=== PATIENT | female | born 1995 | race Caucasian/White ===

== ENCOUNTER 2020-11-18 11:50 | Outpatient (REF) | payer OTHER, SELFPAY ==
[2020-11-18 13:42] LABS: HCG Quantitative < 2 mIU/mL
== END 2020-11-18 11:51 | disposition home or self-care (01) ==
LOC: HO.MANLDS 11:50
PROVIDERS: PCP Internal Medicine; Visit Provider Physician Assistant
DX: Z33.1 Pregnant state, incidental (principal)
CPT/HCPCS: 36415; 84702

== ENCOUNTER 2021-09-03 08:00 | Outpatient (RCR) | payer OTHER, SELFPAY ==
[2021-08-03 12:17] VITALS: BMI 18.3
--- NOTE | 2021-08-03 15:12 | PC.ADMIT ---
Patient is a 25 year old female who was referred to PHP by her PCP d/t increased depression with passive SI no plan or intent, and increased anxiety with panic attacks. Patient tearful at times stating she feels overwhelmed with emotions. Stated she does not enjoy anything anymore. Feelings of helplessness and hopelessness. Reported triggers include having 4 miscarriages as she and her were trying to have a baby. Patient reports significant trauma history and stated the aforementioned information has triggered her past trauma. Patient currently works in the [employer] industry and stated she is on a break for a month. Patient is alert and oriented x4. tearful at times. Presents with depressed mood and affect. Medications reconciled with patient and patients pharmacy. Also reconciled patients Lorazepam-last filled in February with patient's PCP's office who prescribes the medication who stated patient is no longer prescribed this medication. Latia Newsome is aware. Emailed patient a copy of her safety plan and education about Calm breathing techniques for panic.
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
--- NOTE | 2021-08-05 16:32 | PC.NURSE ---
Case opened in treatment team.
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
--- NOTE | 2021-08-11 16:36 | PC.NURSE ---
I sent pt an email with information on [facility] support groups.
--- NOTE | 2021-08-12 14:17 | PC.NURSE ---
I called [facility] to inquire about referral that I faxed on 08/06. Staff informed me that they had the wrong location , so they haven't scheduled her for an intake yet. She told me that she corrected this and that the director of the [facility] office would be reaching out to me with an appointment soon.
--- NOTE | 2021-08-16 12:49 | P.PNPSP_ITS ---
Subjective Subjective Date of Service: 08/16/21 Reason For Visit: Bipolar Disorder, Panic Disorder Guardianship: No Medical Problems Affecting Mental Status: No Interim History: Asked if her could stay in appointment. Describes mood as ?good?. Reports increased anxiety, with panic over weekend. Has had thoughts of passive SI over weekend, no intent or plan. Utilizing Ativan with positive affect. Reports appetite has been up and down. Reports good sleep. Medication Compliance: Yes Side effects from medications: No Attending Groups: Yes Review of Systems Acute medical concerns: No Medical Review of Systems: unchanged Review of Systems Review of Systems Yes all other systems are reviewed and are negative Constitutional: Reports no additional constitutional complaints Mental Status Exam Mental Status Exam Narrative: Well-developed, thin female, in NAD. Patient Appearance: Well Grooomed and Appropriate Patient Orientation: Person, Place, Time and Situation Level of Consciousness: Awake, Appropriate and Alert Patient Behavior: Appropriate, Cooperative and Good Eye Contact Mood Description: Appropriate and Anxious Affect Description: Appropriate and Anxious Patient Cognition Impaired: No Ability to Follow Directions: Excellent Speech Pattern: Clear, Appropriate and Coherent Memory Description: Intact Hallucinations: None Delusions: Not Present Thought Process: Intact Thought Content: positive for Intact and positive for Suicidal Ideation (passive, no intent/plan.) Depressive Symptoms: Increased Anxiety, Changes in Appetite, Loss of Int. in Activity and Thoughts of /Suicide Judgement: Fair Diagnostics Vital Signs (24Hr): BMI result Body Mass Index 18.3 Assessment & Plan Assessment & Plan (1) Bipolar disorder, current episode depressed, mild or moderate severity, unspecified: Status: Acute Code(s): F31.30 - Bipolar disorder, current episode depressed, mild or moderate severity, unspecified Assessment and Plan: Patient reports she has experienced increased anxiety and panic over the weekend. Has had passive SI, no intent or plan. Reports appetite changes, a been down. Reports sleep has been good. Has started taking Lamictal, will switch to 50 mg daily start tomorrow. No side effects reported, discussed in detail risks, benefits, alternatives to treatment with Lamictal. Patient has not yet started utilizing p.r.n. clonidine, reports that she is utilizing p.r.n. lorazepam that she has left over. States that once her lorazepam is done, she will start clonidine. Medication education regarding clonidine provided. Reports that groups are helping to learn and practice new coping skills. Reports a referral has been placed with [facility] for a therapist and a psychiatric prescriber. (2) Post-traumatic stress disorder, chronic: Status: Acute Code(s): F43.12 - Post-traumatic stress disorder, chronic Assessment and Plan: No nightmares, flashbacks, exaggerated startle response, hypervigilance reported. (3) Panic attack: Status: Acute Code(s): F41.0 - Panic disorder [episodic paroxysmal anxiety] Assessment and Plan: Patient does report having experienced panic over the past weekend. She is currently utilizing p.r.n. medications with positive affect. Plan 1. Continue with current [facility] plan of care. 2. Continue with current medications as prescribed. Patient states she does not need any refills at this time. 3. Follow-up as per protocol. Patient educated on: diagnosis, medication risk/benefits and therapeutic strategies Informed Consent: understands Reason for contiued partial hosp. stay Substantial Risk for: harm to self, inability to function and med/psych decompensation Certification I certify that partial hospital treatment is medically necessary due to the symptoms and problems resulting from the patient's mental illness and the failure to treat the patient at the partial hospital level of care would likely result in the patient requiring inpatient psychiatric care which could not be prevented at a less intensive level of care. I spent minutes with the patient and/or on the patient floor today, greater than?50% of which was spent counseling/coordinating care. Discharge Plan Discharge Attending provider: Mane Oneal Medications: New clonidine HCl 0.1 mg tablet 0.1 mg PO TID PRN (Reason: anxiety) Qty: 20 0RF lamotrigine [Lamictal] 25 mg tablet 25 mg PO BEDTIME 14 Days Qty: 14 0RF lamotrigine [Lamictal] 100 mg tablet 50 mg PO DAILY Qty: 30 0RF Rx Instructions: Take 1/2 tab for 2 weeks to total 50 mg, then increase to 1 tab daily to total 100 mg. No Action meloxicam 15 mg Tablet 15 mg PO DAILY PRN (Reason: Pain) 0RF quetiapine [Seroquel] 200 mg Tablet 200 mg PO BEDTIME 0RF omeprazole 40 mg Capsule,Delayed Release(Dr/Ec) 40 mg PO DAILY 0RF amitriptyline 10 mg Tablet 20 mg PO BEDTIME 0RF Label Comments: Patient stated she is tapering off this medication. Starting next Monday she will take 10 mg Q HS x one week then d/c. Once d/c patient is to start Emgality pen loading dose 240 mg then take 120 mg once a month. fludrocortisone 0.1 mg Tablet 0.2 mg PO DAILY 0RF quetiapine [Seroquel] 50 mg Tablet 50 mg PO BEDTIME 0RF ondansetron 4 mg Film 4 mg PO Q8H PRN (Reason: Nausea) 0RF sumatriptan succinate 100 mg Tablet 100 mg PO Q2H PRN (Reason: Migraine Headache) 0RF Rx Instructions: do not exceed 2 doses per 24 hrs alprazolam [Xanax] 0.5 mg Tablet 0.5 mg PO TID PRN (Reason: Anxiety) 0RF Rx Instructions: Filled 08/03/21 for 30 day supply. Telehealth Telehealth Location of provider rendering services: practice address Location of patient: address on file Patient Identification confirmed using: Name, : Yes Telehealth method: video Patient verbally consented to treatment: Yes Patient verbally consented to billing insurance company: Yes Patient informed of any privacy concerns related to visit: Yes Time spent with patient (mins): 20
--- NOTE | 2021-08-18 14:41 | PC.NURSE ---
I called [facility] again to check the status of the referral for pt. The intake person answered the phone and said hold on , then hung up. I called several more times and she eventually answered and immediately hung up. I called several [facility] office locations in [place], and left several messages, but was not able to reach a person.
--- NOTE | 2021-08-18 14:43 | PC.NURSE ---
I called pt and left a message. She was quite shut-down in the 3rd and 4th groups, not verbally participating. I asked her to please call.
--- NOTE | 2021-08-19 10:02 | PC.NURSE ---
I got a call from Marisol (?) at [facility] who left me a message returning one of my calls. She said I need to call the [facility] for info about this referral ([phone]). I did this, and spoke to Fide Juares, who transferred me to an intake person in [place] for more info. I was then told that I have to call the [facility]. She transferred me to [facility] and I left a message for Rose.
--- NOTE | 2021-08-19 16:10 | PC.NURSE ---
Pt called and I spoke to her. She said she wont be able to attend program tomorrow, 08/20/21. She shared that her has been having blurred vision and she needs to accompany her to the eye doctor. Corry inquired about aftercare, and I updated her on the referral to [facility]. We discussed [facility] support, and she has explored their website and filled out an application to join.
--- NOTE | 2021-08-24 12:49 | HO.PHPPROGNO ---
Subjective Subjective Date of Service: 08/24/21 Reason For Visit: Bipolar Disorder, Panic Disorder Interim History: I evaluated the pt this morning and upon interview she reports today was up and down for me, mood is all over the place. Has had increased situational stress, as is having an issue with her eye, on prednisone drops, and her mom is having health issues i.e. there's a spot on her lungs. Says the past week has been great with sleep, uses edibles. Still having nightmares. Reports positive benefit on lamictal, likes the increased dose, I am feeling a lot better. Says xanax is helping, taking it once a night, no panic attacks. No impulsive behavior, i.e. spending, ranting. Medication Compliance: Yes Side effects from medications: No Attending Groups: Yes Review of Systems Acute medical concerns: No Medical Review of Systems: unchanged Mental Status Exam Mental Status Exam Narrative: Well-developed, thin female, in NAD. Patient Appearance:?Well Grooomed and Appropriate Patient Orientation:?Person, Place, Time and Situation Level of Consciousness:?Awake, Appropriate and Alert Patient Behavior:?Appropriate, Cooperative and Good Eye Contact Mood Description:?Appropriate and Anxious Affect Description:?Appropriate and Anxious Patient Cognition Impaired:?No Ability to Follow Directions:?Excellent Speech Pattern:?Clear, Appropriate and Coherent Memory Description:?Intact Hallucinations:?None Delusions:?Not Present Thought Process:?Intact Thought Content:?positive for Intact and positive for Suicidal Ideation (passive, no intent/plan.) Depressive Symptoms:?Increased Anxiety, Changes in Appetite, Loss of Int. in Activity and Thoughts of /Suicide Judgement:?Fair Diagnostics Vital Signs (24Hr): BMI result Body Mass Index 18.3 Assessment & Plan Assessment & Plan (1) Bipolar II disorder: Status: Acute Code(s): F31.81 - Bipolar II disorder (2) Post-traumatic stress disorder, chronic: Status: Acute Code(s): F43.12 - Post-traumatic stress disorder, chronic Plan Pt reports positive effect on Lamictal 50 mg, wants to be able to increase to 100 mg after 2 weeks, no side effects, no rash. Utilizing xanax for panic sx from PCP. She is not using clonidine. Reports some mood dysregulation, dealing with situational stress, however sleep and self care are intact. Will continue medications unchanged and monitor for benefit. Plan 1. Continue with current [facility] plan of care. 2. Continue with current medications as prescribed.? Patient states she does not need any refills at this time. 3. Follow-up as per protocol. Patient educated on: medication risk/benefits Certification I certify that partial hospital treatment is medically necessary due to the symptoms and problems resulting from the patient's mental illness and the failure to treat the patient at the partial hospital level of care would likely result in the patient requiring inpatient psychiatric care which could not be prevented at a less intensive level of care. I spent minutes with the patient and/or on the patient floor today, greater than?50% of which was spent counseling/coordinating care. Discharge Plan Discharge Attending provider: Mane Oneal Additional Instructions: Appointment for intake on September 07 at 11am with MARILIN Talavera at [facility] ([facility] [address] [place] [address], in-person. Medications: New clonidine HCl 0.1 mg tablet 0.1 mg PO TID PRN (Reason: anxiety) Qty: 20 0RF lamotrigine [Lamictal] 25 mg tablet 25 mg PO BEDTIME 14 Days Qty: 14 0RF lamotrigine [Lamictal] 100 mg tablet 50 mg PO DAILY Qty: 30 0RF Rx Instructions: Take 1/2 tab for 2 weeks to total 50 mg, then increase to 1 tab daily to total 100 mg. No Action meloxicam 15 mg Tablet 15 mg PO DAILY PRN (Reason: Pain) 0RF quetiapine [Seroquel] 200 mg Tablet 200 mg PO BEDTIME 0RF omeprazole 40 mg Capsule,Delayed Release(Dr/Ec) 40 mg PO DAILY 0RF amitriptyline 10 mg Tablet 20 mg PO BEDTIME 0RF Label Comments: Patient stated she is tapering off this medication. Starting next Monday she will take 10 mg Q HS x one week then d/c. Once d/c patient is to start Emgality pen loading dose 240 mg then take 120 mg once a month. fludrocortisone 0.1 mg Tablet 0.2 mg PO DAILY 0RF quetiapine [Seroquel] 50 mg Tablet 50 mg PO BEDTIME 0RF ondansetron 4 mg Film 4 mg PO Q8H PRN (Reason: Nausea) 0RF sumatriptan succinate 100 mg Tablet 100 mg PO Q2H PRN (Reason: Migraine Headache) 0RF Rx Instructions: do not exceed 2 doses per 24 hrs alprazolam [Xanax] 0.5 mg Tablet 0.5 mg PO TID PRN (Reason: Anxiety) 0RF Rx Instructions: Filled 08/03/21 for 30 day supply. Stand Alone Forms: Patient Portal Discharge page
--- NOTE | 2021-08-24 15:05 | PC.NURSE ---
I called [facility] to inquire about referral, as no one has called. Central registration transferred me to [facility] location. desk manager staff looked pt up in the computer and again said that the referral went to [facility], and to call them. I called [facility] and staff was unable to find the referral at first. She finally did find it, and then said she might not be able to schedule pt because of the type of insurance she has. She transferred me back to [facility], where I spoke to Tomasa Juares. Tomasa tried making multiple phone calls to different location directors while I was on the phone. She finally found and made an appt for pt for September 07 at 11am with MARILIN Talavera on [address] [facility] in person. Tomasa said that if Rose (website programmer) calls me, to ask if I can get a sooner appointment.
--- NOTE | 2021-08-24 15:35 | PC.NURSE ---
I called pt at her request. She said she wants to inform staff that she was a bit overwhelmed in the first group, as she thought a peer might have been voicing political beliefs that she disagrees with. She said she didn't want staff to think she was being disrespectful. I validated feeling and we discussed options for f this happens again. I also let pt know about her intake appt at [facility][NOTE 3] on 09/07/21.
--- NOTE | 2021-09-02 12:06 | P.PNPSP_ITS ---
Subjective Subjective Date of Service: 09/02/21 Reason For Visit: Bipolar Disorder, Panic Disorder Guardianship: No Medical Problems Affecting Mental Status: No Interim History: Reports the increased lamictal seems to be helping. Overall mood much improved. Feels hopeful for future, and returning to work. Has noticed steady decrease in panic attacks, has now gone several days at a time without needing to use xanax prn. No reports of SI/HI/SIB, no safety concerns. Medication Compliance: Yes Side effects from medications: No Attending Groups: Yes Review of Systems Acute medical concerns: No Medical Review of Systems: unchanged Review of Systems Review of Systems Yes all other systems are reviewed and are negative Constitutional: Reports no additional constitutional complaints Mental Status Exam Mental Status Exam Narrative: Well-developed, thin female, in NAD. Patient Appearance:?Well Grooomed and Appropriate. Patient Orientation:?Person, Place, Time and Situation Level of Consciousness:?Awake, Appropriate and Alert Patient Behavior:?Appropriate, Cooperative and Good Eye Contact Mood Description:? ?I am good ?. Affect Description:? Mood congruent, brightens easily. Patient Cognition Impaired:?No Ability to Follow Directions:?Excellent Speech Pattern:?Clear, Appropriate and Coherent, regular rate and rhythm, full prosody, normal volume. Memory Description:?Intact Hallucinations:?None Delusions:?Not Present Thought Process:?Intact, linear, goal directed. Thought Content:? Intact, linear, goal directed. Depressive Symptoms:?Overall much improved, denies anhedonia. Judgement:?Good Diagnostics Vital Signs (24Hr): BMI result Body Mass Index 18.3 Assessment & Plan Assessment & Plan (1) Bipolar II disorder: Status: Acute Code(s): F31.81 - Bipolar II disorder Assessment and Plan: Patient reports overall mood improvement with added Lamictal. States she is currently taking 100 mg daily, with positive affect. We discussed her current medications, including indications, risks, benefits, and alternatives. She is satisfied with her current medication regimen. She states that her primary care provider is willing to cover her scripts until she sees new psychiatric prescriber. Expresses hope for the future, and returning to work soon. Denies any SI/HI, no safety concerns at this time. (2) Panic attack: Status: Acute Code(s): F41.0 - Panic disorder [episodic paroxysmal anxiety] Assessment and Plan: Patient reports improved symptoms with current medication regimen. Believes the added Lamictal is helping to lessen frequency and severity of panic attacks. She states she has been able to go several days at a time without needing the p.r.n. Xanax. (3) Post-traumatic stress disorder, chronic: Status: Acute Code(s): F43.12 - Post-traumatic stress disorder, chronic Plan 1. Patient appears stable for discharge from [facility] at this time. 2. Patient will follow-up with outpatient providers going forward. Patient educated on: diagnosis, medication risk/benefits and therapeutic strategies Informed Consent: understands Reason for contiued partial hosp. stay Substantial Risk for: stable for discharge Certification I certify that partial hospital treatment is medically necessary due to the symptoms and problems resulting from the patient's mental illness and the failure to treat the patient at the partial hospital level of care would likely result in the patient requiring inpatient psychiatric care which could not be prevented at a less intensive level of care. I spent minutes with the patient and/or on the patient floor today, greater than?50% of which was spent counseling/coordinating care. Discharge Plan Discharge Attending provider: Mane Oneal Additional Instructions: Appointment for intake on September 07 at 11am with MARILIN Talavera at [facility] ([facility]NOTE 3[facility] [address] [place] [address], in-person. Medications: New clonidine HCl 0.1 mg tablet 0.1 mg PO TID PRN (Reason: anxiety) Qty: 20 0RF lamotrigine [Lamictal] 25 mg tablet 25 mg PO BEDTIME 14 Days Qty: 14 0RF lamotrigine [Lamictal] 100 mg tablet 50 mg PO DAILY Qty: 30 0RF Rx Instructions: Take 1/2 tab for 2 weeks to total 50 mg, then increase to 1 tab daily to total 100 mg. No Action meloxicam 15 mg Tablet 15 mg PO DAILY PRN (Reason: Pain) 0RF quetiapine [Seroquel] 200 mg Tablet 200 mg PO BEDTIME 0RF omeprazole 40 mg Capsule,Delayed Release(Dr/Ec) 40 mg PO DAILY 0RF amitriptyline 10 mg Tablet 20 mg PO BEDTIME 0RF Label Comments: Patient stated she is tapering off this medication. Starting next Monday she will take 10 mg Q HS x one week then d/c. Once d/c patient is to start Emgality pen loading dose 240 mg then take 120 mg once a month. fludrocortisone 0.1 mg Tablet 0.2 mg PO DAILY 0RF quetiapine [Seroquel] 50 mg Tablet 50 mg PO BEDTIME 0RF ondansetron 4 mg Film 4 mg PO Q8H PRN (Reason: Nausea) 0RF sumatriptan succinate 100 mg Tablet 100 mg PO Q2H PRN (Reason: Migraine Headache) 0RF Rx Instructions: do not exceed 2 doses per 24 hrs alprazolam [Xanax] 0.5 mg Tablet 0.5 mg PO TID PRN (Reason: Anxiety) 0RF Rx Instructions: Filled 08/03/21 for 30 day supply. Stand Alone Forms: Patient Portal Discharge page Telehealth Telehealth Location of provider rendering services: practice address Location of patient: address on file Patient Identification confirmed using: Name, : Yes Telehealth method: video Patient verbally consented to treatment: Yes Patient verbally consented to billing insurance company: Yes Patient informed of any privacy concerns related to visit: Yes Time spent with patient (mins): 15
--- NOTE | 2021-09-03 08:49 | PC.NURSE ---
Patient discharged from [facility] on 09/02/21. Patient reports she feels good about discharge. Denied SI or thoughts to harm self. Reviewed patient medications with patient. Patient reports she is taking them as prescribed. Medication education provided. She appears to understand why she is taking the medications.
== END 2021-09-03 23:59 | disposition home or self-care (01) ==
LOC: HO.PHPA 08:00
PROVIDERS: Visit Provider Psychiatry & Neurology Psychiatry
DX: F31.30 Bipolar disorder, current episode depressed, mild or moderate severity, unspecified (principal); F41.0 Panic disorder [episodic paroxysmal anxiety]; F60.3 Borderline personality disorder; F43.12 Post-traumatic stress disorder, chronic; F41.1 Generalized anxiety disorder
CPT/HCPCS: 90791; 90853

== ENCOUNTER → 2022-03-02 06:46 | Outpatient (REF) | payer OTHER, SELFPAY | LOC: HO.CARD 06:46 | PROVIDERS: PCP Physician Assistant; Visit Provider Physician Assistant | DX: I95.1 Orthostatic hypotension (principal) | CPT/HCPCS: 93242 ==

== ENCOUNTER 2022-04-05 10:00 | Outpatient (RCR) | payer OTHER, SELFPAY ==
[2022-03-07 13:00] VITALS: BP 112/64; PULSE 64; RESP 12; TEMP 36.4
[2022-03-07 13:02] VITALS: BMI 19.3
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
[2022-03-07 15:51] LABS: Amphetamine Screen Urine Not Detected (Not Detect); Barbiturates, Urine Not Detected (Not Detect); Benzodiazepines Screen Urine POSITIVE (Not Detect); Cannabinoid Screen Urine POSITIVE (Not Detect); Cocaine Screen Urine Not Detected (Not Detect); Fentanyl, urine Not Detected (Not Detect); Opiate Screen Urine Not Detected (Not Detect); Phencyclidine Screen Urine Not Detected (Not Detect)
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
--- NOTE | 2022-03-09 12:14 | PC.NURSE ---
I met with Corry and we reviewed treatment plan. We also discussed schedule and aftercare plans. Corry is interested in individual therapy and wants a DBT group. She says she wants to continue psychiatric medication management with her PCP, as her PCP is educated in psychiatric medication and has a trusting relationship with her. Corry reports having a negative experience with [facility] mental health referrals and experiences and would like to find a therapist in private practice. I spoke to her about the [employer] find a therapist tool, and she agreed to explore this. I told her I'd look into a referral to [facility]'s DBT program as well. Finally, I gave Corry information about [facility], [facility], [facility], and [facility].
--- NOTE | 2022-03-10 15:16 | PC.NURSE ---
Case opened in treatment team.
--- NOTE | 2022-03-17 14:54 | HO.PHPPROGNO ---
Subjective Subjective Date of Service: 03/17/22 Reason For Visit: bipolar,PTSD,panic d/o Guardianship: No Medical Problems Affecting Mental Status: No Interim History: Describes mood as continued up and down, but overall improving . Reports increase of Seroquel is helping manage anxiety. States has not needed to use the Xanax as much. Reports in the morning if not rested for 8 hours, will have palpitations. Recently completed with Holter monitor x3 days. Continues with nightmares. Medication Compliance: Yes Side effects from medications: No Attending Groups: Yes Review of Systems Acute medical concerns: No Medical Review of Systems: unchanged Review of Systems Review of Systems Yes all other systems are reviewed and are negative Constitutional: Reports no additional constitutional complaints Mental Status Exam Mental Status Exam Narrative: NAD Patient Appearance: Well Grooomed and Appropriate Patient Orientation: Person, Place, Time and Situation Level of Consciousness: Appropriate and Alert Patient Behavior: Appropriate, Cooperative and Good Eye Contact Mood Description: Depressed (States improving) and Anxious (States improving) Affect Description: Appropriate Patient Cognition Impaired: No Ability to Follow Directions: Excellent Speech Pattern: Clear, Appropriate and Coherent Memory Description: Intact Hallucinations: None Delusions: Not Present Thought Process: Intact Thought Content: positive for Intact Depressive Symptoms: Increased Anxiety, Insomnia, Difficulty Sleeping, Loss of Int. in Activity and Unhappiness Judgement: Fair Diagnostics Vital Signs (24Hr): BMI result Body Mass Index 19.3 Assessment & Plan Assessment & Plan (1) Bipolar II disorder: Status: Acute Code(s): F31.81 - Bipolar II disorder Assessment and Plan: Describes mood as continued up and down, but overall improving . Finding groups to be helpful. Reports increase of Seroquel is helping manage anxiety. States has not needed to use the Xanax as much. Reports in the morning if not rested for 8 hours, will have palpitations. Recently completed with Holter monitor x3 days. Discussed completing EKG, as patient is now on a higher dose of Seroquel. Discussed checking QTC interval. She was in agreement. Continues with nightmares related to PTSD. Has clonidine, has not been using. Discussed trialing over next several days. If not effective, will switch to low-dose prazosin. Discussed risks and benefits, alternatives to treatment, side effects. (2) Panic attack: Status: Acute Code(s): F41.0 - Panic disorder [episodic paroxysmal anxiety] (3) Post-traumatic stress disorder, chronic: Status: Acute Code(s): F43.12 - Post-traumatic stress disorder, chronic Plan 1. Continue with current [facility] plan of care. 2. Continue with current medication regimen as prescribed. 3. Obtain EKG. 4. Follow-up as per protocol. Patient educated on: diagnosis, medication risk/benefits and therapeutic strategies Informed Consent: understands Reason for contiued partial hosp. stay Substantial Risk for: inability to function, rapid decompensation and med/psych decompensation Certification I certify that partial hospital treatment is medically necessary due to the symptoms and problems resulting from the patient's mental illness and the failure to treat the patient at the partial hospital level of care would likely result in the patient requiring inpatient psychiatric care which could not be prevented at a less intensive level of care. I spent minutes with the patient and/or on the patient floor today, greater than?50% of which was spent counseling/coordinating care. Discharge Plan Discharge Attending provider: Mane Oneal Medications: Discontinued lamotrigine [Lamictal] 25 mg tablet 25 mg PO BEDTIME 14 Days Qty: 14 0RF lamotrigine [Lamictal] 100 mg tablet 50 mg PO DAILY Qty: 30 0RF Rx Instructions: Take 1/2 tab for 2 weeks to total 50 mg, then increase to 1 tab daily to total 100 mg. No Action meloxicam 15 mg Tablet 15 mg PO DAILY PRN (Reason: Pain) quetiapine [Seroquel] 200 mg Tablet 200 mg PO BEDTIME omeprazole 40 mg Capsule,Delayed Release(Dr/Ec) 40 mg PO DAILY fludrocortisone 0.1 mg Tablet 0.2 mg PO DAILY ondansetron 4 mg Film 4 mg PO Q8H PRN (Reason: Nausea) sumatriptan succinate 100 mg Tablet 100 mg PO Q2H PRN (Reason: Migraine Headache) Rx Instructions: do not exceed 2 doses per 24 hrs clonidine HCl 0.1 mg tablet 0.1 mg PO TID PRN (Reason: anxiety) Qty: 20 0RF alprazolam [Xanax] 0.5 mg Tablet 0.5 mg PO TID PRN (Reason: Anxiety) Rx Instructions: Filled 08/03/21 for 30 day supply. Emgality Pen 120 mg/mL Pen Injector 120 mg SUBCUT QMONTH Rx Instructions: Patient reports this as a new medication. lamotrigine 100 mg tablet 100 mg PO DAILY quetiapine 50 mg Tablet 100 mg PO BEDTIME
[2022-03-21 12:01] VITALS: BP 122/74; PULSE 80
--- NOTE | 2022-03-21 16:07 | P.PNPSP_ITS ---
Subjective Subjective Date of Service: 03/21/22 Reason For Visit: bipolar,PTSD,panic d/o Interim History: Describes mood as anxious but improving. No SI concerns. Taking Lamictal 75 mg daily. Reports the increased Seroquel dose it to 50 daily has helped improve anxiety symptoms. Reports has only needed 1 Xanax over the weekend. Tried clonidine, says it helped the 1st night and then was not effective. Medication Compliance: Yes Side effects from medications: No Attending Groups: Yes Review of Systems Acute medical concerns: No Medical Review of Systems: unchanged Review of Systems Review of Systems Yes all other systems are reviewed and are negative Constitutional: Reports no additional constitutional complaints Mental Status Exam Mental Status Exam Narrative: NAD Patient Appearance: Well Grooomed and Appropriate Patient Orientation: Person, Place, Time and Situation Level of Consciousness: Appropriate and Alert Patient Behavior: Appropriate, Cooperative and Good Eye Contact Mood Description: Anxious (States improving) Affect Description: Appropriate and Anxious (Slightly anxious.) Patient Cognition Impaired: No Ability to Follow Directions: Excellent Speech Pattern: Clear, Appropriate and Coherent Memory Description: Intact Hallucinations: None Delusions: Not Present Thought Process: Intact Thought Content: positive for Intact Depressive Symptoms: Increased Anxiety, Insomnia, Difficulty Sleeping and Unhappiness Judgement: Fair Diagnostics Vital Signs (24Hr): Vital Signs - 24 hr 03/21/22 12:01 Pulse Rate 80 Blood Pressure 122/74 BMI result Body Mass Index 19.3 Assessment & Plan Assessment & Plan (1) Bipolar II disorder: Status: Acute Code(s): F31.81 - Bipolar II disorder Assessment and Plan: Reports increase in Seroquel dose has helped improve symptoms, less anxious. Took clonidine 1 night for PTSD/nightmares/sleep. Reports that was affective 1st night, and then not effective. We discussed adding prazosin instead of clonidine. Discussed risks and benefits, advantages, side effects, etc.. She is willing to try this. Discussed obtaining EKG in order to check for QTC interval regarding recent increased dose of quetiapine. Patient recently has had Holter monitor on for 3 days, results not available at this time. No SI, no safety concerns at this time. (2) Post-traumatic stress disorder, chronic: Status: Acute Code(s): F43.12 - Post-traumatic stress disorder, chronic Plan 1. Continue with current [facility] plan of care. 2. Discontinue clonidine. 3. Start prazosin 1 mg at bedtime. Script for 7 days sent to pharmacy. 4. Continue with all other medications as currently prescribed. 5. Follow-up as per protocol. Patient educated on: diagnosis, medication risk/benefits and therapeutic strategies Informed Consent: understands Reason for contiued partial hosp. stay Substantial Risk for: harm to self and inability to function Certification I certify that partial hospital treatment is medically necessary due to the symptoms and problems resulting from the patient's mental illness and the failure to treat the patient at the partial hospital level of care would likely result in the patient requiring inpatient psychiatric care which could not be prevented at a less intensive level of care. I spent minutes with the patient and/or on the patient floor today, greater than?50% of which was spent counseling/coordinating care. Discharge Plan Discharge Attending provider: Mane Oneal Medications: New prazosin 1 mg capsule 1 mg PO BEDTIME Qty: 7 0RF Discontinued clonidine HCl 0.1 mg tablet 0.1 mg PO TID PRN (Reason: anxiety) Qty: 20 0RF lamotrigine [Lamictal] 25 mg tablet 25 mg PO BEDTIME 14 Days Qty: 14 0RF lamotrigine [Lamictal] 100 mg tablet 50 mg PO DAILY Qty: 30 0RF Rx Instructions: Take 1/2 tab for 2 weeks to total 50 mg, then increase to 1 tab daily to total 100 mg. No Action meloxicam 15 mg Tablet 15 mg PO DAILY PRN (Reason: Pain) quetiapine [Seroquel] 200 mg Tablet 200 mg PO BEDTIME omeprazole 40 mg Capsule,Delayed Release(Dr/Ec) 40 mg PO DAILY fludrocortisone 0.1 mg Tablet 0.2 mg PO DAILY ondansetron 4 mg Film 4 mg PO Q8H PRN (Reason: Nausea) sumatriptan succinate 100 mg Tablet 100 mg PO Q2H PRN (Reason: Migraine Headache) Rx Instructions: do not exceed 2 doses per 24 hrs alprazolam [Xanax] 0.5 mg Tablet 0.5 mg PO TID PRN (Reason: Anxiety) Rx Instructions: Filled 08/03/21 for 30 day supply. Emgality Pen 120 mg/mL Pen Injector 120 mg SUBCUT QMONTH Rx Instructions: Patient reports this as a new medication. lamotrigine 100 mg tablet 100 mg PO DAILY quetiapine 50 mg Tablet 100 mg PO BEDTIME Stand Alone Forms: Patient Portal Discharge page Patient Education: Prazosin (By mouth)
--- NOTE | 2022-03-22 10:04 | HO.PHPIOP ---
After speaking with pt, at her request, I called N and placed a referral for a DBT group at [facility] ([phone]). Earlier, I spoke with Diandra Killian, [facility], [facility] and she said they should have an opening in one of the DBT groups, and if not, they are working on gathering clients for a new group. When I spoke to staff in central registration, I was told pt will get a call re: groups in the next week. I also placed a referral for pt to get individual therapy. I was told it's okay if pt wants to continue looking in private practice and can take whichever calls back first or whichever she chooses.
[2022-03-23 12:55] VITALS: BP 126/80; PULSE 76
--- NOTE | 2022-03-29 09:45 | HO.PHPIOP ---
I spoke with pt, and she said she has received a call from [facility] re: a intake for individual therapy. She said, however, that she has not yet heard any info about intake for DBT groups at [place]. I called and spoke to [facility], who transferred me o the hotel front desk clerk, who transferred me to the for Chata Harrison, with whom I left a message. I asked for a call back to confirm that they received the referral for DBT.
--- NOTE | 2022-03-31 13:24 | P.PNPSP_ITS ---
Subjective Subjective Date of Service: 03/31/22 Reason For Visit: bipolar,PTSD,panic d/o Medical Problems Affecting Mental Status: No Interim History: Reports overall doing well. Some increase in depressive symptoms since reducing dose of Lamictal. Decreased anxiety since increase of quetiapine. Prazosin helping with nightmares. No SI/HI, no safety concerns. Medication Compliance: Yes Side effects from medications: No Attending Groups: Yes Review of Systems Acute medical concerns: No Medical Review of Systems: unchanged Review of Systems Review of Systems Yes all other systems are reviewed and are negative Constitutional: Reports no additional constitutional complaints Mental Status Exam Mental Status Exam Narrative: NAD Patient Appearance: Well Grooomed and Appropriate Patient Orientation: Person, Place, Time and Situation Level of Consciousness: Appropriate and Alert Patient Behavior: Appropriate, Cooperative and Good Eye Contact Mood Description: Depressed Affect Description: Appropriate Patient Cognition Impaired: No Ability to Follow Directions: Excellent Speech Pattern: Clear, Appropriate and Coherent Memory Description: Intact Hallucinations: None Delusions: Not Present Thought Process: Intact Thought Content: positive for Intact Depressive Symptoms: Loss of Int. in Activity and Unhappiness Judgement: Fair Diagnostics Vital Signs (24Hr): BMI result Body Mass Index 19.3 Assessment & Plan Assessment & Plan (1) Post-traumatic stress disorder, chronic: Status: Acute Code(s): F43.12 - Post-traumatic stress disorder, chronic Assessment and Plan: Reports improvement with nightmares since taking prazosin. would like to continue it. (2) Panic attack: Status: Acute Code(s): F41.0 - Panic disorder [episodic paroxysmal anxiety] Assessment and Plan: Reports decrease in anxiety symptoms since taking increased dose of quetiapine. Reports utilizing the Xanax much less frequently. (3) Bipolar disorder, current episode depressed, mild or moderate severity, unspecified: Status: Acute Code(s): F31.30 - Bipolar disorder, current episode depressed, mild or moderate severity, unspecified Assessment and Plan: Reports that since the Lamictal has been lowered, she has been experiencing a slow increase in depressive symptoms. States that the issue regarding libido was the reason she had lowered the dose. She states that this is no longer the case, and would like to resume 100 mg daily. No SI/HI, no safety concerns. Plan 1. Continue with current [facility] plan of care. 2. Resume lamotrigine 100 mg daily. Patient has supply at home. 3. Continue quetiapine 300 mg daily. 4. Continue prazosin 1 mg at bedtime. 5. Follow-up as per protocol. Patient educated on: diagnosis, medication risk/benefits and therapeutic stradel mac Informed Consent: understands Reason for contiued partial hosp. stay Substantial Risk for: inability to function and rapid decompensation Certification I certify that partial hospital treatment is medically necessary due to the symptoms and problems resulting from the patient's mental illness and the failure to treat the patient at the partial hospital level of care would likely result in the patient requiring inpatient psychiatric care which could not be prevented at a less intensive level of care. I spent minutes with the patient and/or on the patient floor today, greater than?50% of which was spent counseling/coordinating care. Discharge Plan Discharge Attending provider: Mane Oneal Medications: New quetiapine 300 mg tablet 300 mg PO BEDTIME Qty: 30 0RF prazosin 1 mg capsule 1 mg PO BEDTIME Qty: 30 0RF Discontinued quetiapine [Seroquel] 200 mg Tablet 200 mg PO BEDTIME clonidine HCl 0.1 mg tablet 0.1 mg PO TID PRN (Reason: anxiety) Qty: 20 0RF lamotrigine [Lamictal] 25 mg tablet 25 mg PO BEDTIME 14 Days Qty: 14 0RF lamotrigine [Lamictal] 100 mg tablet 50 mg PO DAILY Qty: 30 0RF Rx Instructions: Take 1/2 tab for 2 weeks to total 50 mg, then increase to 1 tab daily to total 100 mg. quetiapine 50 mg Tablet 100 mg PO BEDTIME No Action meloxicam 15 mg Tablet 15 mg PO DAILY PRN (Reason: Pain) omeprazole 40 mg Capsule,Delayed Release(Dr/Ec) 40 mg PO DAILY fludrocortisone 0.1 mg Tablet 0.2 mg PO DAILY ondansetron 4 mg Film 4 mg PO Q8H PRN (Reason: Nausea) sumatriptan succinate 100 mg Tablet 100 mg PO Q2H PRN (Reason: Migraine Headache) Rx Instructions: do not exceed 2 doses per 24 hrs alprazolam [Xanax] 0.5 mg Tablet 0.5 mg PO TID PRN (Reason: Anxiety) Rx Instructions: Filled 08/03/21 for 30 day supply. Emgality Pen 120 mg/mL Pen Injector 120 mg SUBCUT QMONTH Rx Instructions: Patient reports this as a new medication. lamotrigine 100 mg tablet 100 mg PO DAILY Stand Alone Forms: Patient Portal Discharge page Patient Education: Prazosin (By mouth)
--- NOTE | 2022-04-05 13:15 | P.PNPSP_ITS ---
Subjective Subjective Date of Service: 04/05/22 Reason For Visit: bipolar,PTSD,panic d/o Medical Problems Affecting Mental Status: No Interim History: Lives mood as ?anxious but good ?. States the anxiety is due to completing program today, ?in a good way ?. No SI/HI, reports feeling safe. Satisfied with current medications. Continues with chronic poor sleep. Looking forward to stop completing intake at [facility], to start DBT group. Also plans to start attending bipolar/depression support group. Feels stable for discharge from [facility] today. Medication Compliance: Yes Side effects from medications: No Attending Groups: Yes Review of Systems Acute medical concerns: No Medical Review of Systems: unchanged Review of Systems Review of Systems Yes all other systems are reviewed and are negative Mental Status Exam Mental Status Exam Narrative: NAD Patient Appearance: Well Grooomed and Appropriate Patient Orientation: Person, Place, Time and Situation Level of Consciousness: Appropriate and Alert Patient Behavior: Appropriate, Cooperative and Good Eye Contact Mood Description: Anxious Affect Description: Appropriate Patient Cognition Impaired: No Ability to Follow Directions: Excellent Speech Pattern: Clear, Appropriate and Coherent Memory Description: Intact Hallucinations: None Delusions: Not Present Thought Process: Intact Thought Content: positive for Intact Depressive Symptoms: Difficulty Sleeping Judgement: Good Diagnostics Vital Signs (24Hr): BMI result Body Mass Index 19.3 Assessment & Plan Assessment & Plan (1) Bipolar II disorder: Status: Acute Code(s): F31.81 - Bipolar II disorder Assessment and Plan: Lives mood as ?anxious but good ?. States the anxiety is due to completing program today, ?in a good way ?. No SI/HI, reports feeling safe. Satisfied with current medications. Took Xanax this morning, with positive affect. Continues with chronic poor sleep. Looking forward to stop completing intake at [facility], to start DBT group. Also plans to start attending bipolar/depression support group. Feels stable for discharge from [facility] today. (2) Panic attack: Status: Acute Code(s): F41.0 - Panic disorder [episodic paroxysmal anxiety] (3) Post-traumatic stress disorder, chronic: Status: Acute Code(s): F43.12 - Post-traumatic stress disorder, chronic Plan 1. Patient appears stable for discharge from [facility] at this time. 2. Patient to follow-up with outpatient providers going forward. Patient educated on: diagnosis, medication risk/benefits and therapeutic strategies Reason for contiued partial hosp. stay Substantial Risk for: stable for discharge Certification I certify that partial hospital treatment is medically necessary due to the symptoms and problems resulting from the patient's mental illness and the failure to treat the patient at the partial hospital level of care would likely result in the patient requiring inpatient psychiatric care which could not be prevented at a less intensive level of care. I spent minutes with the patient and/or on the patient floor today, greater than?50% of which was spent counseling/coordinating care. Discharge Plan Discharge Attending provider: Mane Oneal Medications: New quetiapine 300 mg tablet 300 mg PO BEDTIME Qty: 30 0RF prazosin 1 mg capsule 1 mg PO BEDTIME Qty: 30 0RF Discontinued quetiapine [Seroquel] 200 mg Tablet 200 mg PO BEDTIME clonidine HCl 0.1 mg tablet 0.1 mg PO TID PRN (Reason: anxiety) Qty: 20 0RF lamotrigine [Lamictal] 25 mg tablet 25 mg PO BEDTIME 14 Days Qty: 14 0RF lamotrigine [Lamictal] 100 mg tablet 50 mg PO DAILY Qty: 30 0RF Rx Instructions: Take 1/2 tab for 2 weeks to total 50 mg, then increase to 1 tab daily to total 100 mg. quetiapine 50 mg Tablet 100 mg PO BEDTIME No Action meloxicam 15 mg Tablet 15 mg PO DAILY PRN (Reason: Pain) omeprazole 40 mg Capsule,Delayed Release(Dr/Ec) 40 mg PO DAILY fludrocortisone 0.1 mg Tablet 0.2 mg PO DAILY ondansetron 4 mg Film 4 mg PO Q8H PRN (Reason: Nausea) sumatriptan succinate 100 mg Tablet 100 mg PO Q2H PRN (Reason: Migraine Headache) Rx Instructions: do not exceed 2 doses per 24 hrs alprazolam [Xanax] 0.5 mg Tablet 0.5 mg PO TID PRN (Reason: Anxiety) Rx Instructions: Filled 08/03/21 for 30 day supply. Emgality Pen 120 mg/mL Pen Injector 120 mg SUBCUT QMONTH Rx Instructions: Patient reports this as a new medication. lamotrigine 100 mg tablet 100 mg PO DAILY Stand Alone Forms: Patient Portal Discharge page Patient Education: Prazosin (By mouth), Bipolar Disorder (DC), Post Traumatic Stress Disorder (DC)
--- NOTE | 2022-04-06 16:04 | HO.PHPIOP ---
I called N to confirm pt's intake date, as pt said they contacted her to set up an appointment for intake. She is scheduled fot DBT intake on 04/11/22 at 12 noon, but I was told she had an intake for individual therapy on 03/22/22, and is now on a wait list for a first appointment. I called pt and left her a message. I gave her the number for [facility] to attend the Monday DBSA groups, and gave her a list of private practice therapists to call as well (Jennifer Polanco, [facility], Mary Son- all who take [facility] and have availability according to psychology today).
== END 2022-04-05 23:59 | disposition home or self-care (01) ==
LOC: HO.PHPA 10:00
PROVIDERS: Nurse Practitioner Psychiatric/Mental Health; Visit Provider Psychiatry & Neurology Psychiatry
DX: F31.5 Bipolar disorder, current episode depressed, severe, with psychotic features (principal); F41.0 Panic disorder [episodic paroxysmal anxiety]; F60.3 Borderline personality disorder; F43.12 Post-traumatic stress disorder, chronic; F12.20 Cannabis dependence, uncomplicated; Z79.899 Other long term (current) drug therapy
CPT/HCPCS: 80307; 90791; 90792; 90853

== ENCOUNTER 2022-06-03 14:44 | Outpatient (REF) | payer OTHER, SELFPAY ==
[2022-06-03 18:13] LABS: Appearance Urine Turbid; Color Urine Yellow; Glucose Urine UA Negative (Negative); Leukocyte Esterase Urine Large (3+) (Negative); Nitrite Urine Negative (Negative); PH 6.5 (5.0-9.0); Specific Gravity - Urine 1.025 (1.005-1.025); UMIC TRIGGER UACC YES; Urine Blood Trace (Negative); Urine Ketones Trace mg/dL (Negative); Urine Protein 30 (1+) mg/dL (Neg-Trace)
[2022-06-03 18:23] LABS: Bacteria Urine 4+ (None Seen); UACC Culture Trigger YES; WBC Urine >50 /HPF (0-5)
== END 2022-06-03 14:45 | disposition home or self-care (01) ==
LOC: HO.MANLDS 14:44
PROVIDERS: Visit Provider Physician Assistant
DX: R82.998 Other abnormal findings in urine (principal)
CPT/HCPCS: 81001; 87086

== ENCOUNTER 2022-06-06 18:11 | Emergency (ER) | payer OTHER, SELFPAY ==
--- NOTE | ~2022-06-06 | CT_ITS ---
EXAMINATION: CT ABDOMEN AND PELVIS WITHOUT CONTRAST CLINICAL INFORMATION: Back and lower abdominal pain with urinary symptoms. COMPARISON: None TECHNIQUE: Multidetector volumetric imaging was performed from the superior aspect of the liver through the pubic symphysis. Sagittal and coronal reformatted images were obtained on the technologist's workstation. This CT examination was performed using dose optimization techniques as appropriate, variously including the following: *Automated exposure control *Adjustment of mA and/or kV according to patient size (this includes techniques or standardized protocols for targeted exams where dose is matched to indication/reason for exam; i.e. extremities or head) *Use of iterative reconstruction technique DLP: 318 mGy-cm FINDINGS: LUNG BASES: The visualized lung bases are unremarkable. LIVER, GALLBLADDER, AND BILIARY TREE: The liver is normal in size, shape, and attenuation. No focal hepatic lesion or biliary ductal dilatation is present. The gallbladder is unremarkable with no evidence of radiopaque gallstones, gallbladder wall thickening, or obvious pericholecystic inflammatory changes. PANCREAS: Unremarkable. SPLEEN: Unremarkable. ADRENAL GLANDS: Unremarkable. KIDNEYS AND URETERS: The kidneys are normal in size, shape, and attenuation. There are bilateral punctate nonobstructive calculi numbering at least 3 within the left kidney and 2 within the right kidney. No hydronephrosis. No ureteral calculi. No perinephric stranding. BLADDER: Unremarkable. GASTROINTESTINAL TRACT: The small and large bowel are unremarkable. The appendix is unremarkable. ABDOMINAL WALL: No significant hernia is appreciated. LYMPH NODES: Normal. VASCULAR: Unremarkable. PELVIC VISCERA: Unremarkable. OSSEOUS STRUCTURES: Unremarkable. CT/CT abdomen pelvis wo IV con IMPRESSION: * No acute findings within the abdomen or pelvis. * Bilateral punctate nonobstructive intrarenal calculi. * No ureteral calculi or hydronephrosis.
[2022-06-06 19:20] VITALS: BP 149/105; PULSE 81; RESP 16; TEMP 36.7; O2SAT 99; BMI 17.7
--- NOTE | 2022-06-06 19:20 | ED_ITS ---
HPI - General Adult General Chief complaint: Urogenital-Female <DAMIÁN Mahmood - Last Filed: 06/06/22 19:24> Stated complaint: uti non responsive to 2 antibiotics <DAMIÁN Mahmood - Last Filed: 06/06/22 19:24> Time Seen by Provider: 06/06/22 21:33 <DAMIÁN Mahmood - Last Filed: 06/06/22 19:24> Source: patient <Johnie Do MD - Last Filed: 06/07/22 00:14> Mode of arrival: ambulatory <Johnie Do MD - Last Filed: 06/07/22 00:14> Limitations: no limitations <Johnie Do MD - Last Filed: 06/07/22 00:14> History of Present Illness HPI narrative: 26yoF presenting to the ED c c/o worsening urinary symptoms x 2 weeks worse today. Was on amoxicillin for ear infection now on macrobid on day 3 for UTI now c pain to lower back and when she urinates she has a sharp suprapubic abdominal pain/cramping. Fever of 102.0 about 2-3 days. Denies any other symptoms complaints or concerns at this time. Patient does have a history of migraine on sumatriptan and Emgality injections been having headache for last 4 weeks with nausea and vomiting photosensitive+ Patient had a UA done at PCP office on 06/03 culture was negative repeat UA done in the ER at the triage showed improvement of WBC count nitrite positive with WBCs 0-5 <Johnie Do MD - Last Filed: 06/07/22 00:14> Related Data Home medications: Home Medications Medication Instructions Recorded Confirmed fludrocortisone 0.1 mg tablet 0.2 mg PO DAILY 08/03/21 03/07/22 meloxicam 15 mg tablet 15 mg PO DAILY PRN Pain 08/03/21 03/07/22 omeprazole 40 mg capsule,delayed 40 mg PO DAILY 08/03/21 03/07/22 release ondansetron 4 mg oral soluble film 4 mg PO Q8H PRN Nausea 08/03/21 03/07/22 sumatriptan succinate 100 mg tablet 100 mg PO Q2H PRN Migraine Headache 08/03/21 03/07/22 alprazolam 0.5 mg tablet (Xanax) 0.5 mg PO TID PRN Anxiety 08/05/21 03/07/22 galcanezumab-gnlm 120 mg/mL 120 mg subcut QMONTH 09/03/21 03/07/22 subcutaneous pen injector (Emgality Pen) lamotrigine 100 mg tablet 100 mg PO DAILY 03/07/22 03/07/22 Previous Rx's Medication Instructions Recorded prazosin 1 mg capsule 1 mg PO BEDTIME #30 caps 03/31/22 quetiapine 300 mg tablet 300 mg PO BEDTIME #30 tabs 03/31/22 lwrwxwexcj-lewcrnazldqdk-fsvvnyre 1 cap PO Q6H PRN headache #20 caps 06/07/22 50 mg-300 mg-40 mg capsule (Fioricet) phenazopyridine 200 mg tablet 200 mg PO TID 2 days #6 tabs 06/07/22 (Pyridium) <DAMIÁN Mahmood - Last Filed: 06/06/22 19:24> Allergies/adverse reactions: Allergies Allergy/AdvReac Type Severity Reaction Status Date / Time topiramate [From Topamax] AdvReac Leukopenia Verified 08/03/21 12:19 <DAMIÁN Mahmood - Last Filed: 06/06/22 19:24> Review of Systems Review of Systems: Yes all other systems are reviewed and are negative <Johnie Do MD - Last Filed: 06/07/22 00:14> [facility] Past Medical History Medical History: Medical History Asthma History of recurrent miscarriages Migraine Postural orthostatic tachycardia syndrome <DAMIÁN Mahmood - Last Filed: 06/06/22 19:24> Social History Social History: Social History Household Members: Spouse Patient Tobacco Use Status: Never used Tobacco Smoked in Last 30 Days: No Use of substances other than those prescribed or required for medical reasons: No Substance Use Type: Marijuana Advance Directives: No Advance Directives Information Provided: No Patient : No <DAMIÁN Mahmood - Last Filed: 06/06/22 19:24> Physical Exam ED Vital Signs: Vital Signs - 24 hr 06/06/22 19:20 06/06/22 21:27 06/06/22 23:11 Temperature 98.0 F 98.0 F 97.5 F Pulse Rate 81 67 78 Respiratory Rate 16 14 12 Blood Pressure 149/105 H 158/109 H 134/93 H Pulse Oximetry 99 98 100 Oxygen Delivery Method Room Air Room Air Room Air BMI result Body Mass Index 17.7 <DAMIÁN Mahmood - Last Filed: 06/06/22 19:24> Vital Signs - 24 hr 06/06/22 19:20 06/06/22 21:27 06/06/22 23:11 Temperature 98.0 F 98.0 F 97.5 F Pulse Rate 81 67 78 Respiratory Rate 16 14 12 Blood Pressure 149/105 H 158/109 H 134/93 H Pulse Oximetry 99 98 100 Oxygen Delivery Method Room Air Room Air Room Air BMI result Body Mass Index 17.7 <Johnie Do MD - Last Filed: 06/07/22 00:14> Appearance: Alert. Oriented X3. No acute distress. Eyes: PERRLA, No Nystagmus ENT: Pharynx normal. Oral Mucosa moist Neck: Normal inspection. Neck supple. CVS: Normal heart rate and rhythm. Pulses normal. Respiratory: No respiratory distress. Equal air entry bilateral, no wheezing/rales/rhonchi Abdomen: Soft and nontender. Bowel sounds are present, no mass palpable, no CVA tenderness diffuse tenderness and lumbar spine area Skin: Skin warm and dry. Normal skin color. Normal skin turgor. Extremities: No lower extremity edema. No calf tenderness Neuro: Oriented X 3. No motor deficit. <Johnie Do MD - Last Filed: 06/07/22 00:14> Course Course Course Narrative: RME- 19:25pm 26yoF presenting to the ED c c/o worsening urinary symptoms x 2 weeks worse today. Was on amoxicillin for ear infection now on macrobid on day 3 for UTI now c pain to lower back and when she urinates she has a sharp suprapubic abdominal pain/cramping. Fever of 102.0 about 2-3 days. Denies any other symptoms complaints or concerns at this time. Plan: Labs, UA, COVID/RSV/flu swab and a CT scan of abdomen pelvis ordered at this time. Patient will be sent back to the waiting room to be evaluated in the ED. <DAMIÁN Mahmood - Last Filed: 06/06/22 19:24> Medications Administered Discontinued Medications Generic Name Dose Route Start Last Admin Trade Name Freq PRN Reason Stop Dose Admin Dexamethasone 10 mg 06/06/22 22:20 06/06/22 23:01 Dexamethasone 2 Mg Tablet PO 06/06/22 22:21 10 mg ONCE ONE Administration Diphenhydramine HCl 25 mg 06/06/22 22:20 06/06/22 23:01 Diphenhydramine Hcl 50 Mg/Ml Vial IVPUSH 06/06/22 22:21 25 mg ONCE ONE Administration Sodium Chloride 1,000 mls @ 999 mls/hr 06/06/22 22:20 06/06/22 23:01 Ns IV 06/06/22 23:20 999 mls/hr .Q1H1M ONE Administration Ketorolac Tromethamine 30 mg 06/06/22 22:20 06/06/22 23:01 Ketorolac Tromethamine 30 Mg/Ml Vial IVPUSH 06/06/22 22:21 30 mg ONCE ONE Administration Metoclopramide HCl 10 mg 06/06/22 22:20 06/06/22 23:01 Metoclopramide Hcl 10 Mg/2 Ml Vial IVPUSH 06/06/22 22:21 10 mg ONCE ONE Administration Phenazopyridine HCl 200 mg 06/06/22 22:22 06/06/22 23:02 Phenazopyridine Hcl 200 Mg Tablet PO 06/06/22 22:23 200 mg ONCE ONE Administration <DAMIÁN Mahmood - Last Filed: 06/06/22 19:24> Medications Administered Discontinued Medications Generic Name Dose Route Start Last Admin Trade Name Freq PRN Reason Stop Dose Admin Dexamethasone 10 mg 06/06/22 22:20 06/06/22 23:01 Dexamethasone 2 Mg Tablet PO 06/06/22 22:21 10 mg ONCE ONE Administration Diphenhydramine HCl 25 mg 06/06/22 22:20 06/06/22 23:01 Diphenhydramine Hcl 50 Mg/Ml Vial IVPUSH 06/06/22 22:21 25 mg ONCE ONE Administration Sodium Chloride 1,000 mls @ 999 mls/hr 06/06/22 22:20 06/06/22 23:01 Ns IV 06/06/22 23:20 999 mls/hr .Q1H1M ONE Administration Ketorolac Tromethamine 30 mg 06/06/22 22:20 06/06/22 23:01 Ketorolac Tromethamine 30 Mg/Ml Vial IVPUSH 06/06/22 22:21 30 mg ONCE ONE Administration Metoclopramide HCl 10 mg 06/06/22 22:20 06/06/22 23:01 Metoclopramide Hcl 10 Mg/2 Ml Vial IVPUSH 06/06/22 22:21 10 mg ONCE ONE Administration Phenazopyridine HCl 200 mg 06/06/22 22:22 06/06/22 23:02 Phenazopyridine Hcl 200 Mg Tablet PO 06/06/22 22:23 200 mg ONCE ONE Administration <Johnie Do MD - Last Filed: 06/07/22 00:14> Medical Decision Making Medical Decision Making [facility] Narrative: Patient with migraine headache improving UTI felt better after IV Toradol Benadryl and regular discharge patient home on Fioricet and advised to continue Macrobid <Johnie Do MD - Last Filed: 06/07/22 00:14> Lab Data [facility] Lab Attestation statement: I reviewed the patient's lab results. <Johnie Do MD - Last Filed: 06/07/22 00:14> Result Diagrams: : 06/06/22 19:49 06/06/22 19:49 <DAMIÁN Mahmood - Last Filed: 06/06/22 19:24> Labs: Lab Results 06/06/22 06/06/22 06/06/22 Range/Units 19:49 19:49 19:49 WBC 6.6 (4.8-10.8) X10*3/uL RBC 4.42 (4.20-5.50) X10*6/uL Hgb 12.3 (12.0-16.0) g/dl Hct 38.8 (37.0-47.0) % MCV 87.8 (80.0-98.0) fL MCH 27.8 (27.0-33.0) pg MCHC 31.7 (31.0-35.0) g/dl RDW 13.9 (11.0-16.0) % Plt Count 288 (160-400) X10*3/uL MPV 9.5 (9.4-12.3) fL Immature Gran % (Auto) 0.2 (0.0-0.4) % Neut % (Auto) 54.6 (45-73) % Lymph % (Auto) 34.5 (20-40) % [place] % (Auto) 9.1 (2-11) % Eos % (Auto) 0.8 (0-4) % Baso % (Auto) 0.8 (0-2) % Lymph # (Auto) 2.3 (1.2-4.9) X10*3/uL [place] # (Auto) 0.6 (0.1-1.2) X10*3/uL Eos # (Auto) 0.1 (0.0-0.4) X10*3/uL Baso # (Auto) 0.1 (0.0-0.2) X10*3/uL Abs Immat Gran (auto) 0.01 (0.00-0.03) X10*3/uL Absolute Neuts (auto) 3.6 (2.0-8.3) x10*3/uL Absolute Nucleated RBC 0.000 (0.0-0.012) X10*3/uL Nucleated RBC % (auto) 0.0 (0.0-0.2) /100WBC PT 11.2 (10.0-13.1) SEC INR 1.0 (0.9-1.1) Sodium 142 (135-145) mmol/L Potassium 3.7 (3.3-5.1) mmol/L Chloride 107 (96-108) mmol/L Carbon Dioxide 29 (22-29) mmol/L Anion Gap 10 L (12-20) BUN 9 (9-16) mg/dL Creatinine 0.81 (0.5-1.4) mg/dL Estim Creat Clear Calc 81.4 Estimated GFR > 60 Random Glucose 113 (60-115) mg/dL Calcium 9.6 (8.4-10.2) mg/dL Magnesium 2.3 (1.6-2.6) mg/dL Total Bilirubin 0.6 (0.0-1.0) mg/dL AST 14 (5-31) U/L ALT 13 (0-31) U/L Alkaline Phosphatase 63 (39-117) U/L Total Protein 6.9 (6.5-8.0) g/dL Albumin 4.6 (3.5-5.0) g/dL Lipase 35 (8-78) U/L Beta HCG, Quant < 2 mIU/mL Urine Color Urine Appearance Urine pH (5.0-9.0) Ur Specific [place] (1.005-1.025) Urine Protein (Neg-Trace) mg/dL Urine Glucose (UA) (Negative) mg/dL Urine Ketones (Negative) mg/dL Urine Blood (Negative) Urine Nitrite (Negative) Ur Leukocyte Esterase (Negative) Urine RBC (0-2) /HPF Urine WBC (0-5) /HPF Ur Squamous Epith Cells (0-2) /HPF Urine Bacteria (None Seen) Hyaline Casts (0-2) /LPF Influenza Type A (PCR) (Negative) Influenza Type B (PCR) (Negative) RSV RNA Qual (PCR) (Negative) SARS-CoV-2 RNA (RT-PCR) (Negative) 06/06/22 06/06/22 Range/Units 19:49 19:49 WBC (4.8-10.8) X10*3/uL RBC (4.20-5.50) X10*6/uL Hgb (12.0-16.0) g/dl Hct (37.0-47.0) % MCV (80.0-98.0) fL MCH (27.0-33.0) pg MCHC (31.0-35.0) g/dl RDW (11.0-16.0) % Plt Count (160-400) X10*3/uL MPV (9.4-12.3) fL Immature Gran % (Auto) (0.0-0.4) % Neut % (Auto) (45-73) % Lymph % (Auto) (20-40) % [place] % (Auto) (2-11) % Eos % (Auto) (0-4) % Baso % (Auto) (0-2) % Lymph # (Auto) (1.2-4.9) X10*3/uL [place] # (Auto) (0.1-1.2) X10*3/uL Eos # (Auto) (0.0-0.4) X10*3/uL Baso # (Auto) (0.0-0.2) X10*3/uL Abs Immat Gran (auto) (0.00-0.03) X10*3/uL Absolute Neuts (auto) (2.0-8.3) x10*3/uL Absolute Nucleated RBC (0.0-0.012) X10*3/uL Nucleated RBC % (auto) (0.0-0.2) /100WBC PT (10.0-13.1) SEC INR (0.9-1.1) Sodium (135-145) mmol/L Potassium (3.3-5.1) mmol/L Chloride (96-108) mmol/L Carbon Dioxide (22-29) mmol/L Anion Gap (12-20) BUN (9-16) mg/dL Creatinine (0.5-1.4) mg/dL Estim Creat Clear Calc Estimated GFR Random Glucose (60-115) mg/dL Calcium (8.4-10.2) mg/dL Magnesium (1.6-2.6) mg/dL Total Bilirubin (0.0-1.0) mg/dL AST (5-31) U/L ALT (0-31) U/L Alkaline Phosphatase (39-117) U/L Total Protein (6.5-8.0) g/dL Albumin (3.5-5.0) g/dL Lipase (8-78) U/L Beta HCG, Quant mIU/mL Urine Color Dark Yellow Urine Appearance Cloudy Urine pH 6.5 (5.0-9.0) Ur Specific [place] 1.015 (1.005-1.025) Urine Protein Negative (Neg-Trace) mg/dL Urine Glucose (UA) Negative (Negative) mg/dL Urine Ketones Trace (Negative) mg/dL Urine Blood Negative (Negative) Urine Nitrite Positive H (Negative) Ur Leukocyte Esterase Small (1+) H (Negative) Urine RBC 3-5 H (0-2) /HPF Urine WBC 0-5 (0-5) /HPF Ur Squamous Epith Cells 6-10 (0-2) /HPF Urine Bacteria 1+ (None Seen) Hyaline Casts 0-2 (0-2) /LPF Influenza Type A (PCR) NEGATIVE (Negative) Influenza Type B (PCR) NEGATIVE (Negative) RSV RNA Qual (PCR) NEGATIVE (Negative) SARS-CoV-2 RNA (RT-PCR) NEGATIVE (Negative) <DAMIÁN Mahmood - Last Filed: 06/06/22 19:24> Lab Results 06/06/22 06/06/22 06/06/22 Range/Units 19:49 19:49 19:49 WBC 6.6 (4.8-10.8) X10*3/uL RBC 4.42 (4.20-5.50) X10*6/uL Hgb 12.3 (12.0-16.0) g/dl Hct 38.8 (37.0-47.0) % MCV 87.8 (80.0-98.0) fL MCH 27.8 (27.0-33.0) pg MCHC 31.7 (31.0-35.0) g/dl RDW 13.9 (11.0-16.0) % Plt Count 288 (160-400) X10*3/uL MPV 9.5 (9.4-12.3) fL Immature Gran % (Auto) 0.2 (0.0-0.4) % Neut % (Auto) 54.6 (45-73) % Lymph % (Auto) 34.5 (20-40) % [place] % (Auto) 9.1 (2-11) % Eos % (Auto) 0.8 (0-4) % Baso % (Auto) 0.8 (0-2) % Lymph # (Auto) 2.3 (1.2-4.9) X10*3/uL [place] # (Auto) 0.6 (0.1-1.2) X10*3/uL Eos # (Auto) 0.1 (0.0-0.4) X10*3/uL Baso # (Auto) 0.1 (0.0-0.2) X10*3/uL Abs Immat Gran (auto) 0.01 (0.00-0.03) X10*3/uL Absolute Neuts (auto) 3.6 (2.0-8.3) x10*3/uL Absolute Nucleated RBC 0.000 (0.0-0.012) X10*3/uL Nucleated RBC % (auto) 0.0 (0.0-0.2) /100WBC PT 11.2 (10.0-13.1) SEC INR 1.0 (0.9-1.1) Sodium 142 (135-145) mmol/L Potassium 3.7 (3.3-5.1) mmol/L Chloride 107 (96-108) mmol/L Carbon Dioxide 29 (22-29) mmol/L Anion Gap 10 L (12-20) BUN 9 (9-16) mg/dL Creatinine 0.81 (0.5-1.4) mg/dL Estim Creat Clear Calc 81.4 Estimated GFR > 60 Random Glucose 113 (60-115) mg/dL Calcium 9.6 (8.4-10.2) mg/dL Magnesium 2.3 (1.6-2.6) mg/dL Total Bilirubin 0.6 (0.0-1.0) mg/dL AST 14 (5-31) U/L ALT 13 (0-31) U/L Alkaline Phosphatase 63 (39-117) U/L Total Protein 6.9 (6.5-8.0) g/dL Albumin 4.6 (3.5-5.0) g/dL Lipase 35 (8-78) U/L Beta HCG, Quant < 2 mIU/mL Urine Color Urine Appearance Urine pH (5.0-9.0) Ur Specific [place] (1.005-1.025) Urine Protein (Neg-Trace) mg/dL Urine Glucose (UA) (Negative) mg/dL Urine Ketones (Negative) mg/dL Urine Blood (Negative) Urine Nitrite (Negative) Ur Leukocyte Esterase (Negative) Urine RBC (0-2) /HPF Urine WBC (0-5) /HPF Ur Squamous Epith Cells (0-2) /HPF Urine Bacteria (None Seen) Hyaline Casts (0-2) /LPF Influenza Type A (PCR) (Negative) Influenza Type B (PCR) (Negative) RSV RNA Qual (PCR) (Negative) SARS-CoV-2 RNA (RT-PCR) (Negative) 06/06/22 06/06/22 Range/Units 19:49 19:49 WBC (4.8-10.8) X10*3/uL RBC (4.20-5.50) X10*6/uL Hgb (12.0-16.0) g/dl Hct (37.0-47.0) % MCV (80.0-98.0) fL MCH (27.0-33.0) pg MCHC (31.0-35.0) g/dl RDW (11.0-16.0) % Plt Count (160-400) X10*3/uL MPV (9.4-12.3) fL Immature Gran % (Auto) (0.0-0.4) % Neut % (Auto) (45-73) % Lymph % (Auto) (20-40) % [place] % (Auto) (2-11) % Eos % (Auto) (0-4) % Baso % (Auto) (0-2) % Lymph # (Auto) (1.2-4.9) X10*3/uL [place] # (Auto) (0.1-1.2) X10*3/uL Eos # (Auto) (0.0-0.4) X10*3/uL Baso # (Auto) (0.0-0.2) X10*3/uL Abs Immat Gran (auto) (0.00-0.03) X10*3/uL Absolute Neuts (auto) (2.0-8.3) x10*3/uL Absolute Nucleated RBC (0.0-0.012) X10*3/uL Nucleated RBC % (auto) (0.0-0.2) /100WBC PT (10.0-13.1) SEC INR (0.9-1.1) Sodium (135-145) mmol/L Potassium (3.3-5.1) mmol/L Chloride (96-108) mmol/L Carbon Dioxide (22-29) mmol/L Anion Gap (12-20) BUN (9-16) mg/dL Creatinine (0.5-1.4) mg/dL Estim Creat Clear Calc Estimated GFR Random Glucose (60-115) mg/dL Calcium (8.4-10.2) mg/dL Magnesium (1.6-2.6) mg/dL Total Bilirubin (0.0-1.0) mg/dL AST (5-31) U/L ALT (0-31) U/L Alkaline Phosphatase (39-117) U/L Total Protein (6.5-8.0) g/dL Albumin (3.5-5.0) g/dL Lipase (8-78) U/L Beta HCG, Quant mIU/mL Urine Color Dark Yellow Urine Appearance Cloudy Urine pH 6.5 (5.0-9.0) Ur Specific [place] 1.015 (1.005-1.025) Urine Protein Negative (Neg-Trace) mg/dL Urine Glucose (UA) Negative (Negative) mg/dL Urine Ketones Trace (Negative) mg/dL Urine Blood Negative (Negative) Urine Nitrite Positive H (Negative) Ur Leukocyte Esterase Small (1+) H (Negative) Urine RBC 3-5 H (0-2) /HPF Urine WBC 0-5 (0-5) /HPF Ur Squamous Epith Cells 6-10 (0-2) /HPF Urine Bacteria 1+ (None Seen) Hyaline Casts 0-2 (0-2) /LPF Influenza Type A (PCR) NEGATIVE (Negative) Influenza Type B (PCR) NEGATIVE (Negative) RSV RNA Qual (PCR) NEGATIVE (Negative) SARS-CoV-2 RNA (RT-PCR) NEGATIVE (Negative) <Johnie Do MD - Last Filed: 06/07/22 00:14> Discharge Plan Discharge Clinical Impression: Migraine, UTI (urinary tract infection) <DAMIÁN Mahmood - Last Filed: 06/06/22 19:24> Patient Disposition: Home, Self-Care <DAMIÁN Mahmood - Last Filed: 06/06/22 19:24> Instructions: Urinary Tract Infection in Women (ED), Migraine Headache (ED) <DAMIÁN Mahmood - Last Filed: 06/06/22 19:24> Additional Instructions: Continue to take your medication as prescribed by PCP Pyridium for discomfort while urination as prescribed Fioricet for persistent headaches <DAMIÁN Mahmood - Last Filed: 06/06/22 19:24> Prescriptions: New nxvbpqljjw-brmhiixqzzkqb-xbzb [Fioricet] 50-300-40 mg capsule 1 cap PO Q6H PRN (Reason: headache) Qty: 20 0RF phenazopyridine [Pyridium] 200 mg tablet 200 mg PO TID 2 Days Qty: 6 0RF No Action meloxicam 15 mg Tablet 15 mg PO DAILY PRN (Reason: Pain) omeprazole 40 mg Capsule,Delayed Release(Dr/Ec) 40 mg PO DAILY fludrocortisone 0.1 mg Tablet 0.2 mg PO DAILY ondansetron 4 mg Film 4 mg PO Q8H PRN (Reason: Nausea) sumatriptan succinate 100 mg Tablet 100 mg PO Q2H PRN (Reason: Migraine Headache) Rx Instructions: do not exceed 2 doses per 24 hrs alprazolam [Xanax] 0.5 mg Tablet 0.5 mg PO TID PRN (Reason: Anxiety) Rx Instructions: Filled 08/03/21 for 30 day supply. Emgality Pen 120 mg/mL Pen Injector 120 mg SUBCUT QMONTH Rx Instructions: Patient reports this as a new medication. lamotrigine 100 mg tablet 100 mg PO DAILY quetiapine 300 mg tablet 300 mg PO BEDTIME Qty: 30 0RF prazosin 1 mg capsule 1 mg PO BEDTIME Qty: 30 0RF <DAMIÁN Mahmood - Last Filed: 06/06/22 19:24>
--- OUTSIDE RECORDS SUMMARY | 2022-06-06 19:36 | XMS_ITS | Encounter Summary ---
:1995 Author Reason for Visit None recorded. Assessment and Plan 1. Migraine will fu with submitting her emgality an d see what the pharmacy sends back ? MRI, brain + brain stem, w/wo contras t 2. Anxiety medication stable 3. Bipolar disorder may need addition of Haldol for more se leann psychotic features 4. Borderline personality disorder medications adjusted at partial program 5. Acute otitis media will start on abx ? amoxicillin 875 mg tablet Discussion Note: None recorded.Patient educational handouts: No information available. Plan of Care Reminders Provider Appointments Follow up 15 06/10/2022 Irene Vaughan ba, PA 9:45AM Lab None recorded. ? ? Referral None recorded. ? ? Procedures None recorded. ? ? Surgeries None recorded. ? ? Imaging MRI, Brain + Brain Stem, 05/06/2022 [facility] W/wo Contrast (Scheduling Dept ) Medications Name Start Date ? ? alprazolam 0.5 mg tablet ? TAKE 1 TABLET BY MOUTH THREE TIMES A DAY NEEDED amoxicillin 875 mg tablet ? Take 1 tablet every 12 hours by oral route for 7 days . clonidine HCl 0.1 mg tablet ? Take 1 tablet twice a day by oral route. Emgality Pen 120 mg/mL subcutaneous pen injector ? INJECT 2 AUTOINJECTORS SUBCUTANEOUSLY LOADING DOSE , THEN ONE MONTHLY. eszopiclone 1 mg tablet ? TAKE 1 TABLET BY MOUTH EVERY DAY FOR 30 DAYS fludrocortisone 0.1 mg tablet ? TAKE 2 TABLETS BY MOUTH EVERY DAY IN THE EVENING lamotrigine 100 mg tablet ? TAKE 1 TABLET BY MOUTH EVERY DAY Lo Loestrin Fe 1 mg-10 mcg (24)/10 mcg (2) tablet ? meloxicam 15 mg tablet ? nitrofurantoin monohydrate/macrocrystals 100 mg capsul e ? Take 1 capsule every 12 hours by oral route for 7 day s. omeprazole 40 mg capsule,delayed release ? TAKE 1 CAPSULE BY MOUTH EVERY DAY ondansetron 4 mg disintegrating tablet ? TAKE 1 TABLET BY MOUTH EVERY 8 HOURS NEEDED FOR NA USEA ondansetron HCl 8 mg tablet ? TAKE 1 TABLET BY MOUTH TWICE A DAY NEEDED FOR 14 D AYS prazosin 1 mg capsule ? TAKE 1 CAPSULE BY MOUTH EVERYDAY AT BEDTIME quetiapine 300 mg tablet ? TAKE 1 TABLET BY MOUTH EVERY DAY quetiapine 50 mg tablet ? TAKE 1 TABLET BY MOUTH EVERY DAY DIRECTED sumatriptan 100 mg tablet ? TAKE 1 TABLET BY MOUTH EVERY 2 HOURS NEEDED FOR MIGRAINE NOT TO EXCEED 200MG/DAY Medications Administered None recorded. Vitals Height Weight BMI Blood Pressure 5 ft 6.5 in 119.4 lbs 19 kg/m2 110/70 mm[Hg] Results Lab Results None recorded. Allergies Code Code System Name Reaction Severity Onset NKDA ? ? ? Problems Name Status Onset Date Source ? Bipolar Disorder Active 09/04/2020 ? Borderline Personality Disorder Active 09/04/2020 ? Posttraumatic Stress Disorder Active 09/04/2020 ? Migraine Active 09/04/2020 ? Postural Orthostatic Tachycardia Syndrome Active 2020 ? Asthma Active 09/04/2020 ? Recurrent Miscarriage Active 09/04/2020 ? Anxiety Active 05/05/2021 ? Acute Sinusitis Active 10/06/2021 ? Menstrual Migraine Active 12/07/2021 ? Pain of Right Shoulder Joint Active 02/04/2022 ? Insomnia Active 02/23/2022 ? Nausea Active 05/02/2022 ? Acute Otitis Media Active 05/06/2022 ? Urine Looks Dark Active 06/03/2022 ? Procedures Date Name Performed by ? ? Extraction of [place] Tooth Information n ot available 05/06/2022 MRI, Brain + Brain Stem, W/wo [facility]ma Pill[facility] (Scheduling Dept) Contrast [address] [place], [place] [address] (Work Place) Vaccine List Vaccine Type COVID-19, mRNA, LNP-S, PF, 30 mcg/0.3 mL dose (PF Changs) 08/28/2020 09/18/2020 03/16/2021 Social History Tobacco Smoking Status Never Smoker Do you have difficulty walking or climbing N stairs? What type of diet are you following? REGULAR Are you able to walk? YESWOREST Are you able to care for yourself? Y Are you currently employed? Y What is your level of alcohol consumption? Moderate Which illicit or recreational drugs have you marijuana used? Have you been to an area known to be high risk N for COVID-19? Are you deaf or do you have serious difficulty N hearing? Are you passively exposed to smoke? Y Do you use your seat belt or car seat routinely? Y Do you or have you ever used any other forms of N tobacco or nicotine? Are there any guns present in your home? N Do you have difficulty dressing or bathing? N What is the highest grade or level of school you [id number] have completed or the highest degree you have received? How many children do you have? 0 Are you blind or do you have difficulty seeing? N Do you have smoke and carbon monoxide detectors Y in your home? In the 14 days before symptom onset, have you N had close contact with a person who is under investigation for COVID-19 while that person was ill? Do you have difficulty doing errands alone? N What was the date of your most recent tobacco 05/06/2022 screening? Do you use sunscreen routinely? Y Do you or have you ever used e-cigarettes or Never used elec tronic cigarettes vape? Do you use any illicit or recreational drugs? Y What is your exercise level? Occasional In the 14 days before symptom onset, have you N had close contact with a laboratory-confirmed COVID-19 while that case was ill? How many years have you smoked tobacco? 0 Do you or have you ever used smokeless tobacco? Never used s mokeless tobacco Are you sexually active? Y Do you have difficulty concentrating, Y remembering or making decisions? What is your level of caffeine consumption? Moderate Do you feel stressed (tense, restless, nervous, [id number] or anxious, or unable to sleep at night)? 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 Yes Past Encounters Encounter Date Diagnosis Provider 05/06/2022 Migraine; Anxiety; Bipolar Disorder; [facility] DAMIÁN Law: [address] [place] Borderline Personality Disorder; [facility] Acute [place]itis [place] [address], Ph. [phone] History of Present Illness Note: <div>3 mo f/u </div><div>
</div><div>anxiety: reports that anxiety medications combo is working well for her</div><div>reports decrease emotional response but not detrimental to her health</div><div>
</div><div>bipolar disorder: stable</div><div>did well in partial program </div><div>working with me to adjust her medications depending on her progress</div><div>
</div&gt ;<div>BPPD: stable</div><div>
</div><div>migraine: the patient reports that she is getting worsening migraines</div><div>centered around the right eye, with vision change </div><div>new presentation of her migraines </div>Review of Systems: ROS as noted in the HPI Review of Systems ? Comprehensive General Adult ROS Reported By: Patient Constitutional: Constitutional: no fever, no night sweats, no significant weight gain, no significant weight loss, no exercise intolerance, no chills, no malaise Cardiovascular: Cardiovascular: no chest carlos n, no arm pain on exertion, no shortness of breath when wal liya, no shortness of breath when lying down, no known heart murmur, no ankle swelling, palpitations Respiratory: Respiratory: no cough, no wh eezing, no shortness of breath, no coughing up blood, no sleep apnea Gastrointestinal: Gastrointestinal: no abdomin al pain, no nausea, no vomiting, no constipation, normal appetit e, no diarrhea, not vomiting blood, no dyspepsia, no GERD Psychiatric: Psych: depression, anxiety, hallucinations, suicidal thoughts, mood swings, agitation Physical Exam ? Brief Cardiology Exam Reported By: Patient Basic Cardio PE: General Appearance in NAD, n ormal general appearance, healthy weight, alert. HEENT: normal thyroid, no bruit, JVP < 6, Kussmaul's sign absent. Lungs: clear to auscultation. Cardio: s1 normal, s2 normal, no murmurs, no jiang ps, normal apical impulse. Abdomen: soft, non tender, non disten ded, normal bowel sounds, no bruit, no hepatomegaly, no splenomegal y, no renal mass. Extremities: no edema, pulses 2+. Neurologic: no vi sual disturbances, no weakness in the extremities, no confusion
--- OUTSIDE RECORDS SUMMARY | 2022-06-06 19:36 | XMS_ITS ---
:1995 External Reference #:[id number] Author Care Team Providers Name Role Phone ABIGAIL GOLDMAN NP Primary Care Provider [phone] GHASSAN KELLER Neurosurgeon [phone] URI OLIVEROS MD Neurologist [phone] Allergies Code Code System Name Reaction Severity Status Onset NKDA ? Medications Name Status Start Date Stop Date ? ? amitriptyline 10 mg tablet Active ? Not a vailable TK 1 T PO QHS amoxicillin 500 mg capsule Unknown ? Not a vailable amoxicillin 875 mg-potassium clavulanate 125 mg tablet Unknown ? Not available TAKE 1 TABLET BY MOUTH TWICE DAILY FOR 10 DAYS Anucort-HC 25 mg suppository Unknown ? Not available UNWRAP AND INSERT 1 SUPPOSITORY RECTALLY TWICE DAILY FOR 14 DAY S aripiprazole 5 mg tablet Unknown ? Not araseli ilable TAKE 1 TABLET BY MOUTH ONCE DAILY AT BEDTIME azithromycin 250 mg tablet Completed ? 09/02 citalopram 40 mg tablet Unknown ? Not avai lable clonidine HCl 0.1 mg tablet Unknown ? Not available doxycycline hyclate 100 mg tablet Unknown ? Not available take 1 tablet by mouth once daily for 14 days Flovent HFA 110 mcg/actuation aerosol inhaler Active ? Not available fludrocortisone 0.1 mg tablet Active ? No t available TAKE 2 TABLETS BY MOUTH EVERY DAY IN THE EVENING fluticasone propionate 50 mcg/actuation nasal spray,suspension C ompleted ? 06/15/2018 USE 2 SPRAYS IEN D gabapentin 100 mg capsule Active ? Not av ailable guanfacine 1 mg tablet Unknown ? Not avail able hydrocodone 5 mg-acetaminophen 500 mg tablet Unknown ? Not available hydroxyzine HCl 10 mg tablet Unknown ? Not available TAKE 1 TABLET BY MOUTH TWICE DAILY NEEDED Hypercare 20 % topical solution Unknown ? Not available ibuprofen 800 mg tablet Unknown ? Not avai lable TAKE 1 TABLET BY MOUTH EVERY 8 HOURS NEEDED indomethacin 25 mg capsule Unknown ? Not a vailable take 1 capsule by mouth every 8 hours if needed for pain for 3 days Intuniv ER 2 mg tablet,extended release Unknown ? Not available lithium carbonate ER 300 mg tablet,extended Completed ? 11/17/2017 release lithium carbonate ER 450 mg tablet,extended Active ? Not available release lorazepam 1 mg tablet Unknown ? Not availa ble lorazepam 2 mg tablet Unknown ? Not availa ble TAKE 1 TABLET BY MOUTH ONCE DAILY NEEDED FOR PANIC ATTACKS midodrine 2.5 mg tablet Completed ? 06/15/19 19 midodrine 5 mg tablet Completed ? 11/17/2017 lalnycec-qbjnxnzmy-xdduldazq 3.5 mg/mL-10,000 unit/mL-1 % ea r solution Unknown ? Not available INSTILL 2 DROPS INTO EACH EAR 3 TIMES A DAY FOR 7 DAYS nitrofurantoin monohydrate/macrocrystals 100 mg Active ? Not available capsule omeprazole 20 mg capsule,delayed release Active ? Not available TK ONE C PO BID omeprazole 40 mg capsule,delayed release Active ? Not available ondansetron 4 mg disintegrating tablet Completed ? 09/02/2016 ondansetron HCl 4 mg tablet Completed ? 06/05 TK 1 T PO Q 8 H PRN N oxcarbazepine 300 mg tablet Unknown ? Not available TAKE 1 TABLET BY MOUTH TWICE DAILY oxcarbazepine 600 mg tablet Unknown ? Not available take 1 tablet by mouth twice a day pantoprazole 40 mg tablet,delayed release Unknown ? Not available take 1 tablet by mouth once daily prazosin 1 mg capsule Unknown ? Not availa ble take 1 capsule by mouth at bedtime quetiapine 100 mg tablet Active ? Not araseli ilable quetiapine 200 mg tablet Active ? Not araseli ilable quetiapine 25 mg tablet Completed ? 11/18/19 18 quetiapine ER 200 mg tablet,extended release 24 hr Active 06/15/2018 Not available Take 200 mg every day by oral route at bedtime. tobramycin 0.3 % eye drops Unknown ? Not a vailable topiramate 25 mg tablet Active ? Not avai lable tramadol 50 mg tablet Unknown ? Not availa ble take 1 to 2 tablets by mouth every 6 hours if needed for pain trazodone 50 mg tablet Unknown ? Not avail able venlafaxine ER 150 mg capsule,extended release 24 hr Unknown ? Not available TAKE 1 CAPSULE BY MOUTH EVERY MORNING venlafaxine ER 37.5 mg capsule,extended release Unknown ? Not available 24 hr venlafaxine ER 75 mg capsule,extended release 24 hr Unknown ? Not available take 1 capsule by mouth every morning venlafaxine ER 75 mg tablet,extended release 24 Unknown ? Not available hr Ventolin HFA 90 mcg/actuation aerosol inhaler Active ? Not available Vitamin B-2 100 mg tablet Unknown ? Not av ailable 1 tablet By Mouth Daily Problems Name Status Onset Date Source ? Gastroesophageal Reflux Disease Active ? Encounter Syncope Active ? Encounter Dizziness and Giddiness Active ? Encounte r Procedures None recorded. Results Lab Results None recorded. Past Encounters None recorded. Social History Tobacco Smoking Status Never Smoker Vaccine List None recorded. Plan of Care Reminders Provider Appointments None recorded. ? ? Lab None recorded. ? ? Referral None recorded. ? ? Procedures None recorded. ? ? Surgeries None recorded. ? ? Imaging None recorded. ? ? Vitals 06/15/2018 10:15AM FOLLOW UP (60) Height Weight BMI Blood Pressure 167.6 cm 61.5 kg 21.9 kg/m2 116/73 mm[Hg] 11/17/2017 08:15AM FOLLOW UP (60) Height Weight BMI Blood Pressure 167.6 cm 61.2 kg 21.8 kg/m2 115/78 mm[Hg] 09/02/2016 12:00PM FOLLOW UP (60) Height Weight BMI Blood Pressure 167 cm 58 kg 20.8 kg/m2 128/86 mm[Hg] 01/06/2016 03:00PM FOLLOW UP (60) Height Weight BMI Blood Pressure 167 cm 56.6 kg 20.3 kg/m2 102/68 mm[Hg] 12/22/2014 10:30AM FOLLOW UP (60) Height Weight BMI Blood Pressure 168 cm 53 kg 18.8 kg/m2 100/60 mm[Hg] 08/29/2014 08:45AM FOLLOW UP (60) Height Weight BMI Blood Pressure 168 cm 51 kg 18.1 kg/m2 100/68 mm[Hg]
--- OUTSIDE RECORDS SUMMARY | 2022-06-06 19:36 | XMS_ITS ---
:1995 Author Care Team Providers Name Role Phone Gerson Irene Rhys Primary Care Provider Unavailable Allergies Code Code System Name Reaction Severity Status Onset NKDA ? Medications Name Status Start Date Stop Date ? ? alprazolam 0.5 mg tablet Active ? Not araseli ilable amitriptyline 10 mg tablet Completed ? 02/02 amoxicillin 875 mg tablet Active ? Not av ailable azithromycin 250 mg tablet Completed ? 02/02 TAKE 2 TABLETS BY MOUTH TODAY, THEN TAKE 1 TABLET DAILY FOR 4 D AYS baclofen 10 mg tablet Completed ? 05/06/2022 TAKE 1 TABLET BY MOUTH TWICE A DAY NEEDED FOR 14 DAYS clonidine HCl 0.1 mg tablet Active ? Not available Take 1 tablet twice a day by oral route. Emgality Pen 120 mg/mL subcutaneous pen injector Active ? Not available INJECT 2 AUTOINJECTORS SUBCUTANEOUSLY LOADING DOSE, THEN ONE MONTHLY. eszopiclone 1 mg tablet Active ? Not avai lable Take 1 tablet every day by oral route for 30 days. fludrocortisone 0.1 mg tablet Active ? No t available ketorolac 10 mg tablet Completed ? 2 TAKE 1 TABLET BY MOUTH EVERY 6 HOURS NEEDED FOR PAIN (MIGRAI NE). lamotrigine 100 mg tablet Active ? Not av ailable TAKE 1 TABLET BY MOUTH EVERY DAY lamotrigine 25 mg tablet Completed ? 022 TAKE 1 TABLET BY MOUTH THREE TIMES A DAY FOR 30 DAYS lithium carbonate ER 450 mg tablet,extended release Completed ? 05/05/2021 TAKE 1 TABLET (450 MG TOTAL) BY MOUTH DAILY. Lo Loestrin Fe 1 mg-10 mcg (24)/10 mcg (2) tablet Active ? Not available lorazepam 0.5 mg tablet Unknown ? Not avai lable lorazepam 1 mg tablet Completed ? 07/21/2021 meloxicam 15 mg tablet Active ? Not avail able nitrofurantoin monohydrate/macrocrystals 100 mg capsule Active ? Not available Take 1 capsule every 12 hours by oral route for 7 days. omeprazole 40 mg capsule,delayed release Active ? Not available ondansetron 4 mg disintegrating tablet Active ? Not available TAKE 1 TABLET BY MOUTH EVERY 8 HOURS NEEDED FOR NAUSEA ondansetron HCl 8 mg tablet Active ? Not available TAKE 1 TABLET BY MOUTH TWICE A DAY NEEDED FOR 14 DAYS prazosin 1 mg capsule Active ? Not availa ble TAKE 1 CAPSULE BY MOUTH EVERYDAY AT BEDTIME prednisone 20 mg tablet Completed ? 01/07/20 21 TAKE 3 TABLETS BY MOUTH FOR 3 DAYS TAKE 2 TABLETS FOR 2 DAYS TAKE 1 TABLET FOR 2 DAYS quetiapine 200 mg tablet Completed ? 022 quetiapine 300 mg tablet Active ? Not araseli ilable TAKE 1 TABLET BY MOUTH EVERY DAY quetiapine 50 mg tablet Active ? Not avai lable TAKE 1 TABLET BY MOUTH EVERY DAY DIRECTED sulfamethoxazole 800 mg-trimethoprim 160 mg tablet Completed ? 07/21/2021 TAKE 1 TABLET BY MOUTH EVERY 12 HOURS WITH MEALS FOR 7 DAYS sumatriptan 100 mg tablet Active ? Not av ailable TAKE 1 TABLET BY MOUTH EVERY 2 HOURS NEEDED FOR MIGRAINE NOT TO EXCEED 200MG/DAY sumatriptan 50 mg tablet Completed ? 022 PLEASE SEE ATTACHED FOR DETAILED DIRECTIONS Problems Name Status Onset Date Source ? [...] Name Performed by ? ? Extraction of [place] Tooth Information n ot available 12/18/2020 US, [facility]vaginal [facility] ([facility] Dept) [address], [place] [address] (Work Place) 12/18/2020 US, Pelvis, Complete [facility] (Scheduling Dept) [address] [place] [address] (Work Place) 02/04/2022 XR, Shoulder, 2 or More View [facility] ([facility] Dept) [address] [place] [address] (Work Place) 02/23/2022 Holter Monitor [facility] Central Scheduling [address] [place] [address] (Work Place) 05/06/2022 MRI, Brain + Brain Stem, W/wo [facility] (Scheduling Dept) Contrast [address], [place] [address] (Work Place) Results Lab Results None recorded. Past Encounters Encounter Date Diagnosis Provider 05/06/2022 Migraine; Anxiety; Bipolar Disorder; Koko Nieto PA: [address] [place] Borderline Personality Disorder; [place] [address], Ph. [phone] 02/23/2022 Insomnia; Bipolar Disorder; Postural Koko Nieto PA: [address] [place] Orthostatic [place] [address], Ph. [phone] 02/02/2022 Anxiety; Asthma; Migraine; Bipolar DAMIÁN Davies: [address] [place] Disorder; Borderline [place] Disorder [phone], Ph. 12/07/2021 Menstrual Migraine; Anxiety DAMIÁN Ellison: [address] [place] [address], Ph. [phone] 09/07/2021 Migraine; Borderline Personality DAMIÁN Ellison: [address] [place] Disorder; Anxiety; Asthma; Bipolar [place], [place] Disorder; Postural Orthostatic [phone], Ph. Tachycardia Syndrome; Posttraumatic Stress Disorder 07/21/2021 Bipolar Disorder; Anxiety; Postural JenniferDAMIÁN Nolasco: [address] [place] Orthostatic Tachycardia Syndrome; Panic [place] Attack; Chronic Interstitial Cystitis [phone], Ph. 05/05/2021 Bipolar Disorder; Borderline DAMIÁN Ellison: [address] [place] Personality Disorder; [place] [address], Ph. 02/23/2021 Bipolar Disorder; Pain in Left Foot DAMIÁN Herrera: [address] [place] [address], [place] [address], Ph. 12/09/2020 Asthma; Bipolar Disorder; Irene garcia PA: [address] [place] Gastroesophageal Reflux Disease; [place] Pelvis [phone], Ph. Social History Tobacco Smoking Status Never Smoker Vaccine List Vaccine Type COVID-19, mRNA, LNP-S, PF, 30 mcg/0.3 mL dose ([employer]) 08/28/2020 09/18/2020 03/16/2021 Plan of Care Reminders Provider Appointments None recorded. ? ? Lab None recorded. ? ? Referral None recorded. ? ? Procedures None recorded. ? ? Surgeries None recorded. ? ? Imaging None recorded. ? ? Vitals 05/06/2022 09:00AM FOLLOW UP 15 Height Weight BMI Blood Pressure 5 ft 6.5 in 119.4 lbs 19 kg/m2 110/70 mm[Hg] 02/02/2022 10:45AM FOLLOW UP 15 Height Blood Pressure 5 ft 6.5 in 128/72 mm[Hg] 09/07/2021 03:00PM Hospital F/U Height Weight BMI Blood Pressure 5 ft 6.5 in 118.1 lbs 18.8 kg/m2 130/90 mm[Hg] 07/21/2021 01:30PM SDV Height Weight BMI Blood Pressure 5 ft 6.5 in 130/80 mm[Hg] 12/09/2020 10:45AM FOLLOW UP 15 Height Weight BMI Blood Pressure 5 ft 6.5 in 127 lbs 20.2 kg/m2 126/80 mm[Hg] 11/04/2020 02:00PM FOLLOW UP 15 Height Weight BMI Blood Pressure 5 ft 6.5 in 127.9 lbs 20.3 kg/m2 128/78 mm[Hg] 09/04/2020 10:00AM NEW PATIENT 30 Height Weight BMI Blood Pressure 5 ft 6.5 in 133 lbs 21.1 kg/m2 130/80 mm[Hg]
[2022-06-06 19:54] LABS: MANUAL DIFF FLAG NO
[2022-06-06 19:56] LABS: Appearance Urine Cloudy; Basophils Absolute Auto 0.1 X10*3/uL (0.0-0.2); Basophils Percent Auto 0.8 % (0-2); Color Urine Dark Yellow; Eosinophils Absolute Auto 0.1 X10*3/uL (0.0-0.4); Eosinophils Percent Auto 0.8 % (0-4); Glucose Urine UA Negative (Negative); Hematocrit 38.8 % (37.0-47.0); Hemoglobin 12.3 g/dl (12.0-16.0); Imm Gran Abs Auto 0.01 X10*3/uL (0.00-0.03); Imm Gran Pct Auto 0.2 % (0.0-0.4); Leukocyte Esterase Urine Small (1+) (Negative); Lymphocytes Absolute Auto 2.3 X10*3/uL (1.2-4.9); Lymphocytes Percent Auto 34.5 % (20-40); Mean Corpuscular HGB Conc 31.7 g/dl (31.0-35.0); Mean Corpuscular Hemoglobin 27.8 pg (27.0-33.0); Mean Corpuscular Volume 87.8 fL (80.0-98.0); Mean Platelet Volume 9.5 fL (9.4-12.3); Monocytes Absolute Auto 0.6 X10*3/uL (0.1-1.2); Monocytes Percent Auto 9.1 % (2-11); Neutrophils Absolute Auto 3.6 x10*3/uL (2.0-8.3); Neutrophils Percent Auto 54.6 % (45-73); Nitrite Urine Positive (Negative); PH 6.5 (5.0-9.0); Platelet Count 288 X10*3/uL (160-400); Red Blood Count 4.42 X10*6/uL (4.20-5.50); Red Cell Distribution Width 13.9 % (11.0-16.0); Specific Gravity - Urine 1.015 (1.005-1.025); UMIC TRIGGER UACC YES; Urine Blood Negative (Negative); Urine Ketones Trace mg/dL (Negative); Urine Protein Negative (Neg-Trace); White Blood Count 6.6 X10*3/uL (4.8-10.8)
[2022-06-06 20:00] LABS: Prothrombin Time 11.2 SEC (10.0-13.1)
[2022-06-06 20:16] LABS: Alanine Aminotransferase 13 U/L (0-31); Albumin Level 4.6 g/dL (3.5-5.0); Alkaline Phosphatase 63 U/L (39-117); Anion Gap 10 (12-20); Aspartate Amino Transferase 14 U/L (5-31); Bilirubin Total 0.6 mg/dL (0.0-1.0); Blood Urea Nitrogen 9 mg/dL (9-16); Calcium 9.6 mg/dL (8.4-10.2); Carbon Dioxide 29 mmol/L (22-29); Chloride 107 mmol/L (96-108); Creatinine Clr Calc Pharmacy 81.4; Estimated Glomerular Filt Rate > 60; Glucose Random 113 mg/dL (60-115); Lipase 35 U/L (8-78); Magnesium 2.3 mg/dL (1.6-2.6); Potassium 3.7 mmol/L (3.3-5.1); Sodium 142 mmol/L (135-145); Total Protein 6.9 g/dL (6.5-8.0)
[2022-06-06 20:28] LABS: HCG Quantitative < 2 mIU/mL
[2022-06-06 20:32] LABS: Influenza A PCR NEGATIVE (Negative); Influenza B PCR NEGATIVE (Negative); Resp Syncy Virus RNA Qual PCR NEGATIVE (Negative); SARS COV2 PCR INHOUSE NEGATIVE (Negative)
[2022-06-06 20:58] LABS: Bacteria Urine 1+ (None Seen); Hyaline Casts Urine 0-2 /LPF (0-2); UACC Culture Trigger YES; WBC Urine 0-5 /HPF (0-5)
[2022-06-06 21:27] VITALS: BP 158/109; PULSE 67; RESP 14; TEMP 36.7; O2SAT 98
[2022-06-06] MEDS: dexAMETHasone 2 MG TABLET 10 MG PO (23:01)
[2022-06-06] MEDS: Metoclopramide HCl 10 MG/2 ML VIAL IVPUSH (23:01)
[2022-06-06] MEDS: diphenhydrAMINE HCL 50 MG/ML VIAL 25 MG IVPUSH (23:01)
[2022-06-06] MEDS: 0.9 % Sodium Chloride 1,000 ML 999 ML IV (23:01)
[2022-06-06] MEDS: Ketorolac Tromethamine 30 MG/ML VIAL IVPUSH (23:01)
[2022-06-06] MEDS: Phenazopyridine HCL 200 MG TABLET PO (23:02)
[2022-06-06 23:11] VITALS: BP 134/93; PULSE 78; RESP 12; TEMP 36.4; O2SAT 100
--- NOTE | 2022-06-07 00:24 | PC.NURSE ---
IV removed with no complications. Pt tolerated well. Discharge instructions reviewed with pt. Pt verbalizes understanding.
== END 2022-06-07 00:25 | disposition home or self-care (01) ==
PROVIDERS: Physician Assistant Medical; Emergency Provider Internal Medicine
DX: N39.0 Urinary tract infection, site not specified (principal); G43.909 Migraine, unspecified, not intractable, without status migrainosus; Z20.828 Contact with and (suspected) exposure to other viral communicable diseases; F12.90 Cannabis use, unspecified, uncomplicated
CPT/HCPCS: 0241U; 36415; 74176; 80053; 81001; 81003; 83690; 83735; 84702; 85025; 85610; 87086; 87088; 96361; 96374; 96375; 99284; 99285; J1200; J1885; J2765; J8540

== ENCOUNTER 2022-06-10 14:03 | Outpatient (REF) | payer OTHER, SELFPAY ==
[2022-06-10 14:17] LABS: Appearance Urine Turbid; Color Urine Yellow; Glucose Urine UA Negative (Negative); Leukocyte Esterase Urine Small (1+) (Negative); Nitrite Urine Negative (Negative); Specific Gravity - Urine 1.015 (1.005-1.025); UMIC TRIGGER UACC YES; Urine Blood Negative (Negative); Urine Ketones Negative (Negative); Urine Protein Negative (Neg-Trace)
[2022-06-10 14:31] LABS: Bacteria Urine 3+ (None Seen); Hyaline Casts Urine 0-2 /LPF (0-2); RBC Urine 0-2 /HPF (0-2); UACC Culture Trigger YES; WBC Urine 0-5 /HPF (0-5)
== END 2022-06-10 14:04 | disposition home or self-care (01) ==
LOC: HO.LNP 14:03
PROVIDERS: Visit Provider Physician Assistant
DX: N10 Acute pyelonephritis (principal)
CPT/HCPCS: 81001; 87086

== ENCOUNTER 2022-06-22 14:01 | Outpatient (REF) | payer OTHER, SELFPAY ==
[2022-06-22 18:35] LABS: Alanine Aminotransferase 10 U/L (0-31); Albumin Level 4.3 g/dL (3.5-5.0); Alkaline Phosphatase 55 U/L (39-117); Anion Gap 12 (12-20); Aspartate Amino Transferase 18 U/L (5-31); Bilirubin Total 0.5 mg/dL (0.0-1.0); Blood Urea Nitrogen 8 mg/dL (9-16); Calcium 9.2 mg/dL (8.4-10.2); Carbon Dioxide 27 mmol/L (22-29); Chloride 107 mmol/L (96-108); Estimated Glomerular Filt Rate > 60; Glucose Random 125 mg/dL (60-115); Potassium 4.3 mmol/L (3.3-5.1); Sodium 142 mmol/L (135-145); Total Protein 6.7 g/dL (6.5-8.0)
[2022-06-23 05:16] LABS: Estimated Average Glucose 100 mg/dL; Hemoglobin A1c % 5.1 %
== END 2022-06-22 14:02 | disposition home or self-care (01) ==
LOC: HO.MANLDS 14:01
PROVIDERS: Visit Provider Physician Assistant
DX: N10 Acute pyelonephritis (principal)
CPT/HCPCS: 36415; 80053; 83036

== ENCOUNTER 2022-07-11 12:15 | Outpatient (REF) | payer OTHER, SELFPAY ==
--- NOTE | ~2022-07-11 | US_ITS ---
EXAMINATION: US RETROPERITONEAL LIMITED (RENAL ONLY) CLINICAL INFORMATION: Renal stones. COMPARISON: CT abdomen and pelvis without contrast 06/06/2022. TECHNIQUE: Real-time imaging of the kidneys. FINDINGS: RIGHT KIDNEY: 9.6 x 5.4 x 4.3 cm (SAG x AP x TRV). The kidney is normal in size, contour, and echogenicity. Renal cortical thickness is normal. No focal parenchymal lesions or hydronephrosis. 2 echogenic foci noted in the lower pole measuring 3 and 4 mm in size consistent with nonobstructing calculi. LEFT KIDNEY: 10.4 x 5.4 x 5.0 cm (SAG x AP x TRV). The kidney is normal in size, contour, and echogenicity. Renal cortical thickness is normal. No focal parenchymal lesions or hydronephrosis. A single 5 mm mid pole echogenic focus consistent with a nonobstructing calculus is present. US/US renal BI IMPRESSION: Bilateral nonobstructing renal calculi. Similar findings were seen on the recent CT scan.
== END 2022-07-11 12:16 | disposition home or self-care (01) ==
LOC: HO.US 12:15
PROVIDERS: Visit Provider Physician Assistant
DX: N20.0 Calculus of kidney (principal)
CPT/HCPCS: 76775

== ENCOUNTER 2022-09-30 08:05 | Outpatient (REF) | payer OTHER, SELFPAY ==
--- NOTE | ~2022-09-30 | CT_ITS ---
EXAMINATION: CT ABDOMEN AND PELVIS WITHOUT CONTRAST CLINICAL INFORMATION: Kidney stone COMPARISON: Previous CT of the abdomen and pelvis June 2022 and renal ultrasound July 2022 TECHNIQUE: Multidetector volumetric imaging was performed from the superior aspect of the liver through the pubic symphysis. Sagittal and coronal reformatted images were obtained on the technologist's workstation. This CT examination was performed using dose optimization techniques as appropriate, variously including the following: *Automated exposure control *Adjustment of mA and/or kV according to patient size (this includes techniques or standardized protocols for targeted exams where dose is matched to indication/reason for exam; i.e. extremities or head) *Use of iterative reconstruction technique DLP: 257 mGy-cm FINDINGS: LUNG BASES: The visualized lung bases are unremarkable. LIVER, GALLBLADDER, AND BILIARY TREE: The liver is normal in size, shape, and attenuation. No focal hepatic lesion or biliary ductal dilatation is present. The gallbladder is unremarkable with no evidence of radiopaque gallstones, gallbladder wall thickening, or obvious pericholecystic inflammatory changes. PANCREAS: Unremarkable. SPLEEN: Unremarkable. ADRENAL GLANDS: Unremarkable. KIDNEYS AND URETERS: There are small bilateral renal stones. There is a 1 mm stone in the upper pole of the right kidney. There are 2 stones in the lower pole of the left kidney measuring 1 and 3 mm. No hydronephrosis. No ureteral dilatation or ureteral stone. BLADDER: Unremarkable. GASTROINTESTINAL TRACT: Stool throughout the colon questionable for constipation. The small and large bowel are otherwise unremarkable. The appendix is unremarkable. ABDOMINAL WALL: No significant hernia is appreciated. LYMPH NODES: Normal. VASCULAR: Unremarkable. PELVIC VISCERA: Unremarkable. OSSEOUS STRUCTURES: Unremarkable. CT/CT abdomen pelvis wo IV con IMPRESSION: Small bilateral renal stones. Fleischner guidelines were followed.
== END 2022-09-30 08:06 | disposition home or self-care (01) ==
LOC: HO.CT 08:05
PROVIDERS: Visit Provider Physician Assistant
DX: N20.0 Calculus of kidney (principal)
CPT/HCPCS: 74176

== ENCOUNTER 2024-08-09 14:06 | Outpatient (REF) | payer BC, SELFPAY ==
[2024-08-09 14:48] LABS: Amphetamine Screen Urine Not Detected (Not Detect); Barbiturates, Urine Not Detected (Not Detect); Benzodiazepines Screen Urine POSITIVE (Not Detect); Buprenorphine Scr Not Detected (Not Detect); Cannabinoid Screen Urine POSITIVE (Not Detect); Cocaine Screen Urine Not Detected (Not Detect); Fentanyl, urine Not Detected (Not Detect); Methadone Screen, Urine Not Detected (Not Detect); Opiate Screen Urine Not Detected (Not Detect); Oxycodone Screen Urine Not Detected (Not Detect); Phencyclidine Screen Urine Not Detected (Not Detect)
--- OUTSIDE RECORDS SUMMARY | 2024-08-09 15:47 | XMS_ITS | Data Portability ---
Author Organization [facility] Home Service Address [address] [place] [address] Assessment Encounter Date Assessment Date Assessment LastModified by Organization Details LastModified Time 02/23/2022 02/23/2022 Patient agreed and verbally consents to this audio and video Telehealth appt via a secure platform [email or web address] Not available 02/23/2022 14:03:15 Plan of Treatment Reminders Order Date Submit Date Provider Last Modified By Organization Details Last Modified Time Details Appointments None recorded. Lab urinalysis complete, reflex culture 2022 023 [facility], [address] [place] [address], [address], 3 10:16:40 CMP, serum or plasma 2022 023 [facility], [address] [place] [address], [address], 3 10:10:22 hemoglobin A1c, QN, blood 2022 023 [facility], [address] [place] [address], [address], 3 10:10:23 osmolality , urine 2022 023 [facility], [address] [place] [address], [address], 3 10:10:22 Referral None recorded. Procedures None recorded. Surgeries None recorded. Imaging CT, abdomen + pelvis, w/o contrast 2022 023 [email or web address] 10 [facility], [address] [facility], [place], [address], 3 08:42:17 US, pelvis, limited 2022 023 [email or web address] [facility], [address] [facility] [facility], [place], [address], 3 08:53:27 MRI, brain + brain stem, w/wo contrast 2021 022 [email or web address] Not available 2 10:09:12 holter monitor - 3 day holter; increased palpitatio ns and tachycardi a 2021 022 [email or web address] 10 [facility], [address] [facility], [place], [address], 2 08:09:09 Medication Orders lamotrigin e 25 mg tablet 2022 023 [facility], [address] [place], [address], 3 12:10:57 tamsulosin 0.4 mg capsule 2022 023 [facility], [address] [place], [address], 3 12:33:54 docusate sodium 100 mg capsule 2022 023 [facility], [address] [place] [address], [address], 3 10:01:28 ciprofloxa giovanna 500 mg tablet 2022 023 [facility], [address] [place], [address], 3 09:56:04 prednisone 20 mg tablet 2022 023 [facility], [address] [place], [address], 3 09:58:24 amoxicilli n 875 mg tablet 2021 022 [facility], [address] [place] [address], [address], 09:27:15 eszopiclon e 1 mg tablet 2021 022 [facility]044[facility], [address] [place], [address], 13:55:08 lamotrigin e 25 mg tablet 2021 022 [email or web address] [facility] [address] [place] [address], [address], 09:00:42 Patient TargetsNo targets recorded. Patient Instructions Encounter Date Encounter Id Patient Instructions Last Modified By Organization Details Last Modified Time 06/10/2022 [id number] pulse oximetry* [email or web address] Not available 06/10/2022 09:51:50 Reason for Referral None Reported. Results Created Date Observation Date Name Description Value Unit Range Abnormal Flag Note LastModifiedBy Organization Detail LastModifiedTime 06/10/19 23 06/10/2022 pulse oxime try* Result 98 Not Available [facility] [address] [facility] [address], [place], [address], 06/10/2022 09:04:00 07/12/19 23 07/11/2022 , sam chawla No observ ation record ed. [email or web address] [facility] (Medical Records) [address] [place] [address], [address], 07/13/2022 16:10:39 10/06/19 23 09/30/2022 CT, abdom en + pelvi s, w/o contr ast No observ ation record ed. [email or web address] [facility] (Medical Records) [address] [place], [address], 10/07/2022 12:14:25 Result Notes None recorded. Problems Name Problem SNOMED Code Status Onset Date Resolution Date Notes Provider Name and Address Organization Details Recorded Time Asthma 001019446 Active 2020 DAMIÁN OZUNA [address] [place], [address], [facility] 09:58:09 Migraine 33104539 Active 2020 due to past concussi ons, reports 8 DAMIÁN OZUNA [address] [place] [address], [address], [facility] 1 10:01:15 Bipolar disorder 65937204 Active 2020 DAMIÁN OZUNA [address] [place], [address], [facility] 10:11:01 Borderli ne personal ity disorder 12187360 Active 2020 DAMIÁN OZUNA [address] [place] [address], [address], [facility] 10:11:28 Postural orthosta tic tachycar wali syndrome 005322099 Active 2020 DAMIÁN OZUNA [address] [place] [address], [address], [facility] 10:11:53 Posttrau matic stress disorder 88009824 Active 2020 DAMIÁN OZUNA [address] [place], [address], [facility] 1 10:12:54 Recurren t miscarri age 114754269 Active 2020 DAMIÁN OZUNA [address] [place], [address], [facility] 12:28:53 Anxiety 25752803 Active 2020 DAMIÁN OZUNA [address] [place], [address], [facility] 1 09:45:49 Acute sinusiti s 74830122 Active 2021 DAMIÁN OZUNA [address] [place] [address], [address], [facility] 2 14:49:13 Menstrua l migraine 82896992 Active 2021 DAMIÁN OZUNA [address] [place] [address], [address], [facility] 2 11:53:17 Pain of right shoulder joint 45713932594 214455 Active 2021 DAMIÁN OZUNA [address] [place] [address], [address], [facility] 2 16:51:03 Insomnia 195430772 Active 2021 DAMIÁN OZUNA [address] [place] [address], [address], [facility] 2 13:52:50 Nausea 474158968 Active 2021 DAMIÁN OZUNA [address] [place] [address], [address], [facility] 2 14:18:27 Acute otitis media 6535650 Active 2021 DAMIÁN OZUNA [address] [place] [address], [address], [facility] 2 09:26:46 Urine looks dark 72867688 Active 2021 DAMIÁN OZUNA [address] [place] [address], [address], [facility] 2 12:39:36 Acute urinary tract infectio n 294627015 Active 2022 DAMIÁN OZUNA [address] [place] [address], [address], [facility] 3 09:51:32 Constipa tion 83411703 Active 2022 DAMIÁN OZUNA [address] [place], [address], [facility] 3 09:53:44 Kidney stone 84043480 Active 2022 DAMIÁN OZUNA [address] [place], [address], [facility] 3 13:21:32 Candidia sis of vagina 78802551 Active 2022 DAMIÁN OZUNA [address] [place], [address], [facility] 3 13:22:22 Dermoid cyst of head 221925517 Active 2022 DAMIÁN OZUNA [address] [place], [address], [facility] 3 12:21:33 Problem Notes None recorded. Procedures Surgical History Date Name Laterality Status Provider Name and Address Organization Details Recorded Time extraction of wisdom tooth completed DAMIÁN OZUNA [address] [place], [address], [facility] 09/04/2020 10:15:51 Imaging Results Imaging Date Name Status LastModified by Organiz ation Details LastModified Time 07/11/2022 US, kidney completed [email or web address] [facility] (Medical Records) [address] [place] [address], [address], 07/13/2022 16:10:39 09/30/2022 CT, abdomen + pelvis, w/o contrast completed [email or web address] [place] [address] (Medical Records) [address] [place] [address], [address], 10/07/2022 12:14:25 Procedure Notes None recorded. Medical Equipment None Reported. Allergies No known drug allergies Medications Name Sig Start Date Stop Date Status Note LastModified by Organization Details LastModified Time clonidine HCl 0.1 mg tablet Take 1 tablet twice a day by oral route. active Not Available Not Available No t Available quetiapine 300 mg tablet TAKE 1 TABLET BY MOUTH EVERY DAY 2024 active Not Available Not Available Not Avai lable azithromyci n 250 mg tablet TAKE 2 TABLETS (500 MG) BY ORAL ROUTE ONCE DAILY FOR 1 DAY THEN 1 TABLET (250 MG) BY ORAL ROUTE ONCE DAILY FOR 4 DAYS active Not Available Not Available No t Available sumatriptan 100 mg tablet TAKE 1 TABLET BY MOUTH EVERY 2 HOURS NEEDED FOR MIGRAINE. NOT TO EXCEED 200MG PER DAY. active Not Available Not Available No t Available prazosin 1 mg capsule TAKE 1 CAPSULE BY MOUTH EVERYDAY AT BEDTIME active Not Available Not Available No t Available ondansetron HCl 8 mg tablet TAKE 1 TABLET BY MOUTH TWICE A DAY NEEDED FOR 14 DAYS active Not Available Not Available No t Available meloxicam 15 mg tablet TAKE 1 TABLET BY MOUTH EVERY DAY NEEDED WITH FOOD needs appt for further refills. call office 2023 active Not Available Not Available Not Avai lable phenazopyri dine 200 mg tablet TAKE 1 TABLET BY MOUTH THREE TIMES A DAY FOR 2 DAYS 06/10 completed Not Available Not Available Not Available prednisone 20 mg tablet Take 1 tablet every day by oral route for 10 days. active Not Available Not Available No t Available quetiapine 200 mg tablet TAKE 1 TABLET BY MOUTH EVERY DAY 05/06 completed Not Available Not Available Not Available Diflucan 150 mg tablet Take 1 tablet by oral route. 2022 active Not Available Not Available Not Avai lable sumatriptan 50 mg tablet PLEASE SEE ATTACHED FOR DETAILED DIRECTION S 05/06 completed Not Available Not Available Not Available ciprofloxac in 500 mg tablet Take 1 tablet every 12 hours by oral route for 7 days. active Not Available Not Available No t Available sulfamethox azole 800 mg-trimetho prim 160 mg tablet TAKE 1 TABLET BY MOUTH EVERY 12 HOURS WITH MEALS FOR 7 DAYS 07/21 completed Not Available Not Available Not Available omeprazole 40 mg capsule,del ayed release TAKE 1 CAPSULE BY MOUTH EVERY DAY MAKE OV 2024 active Not Available Not Available Not Avai lable lithium carbonate ER 450 mg tablet,exte nded release TAKE 1 TABLET (450 MG TOTAL) BY MOUTH DAILY. 05/05 completed Not Available Not Available Not Available lamotrigine 25 mg tablet Take 2 tablets every day by oral route for 90 days. active Not Available Not Available No t Available ketorolac 10 mg tablet TAKE 1 TABLET BY MOUTH EVERY 6 HOURS NEEDED FOR PAIN (MIGRAINE ). 09/07 completed Not Available Not Available Not Available alprazolam 0.5 mg tablet TAKE 1 TABLET BY MOUTH THREE TIMES A DAY NEEDED needs appt for further refills. call office 2023 active Not Available Not Available Not Avai lable amoxicillin 875 mg tablet Take 1 tablet every 12 hours by oral route for 7 days. active Not Available Not Available No t Available lorazepam 0.5 mg tablet TAKE 1 TABLET BY MOUTH TWICE A DAY active Not Available Not Available No t Available tamsulosin 0.4 mg capsule TAKE 1 CAPSULE BY MOUTH EVERY DAY active Not Available Not Available No t Available amitriptyli ne 10 mg tablet TAKE 3 TABLETS BY MOUTH AT BEDTIME 02/02 completed Not Available Not Available Not Available baclofen 10 mg tablet TAKE 1 TABLET BY MOUTH TWICE A DAY NEEDED FOR 14 DAYS 05/06 completed Not Available Not Available Not Available docusate sodium 100 mg capsule TAKE 1 CAPSULE BY MOUTH EVERY DAY FOR 14 DAYS active Not Available Not Available No t Available lorazepam 1 mg tablet Take 1 tablet twice a day by oral route for 30 days. 07/21 completed Not Available Not Available Not Available albuterol sulfate HFA 90 mcg/actuati on aerosol inhaler Inhale 2 puffs every 4 hours by inhalatio n route as needed for 30 days. active Not Available Not Available No t Available ondansetron 4 mg disintegrat ing tablet TAKE 1 TABLET BY MOUTH EVERY 8 HOURS NEEDED FOR NAUSEA active Not Available Not Available No t Available fludrocorti sone 0.1 mg tablet TAKE 2 TABLETS BY MOUTH DAILY. active Not Available Not Available No t Available lamotrigine 100 mg tablet TAKE 1 TABLET BY MOUTH EVERY DAY 2023 active Not Available Not Available Not Avai lable nitrofurant oin monohydrate /macrocryst als 100 mg capsule TAKE 1 CAPSULE BY MOUTH EVERY 12 HOURS FOR 7 DAYS active Not Available Not Available No t Available eszopiclone 1 mg tablet TAKE 1 TABLET BY MOUTH EVERY DAY FOR 30 DAYS active Not Available Not Available No t Available quetiapine 50 mg tablet TAKE 1 TABLET BY MOUTH EVERY DAY DIRECTED active Not Available Not Available No t Available butalbital- acetaminoph en-caffeine 50 mg-300 mg-40 mg capsule TAKE 1 CAP ORALLY EVERY 6 HOURS NEEDED FOR HEADACHE active Not Available Not Available No t Available Lo Loestrin Fe 1 mg-10 mcg (24)/10 mcg (2) tablet TAKE 1 TABLET BY MOUTH EVERY DAY active Not Available Not Available No t Available Emgality Pen 120 mg/mL subcutaneou s pen injector INJECT 2 AUTOINJEC TORS SUBCUTANE OUSLY LOADING DOSE, THEN ONE MONTHLY. active Not Available Not Available No t Available Vitals Date Recorded Body height Oxygen saturation Oxygen saturation in Arterial blood by Pulse oximetry Heart rate Systolic blood pressure Diastolic blood pressure Provider Name and Address Organization Details Last Updated DateTime 2 168.91 cm 99 % 99 % 75 /min 128 mm[Hg] 72 mm[Hg] Jeana Calderon [facility] 2 10:27:06 Date Recorded Body height Body mass index (BMI) Body weight Heart rate Oxygen saturation Oxygen saturation in Arterial blood by Pulse oximetry Systolic blood pressure Diastolic blood pressure Provider Name and Address Organization Details Last Updated DateTime 2 168.91 cm 19 kg/m2 92960.9 3 g 74 /min 99 % 99 % 110 mm[Hg] 70 mm[Hg] Yoli Quiñones [facility] 2 09:04:10 Date Recorded Body height Body mass index (BMI) Body weight Heart rate Oxygen saturation Oxygen saturation in Arterial blood by Pulse oximetry Systolic blood pressure Diastolic blood pressure Provider Name and Address Organization Details Last Updated DateTime 3 168.91 cm 19.4 kg/m2 20098.5 5 g 85 /min 98 % 98 % 126 mm[Hg] 60 mm[Hg] Keara Moraes [facility] 3 09:31:34 Social History Question Answer Notes LastModified by Organizat ion Details LastModified Time Tobacco Smoking Status Never Smoker Keri tolentino [facility] 09/04/2020 09:51:13 What Is Your Level Of Alcohol Consumption? Moderate Information not available 05/27/2022 Are You Blind Or Do You Have Difficulty Seeing? No Information not available 05/27/2022 What Is Your Level Of Caffeine Consumption? Moderate Information not available 05/27/2022 In The 14 Days Before Symptom Onset, Have You Had Close Contact With A Laboratory-confir med COVID-19 While That Case Was Ill? No Information not available 06/10/2022 In The 14 Days Before Symptom Onset, Have You Had Close Contact With A Person Who Is Under Investigation For COVID-19 While That Person Was Ill? No Information not available 06/10/2022 Have You Been To An Area Known To Be High Risk For COVID-19? No Information not available 06/10/2022 Are You Currently Employed? Yes Information not available 05/27/2022 Are You Deaf Or Do You Have Serious Difficulty Hearing? No Information not available 05/27/2022 What Type Of Diet Are You Following? REGULAR Information not available 05/27/2022 Which Illicit Or Recreational Drugs Have You Used? Marijuana Information not available 05/27/2022 Do You Or Have You Ever Used E-cigarettes Or Vape? Never Used Electronic Cigarettes Information not available 06/10/2022 What Is The Highest Grade Or Level Of School You Have Completed Or The Highest Degree You Have Received? 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 No Information not available 05/27/2022 What Was The Date Of Your Most Recent Tobacco Screening? 06/10/2022 [email or web address] Information not available 06/10/2022 How Many Children Do You Have? 0 Information not available 05/27/2022 Do You Use Your Seat Belt Or Car Seat Routinely? Yes Information not available 05/27/2022 Are You Sexually Active? Yes Information not available 05/27/2022 Do You Have Smoke And Carbon Monoxide Detectors In Your Home? Yes Information not available 05/27/2022 Are You Passively Exposed To Smoke? Yes Information no t available 05/27/2022 Do You Or Have You Ever Used Smokeless Tobacco? Never Used Smokeless Tobacco Information not available 06/10/2022 How Much Tobacco Do You Smoke? No Information not available 09/04/2020 Do You Feel Stressed (tense, Restless, Nervous, Or Anxious, Or Unable To Sleep At Night)? [id number] Information not available 05/27/2022 Do You Use Any Illicit Or Recreational Drugs? Yes Information not available 06/10/2022 Do You Use Sunscreen Routinely? Yes Information not available 05/27/2022 How Many Years Have You Smoked Tobacco? 0 Information not available 09/04/2020 Do You Or Have You Ever Used Any Other Forms Of Tobacco Or Nicotine? No Information not available 06/10/2022 Sex: Female Functional Status Question Answer Note LastModified by Organizat ion Details LastModified Time Do you have difficulty walking or climbing stairs? No Information not available 05/27/2022 Are you able to walk? YESWOREST Information not available 05/27/2022 Do you have difficulty doing errands alone? No Information not available 05/27/2022 Are you able to care for yourself? Yes Information not available 05/27/2022 Do you have difficulty dressing or bathing? No Information not available 05/27/2022 What is your exercise level? Occasional Information not available 05/27/2022 Mental Status Question Answer Note LastModified by Organization D etails LastModified Time Do you have difficulty concentrating, remembering or making decisions? Yes Information no t available 05/27/2022 Family History Relationship Description Onset Age of this Age Resolved Age Notes LastModified by Organization Details LastModified Time Maternal Grandmother Malignant tumor of colon [email or web address] Not available 2020 10:14:41 Medical History No medical history recorded. Gynecological HistoryNo gynecological history recorded. Obstetrics History GPAL:G 0 P 0 0 0 0 Immunizations Vaccine Type Date Status Note Provider Nam e and Address Organization Details Recorded Time COVID-19, mRNA, LNP-S, PF, 30 mcg/0.3 mL dose 03/16/2021 completed Eulalia Lindsey [facility] 04/13/2021 10:54:53 COVID-19, mRNA, LNP-S, PF, 30 mcg/0.3 mL dose 08/28/2020 completed DAMIÁN OZUNA [address] [place], [address], [facility] 09/04/2020 10:18:32 COVID-19, mRNA, LNP-S, PF, 30 mcg/0.3 mL dose 09/18/2020 completed Keara tolentino [facility] 11/04/2020 14:01:18 Past Encounters Encounter ID Performer Location Encounter Start Date Encounter Closed Date Diagnosis/Indication Diagnosis SNOMED-CT Code Diagnosis ICD10 Code Diagnosis Note [id number] DAMIÁN OZUNA 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 Anxiety 50882675 F41.9 sees richy, would like to change, will not refill her medication s unless she is seen cost $200 per appt looking into getting new matt lockhart calling insurance and getting a list Bipolar disorder 2820104 4 F31.0 stable on medication Borderline personality disorder 04511719 F60.3 stable on medication Asthma 552158413 J45.90 9 exercise induced stable currently had reaction to pro-air if she does end up needing inhaler will discuss options that may work better Migraine 76060176 G43.90 9 severe migraines, uses amitrp and sees neuro for fu Postural o rthostatic tachycardia syndrome 458412075 I95.1 sees cardiology for fu Posttrauma tic stress disorder 83134165 F43.10 will monitor her symptoms the patient can fu with me with psych list Recurrent miscarriage 10 8372985 N96 the patient has hx of recurrent miscarriag es, would like to see new OB gave her list to look through has fu with me to discuss [id number] DAMIÁN OZUNA [facility] [address] [facility] [address] 11/04/2020 13:53:46 11/04/2020 16:24:43 Bipolar disorder 45006663 F31.0 stable on medication , will discuss what to do in the case she becomes Posttrauma tic stress disorder 87317695 F43.12 will monitor her symptoms the patient can fu with me with psych list if she would like as well Recurrent miscarriage 10 9113891 N96 the patient has hx of recurrent miscarriag es if another miscarriag e, discussed fu with reproducti ve services Migraine 47057190 G43.90 9 discussed migraine medication s that may better suit her such as maintenanc e medication s like verapamil, propranolo l, topimax which may work better for her since increased dose of ami dose not seem to help [id number] DAMIÁN OZUNA [facility] Internal [facility] [address] [facility] [address] 12/09/2020 10:24:21 12/09/2020 11:19:20 Asthma 844584068 J45.909 exercise induced stable currently had reaction to pro-air if she does end up needing inhaler will discuss options that may work better Bipolar disorder 0589013 4 F31.0 stable on medication Gastroesop hageal reflux disease 416620613 K21.9 needs refill Pain in pelvis 97752607 R10.2 left side, will exclude and fu with US pelvis [id number] DAMIÁN OZUNA [facility] Internal [facility] [address] [facility] [address] 02/23/2021 09:02:26 02/23/2021 16:48:31 Bipolar disorder 69960247 F31.0 stable on medication Pain in left foot 733075 3492 21144 M79.672 most likely nerve injuryreco vering will fu if no full improvemen t [id number] DAMIÁN OZUNA [facility] Internal Medicine [address] [facility] [address] 05/05/2021 08:10:57 05/07/2021 16:27:25 Bipolar disorder 53599767 F31.0 will increase her seroquel dose to 250 mg and see how she does Borderline personality disorder F60.3 medication s adjusted Anxiety 53995628 F41.1 will increase ativan dose to 1 mg twice per day [id number] DAMIÁN OZUNA [facility] Internal Medicine [address] [facility] [address] [address] 07/21/2021 13:31:49 07/21/2021 15:32:05 Bipolar disorder 07016635 F31.0 will set up for partial programord er already filled out Anxiety 30955543 F41.1 medication adjustment as described in note Postural o rthostatic tachycardia syndrome 795826403 I95.1 hold on adjustment of medication until we stabalize her medication Panic attack 537612857 F 41.0 adjustment of her medication Chronic in terstitial cystitis 026186451 N30.10 suggested diet changes that could be beneficial and aloe supplement s that also work well for symptoms [id number] DAMIÁN OZUNA [facility] Internal Medicine [address] [facility], [place] [address] 09/07/2021 14:56:22 09/07/2021 16:12:20 Migraine 44958302 G43.009 will fu with submitting her emgality and see what the pharmacy sends back Borderline personality disorder 11292670 F60.3 medication s adjusted at partial program Anxiety 32465142 F41.1 medication adjustment as described in note Asthma 321264099 J45.20 exercise induced stable currently had reaction to pro-air if she does end up needing inhaler will discuss options that may work better Bipolar disorder 8481327 4 F31.0 stable currentlyw ill be adjusting medication did intake today for [facility] , expected first session is in 4 to 6 weeks Postural o rthostatic tachycardia syndrome 749245579 I95.1 hold on adjustment of medication until we stabilize her medication could be beneficial for her to use clonidine Posttrauma tic stress disorder [id number] F43.12 will monitor her symptoms the patient can fu with me with psych list if she would like as well [id number] DAMIÁN OZUNA [facility] Internal Medicine [address] [facility], [place] [address] 12/07/2021 09:59:05 12/07/2021 13:38:27 Menstrual migraine 57871659 G43.831 will trial one month course of lo lo estrin, if not effective or causes too many side effects will discuss next treatment option Anxiety 00882007 F41.1 medication stable [id number] DAMIÁN OZUNA [facility] Internal Medicine [address] [facility] [address] [place] [address] 02/02/2022 10:18:59 02/02/2022 11:24:10 Anxiety 00010110 F41.1 medication stable Asthma 522232708 J45.20 stable Migraine 63775541 G43.00 9 will fu with submitting her emgality and see what the pharmacy sends back Bipolar disorder 2396074 4 F31.0 will adjust dose of lamictal Borderline personality disorder 73395814 F60.3 medication s adjusted at partial program [id number] DAMIÁN OZUNA [facility] Internal Medicine [address] [facility] [address] [place], [address] [facility] [place] [address] 02/23/2022 11:22:50 02/25/2022 12:53:21 Insomnia 004331069 G47.09 will add lunesta to her medication s for the sleepshe is averaging one hour of sleep per day with small naps in-between Bipolar disorder 5419614 4 F31.2 may need addition of Haldol for more severe psychotic features Postural o rthostatic tachycardia syndrome [id number] I95.1 will schedule patient for a 3 day holter [id number] DAMIÁN OZUNA [facility] Internal Medicine [address] [facility] [address] [place] [address] 05/06/2022 08:53:41 05/06/2022 10:00:19 Migraine 42250525 G43.009 will fu with submitting her emgality and see what the pharmacy sends back Anxiety 37274875 F41.1 medication stable Bipolar disorder 7725890 4 F31.2 may need addition of Haldol for more severe psychotic features Borderline personality disorder 56592087 F60.3 medication s adjusted at partial program Acute otitis media 44442 03 H65.03 [place] on abx [id number] DAMIÁN OZUNA [facility] Internal Medicine [address] [facility] [address] [place] [address] 06/10/2022 09:22:33 06/10/2022 10:08:47 Migraine 87778161 G43.009 will fu with submitting her emgality and see what the pharmacy sends back Bipolar disorder 8280071 4 F31.2 may need addition of Haldol for more severe psychotic features Borderline personality disorder F60.3 medication s adjusted at

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
== END 2024-08-09 14:07 | disposition home or self-care (01) ==
LOC: HO.LNP 14:06
PROVIDERS: Visit Provider Psychiatry & Neurology Psychiatry
DX: F31.9 Bipolar disorder, unspecified (principal); F43.10 Post-traumatic stress disorder, unspecified; F12.20 Cannabis dependence, uncomplicated
CPT/HCPCS: 80307

== ENCOUNTER 2024-08-16 08:04 | Outpatient (REF) | payer BC, SELFPAY ==
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
--- OUTSIDE RECORDS SUMMARY | 2024-08-16 08:11 | XMS_ITS | Data Portability ---
Author Organization [facility] Home Service Address [address] [place] [address] Assessment Encounter Date Assessment Date Assessment LastModified by Organization Details LastModified Time 02/23/2022 02/23/2022 Patient agreed and verbally consents to this audio and video Telehealth appt via a secure platform [email or web address] Not available 02/23/2022 14:03:15 Plan of Treatment Reminders Order Date Submit Date Provider Last Modified By Organization Details Last Modified Time Details Appointments None recorded. Lab urinalysis complete, reflex culture 2022 023 [facility], [address] [place] [address], [address], 3 10:16:40 CMP, serum or plasma 2022 023 [facility], [address] [place] [address], [address], 3 10:10:22 hemoglobin A1c, QN, blood 2022 023 [facility], [address] [place] [address], [address], 3 10:10:23 osmolality , urine 2022 023 [facility], [address] [place] [address], [address], 3 10:10:22 Referral None recorded. Procedures None recorded. Surgeries None recorded. Imaging CT, abdomen + pelvis, w/o contrast 2022 023 [email or web address] 10 [facility], [address] [facility] [address], [place], [address], 3 08:42:17 US, pelvis, limited 2022 023 [email or web address] [facility], [address], [place], [address], 3 08:53:27 MRI, brain + brain stem, w/wo contrast 2021 022 [email or web address] Not available 2 10:09:12 holter monitor - 3 day holter; increased palpitatio ns and tachycardi a 2021 022 [email or web address] 10 [facility], [address] [facility], [place], [address], 2 08:09:09 Medication Orders lamotrigin e 25 mg tablet 2022 023 [facility], [address] [place], [address], 3 12:10:57 tamsulosin 0.4 mg capsule 2022 023 [facility], [address] [place], [address], 3 12:33:54 docusate sodium 100 mg capsule 2022 023 [facility], [address] [place] [address], [address], 3 10:01:28 ciprofloxa giovanna 500 mg tablet 2022 023 [facility], [address] [place], [address], 3 09:56:04 prednisone 20 mg tablet 2022 023 [facility], [address] [place], [address], 3 09:58:24 amoxicilli n 875 mg tablet 2021 022 [facility], [address] [place] [address], [address], 09:27:15 eszopiclon e 1 mg tablet 2021 022 [facility], [address] [place], [address], 13:55:08 lamotrigin e 25 mg tablet 2021 022 [email or web address] [facility] [address] [place] [address], [address], 09:00:42 Patient TargetsNo targets recorded. Patient Instructions Encounter Date Encounter Id Patient Instructions Last Modified By Organization Details Last Modified Time 06/10/2022 [id number] pulse oximetry* [email or web address] Not available 06/10/2022 09:51:50 Reason for Referral None Reported. Results Created Date Observation Date Name Description Value Unit Range Abnormal Flag Note LastModifiedBy Organization Detail LastModifiedTime 06/10/19 23 06/10/2022 pulse oxime try* Result [address] [facility] [address] [facility] [address], [place], [address], 06/10/2022 09:04:00 07/12/19 23 07/11/2022 , sam chawla No observ ation record ed. [email or web address] [facility] (Medical Records) [address] [place] [address], [address], 07/13/2022 16:10:39 10/06/19 23 09/30/2022 CT, abdom en + pelvi s, w/o contr ast No observ ation record ed. [email or web address] [facility] (Medical Records) [address] [place], [address], 10/07/2022 12:14:25 Result Notes None recorded. Problems Name Problem SNOMED Code Status Onset Date Resolution Date Notes Provider Name and Address Organization Details Recorded Time Asthma 429611149 Active 2020 DAMIÁN OZUNA [address] [place], [address], [facility] 09:58:09 Migraine 19625947 Active 2020 due to past concussi ons, reports 8 DAMIÁN OZUNA [address] [place] [address], [address], [facility] 1 10:01:15 Bipolar disorder 24840391 Active 2020 DAMIÁN OZUNA [address] [place], [address], [facility] 10:11:01 Borderli ne personal ity disorder 11106015 Active 2020 DAMIÁN OZUNA [address] [place] [address], [address], [facility] 10:11:28 Postural orthosta tic tachycar wali syndrome 919539165 Active 2020 DAMIÁN OZUNA [address] [place] [address], [address], [facility] 10:11:53 Posttrau matic stress disorder 47414165 Active 2020 DAMIÁN OZUNA [address] [place], [address], [facility] 1 10:12:54 Recurren t miscarri age 761142721 Active 2020 DAMIÁN OZUNA [address] [place], [address], [facility] 12:28:53 Anxiety 52617570 Active 2020 DAMIÁN OZUNA [address] [place], [address], [facility] 1 09:45:49 Acute sinusiti s 41681342 Active 2021 DAMIÁN OZUNA [address] [place] [address], [address], [facility] 2 14:49:13 Menstrua l migraine 01191040 Active 2021 DAMIÁN OZUNA [address] [place] [address], [address], [facility] 2 11:53:17 Pain of right shoulder joint 12744937107 518960 Active 2021 DAMIÁN OZUNA [address] [place] [address], [address], [facility] 2 16:51:03 Insomnia 546335523 Active 2021 DAMIÁN OZUNA [address] [place] [address], [address], [facility] 2 13:52:50 Nausea 088874980 Active 2021 DAMIÁN OZUNA [address] [place] [address], [address], [facility] 2 14:18:27 Acute otitis media 6820908 Active 2021 DAMIÁN OZUNA [address] [place] [address], [address], [facility] 2 09:26:46 Urine looks dark 67046264 Active 2021 DAMIÁN OZUNA [address] [place] [address], [address], [facility] 2 12:39:36 Acute urinary tract infectio n 966019942 Active 2022 DAMIÁN OZUNA [address] [place] [address], [address], [facility] 3 09:51:32 Constipa tion 22877292 Active 2022 DAMIÁN OZUNA [address] [place], [address], [facility] 3 09:53:44 Kidney stone 80179739 Active 2022 DAMIÁN OZUNA [address] [place], [address], [facility] 3 13:21:32 Candidia sis of vagina 37908956 Active 2022 DAMIÁN OZUNA [address] [place], [address], [facility] 3 13:22:22 Dermoid cyst of head 225379459 Active 2022 DAMIÁN OZUNA [address] [place], [address], [facility] 3 12:21:33 Problem Notes None recorded. Procedures Surgical History Date Name Laterality Status Provider Name and Address Organization Details Recorded Time extraction of wisdom tooth completed DAMIÁN OZUNA [address] [place], [address], [facility] 09/04/2020 10:15:51 Imaging Results Imaging Date Name Status LastModified by Organiz ation Details LastModified Time 07/11/2022 US, kidney completed [email or web address] [facility] (Medical Records) [address] [place] [address], [address], 07/13/2022 16:10:39 09/30/2022 CT, abdomen + pelvis, w/o contrast completed [email or web address] [place] [address] (Medical Records) [address] [place] [address], [address], 10/07/2022 12:14:25 Procedure Notes None recorded. Medical [...] /min 128 mm[Hg] 72 mm[Hg] Jeana Calderon [facility] 2 10:27:06 Date Recorded Body height Body mass index (BMI) Body weight Heart rate Oxygen saturation Oxygen saturation in Arterial blood by Pulse oximetry Systolic blood pressure Diastolic blood pressure Provider Name and Address Organization Details Last Updated DateTime 2 168.91 cm 19 kg/m2 54405.9 3 g 74 /min 99 % 99 % 110 mm[Hg] 70 mm[Hg] Yoli Quiñones [facility] 2 09:04:10 Date Recorded Body height Body mass index (BMI) Body weight Heart rate Oxygen saturation Oxygen saturation in Arterial blood by Pulse oximetry Systolic blood pressure Diastolic blood pressure Provider Name and Address Organization Details Last Updated DateTime 3 168.91 cm 19.4 kg/m2 46863.5 5 g 85 /min 98 % 98 % 126 mm[Hg] 60 mm[Hg] Keara Moraes [facility] 3 09:31:34 Social History Question Answer Notes LastModified by Organizat ion Details LastModified Time Tobacco Smoking Status Never Smoker Keri tolentino [facility] 09/04/2020 09:51:13 What Is [...] Or The Highest Degree You Have Received? [id number] Information not available 05/27/2022 What Is Your [...] Anxious, Or Unable To Sleep At Night)? [id number] Information not available 05/27/2022 Do You Use [...] mL dose 03/16/2021 completed [facility] 04/13/2021 10:54:53 COVID-19, mRNA, LNP-S, PF, 30 mcg/0.3 mL dose 08/28/2020 completed DAMIÁN OZUNA [address] [place], [address], [facility] 09/04/2020 10:18:32 COVID-19, mRNA, LNP-S, PF, 30 mcg/0.3 mL dose 09/18/2020 completed Keara tolentino [facility] 11/04/2020 14:01:18 Past Encounters Encounter ID Performer Location Encounter Start Date Encounter Closed Date Diagnosis/Indication Diagnosis SNOMED-CT Code Diagnosis ICD10 Code Diagnosis Note [id number] [facility] [address] [facility] [address] 09/04/2020 09:45:03 09/04/2020 11:57:05 Allergic reaction 027385176 T78.40XD patient may be having food allergies, not sure to what will fu with incident manager Anxiety 02657274 F41.9 sees richy, would like to change, will not refill her medication s unless she is seen cost $200 per appt looking into getting new matt lockhart calling insurance and getting a list Bipolar disorder 5393619 4 F31.0 stable on medication Borderline personality disorder 28314570 F60.3 stable on medication Asthma 376115118 J45.90 9 exercise induced stable currently had reaction to pro-air if she does end up needing inhaler will discuss options that may work better Migraine 94252652 G43.90 9 severe migraines, uses amitrp and sees neuro for fu Postural o rthostatic tachycardia syndrome 823935163 I95.1 sees cardiology for fu Posttrauma tic stress disorder 51799277 F43.10 will monitor her symptoms the patient can fu with me with psych list Recurrent miscarriage 10 0479801 N96 the patient has hx of recurrent miscarriag es, would like to see new OB gave her list to look through has fu with me to discuss [id number] [facility] [address] [facility] [address] 11/04/2020 13:53:46 11/04/2020 16:24:43 Bipolar disorder 31550644 F31.0 stable on medication , will discuss what to do in the case she becomes Posttrauma tic stress disorder 08723461 F43.12 will monitor her symptoms the patient can fu with me with psych list if she would like as well Recurrent miscarriage 10 0744626 N96 the patient has hx of recurrent miscarriag es if another miscarriag e, discussed fu with reproducti ve services Migraine 23692187 G43.90 9 discussed migraine medication s that may better suit her such as maintenanc e medication s like verapamil, propranolo l, topimax which may work better for her since increased dose of ami dose not seem to help [id number] [facility] [address] [facility] [address] 12/09/2020 10:24:21 12/09/2020 11:19:20 Asthma 751387738 J45.909 exercise induced stable currently had reaction to pro-air if she does end up needing inhaler will discuss options that may work better Bipolar disorder 2700158 4 F31.0 stable on medication Gastroesop hageal reflux disease 006131411 K21.9 needs refill Pain in pelvis 44570265 R10.2 left side, will exclude and fu with US pelvis [id number] [facility] [address] [facility] [address] 02/23/2021 09:02:26 02/23/2021 16:48:31 Bipolar disorder 30944807 F31.0 stable on medication Pain in left foot 438982 2762 43545 M79.672 most likely nerve injuryreco vering will fu if no full improvemen t [id number] [facility] [address] [facility] [address] 05/05/2021 08:10:57 05/07/2021 16:27:25 Bipolar disorder 64926604 F31.0 will increase her seroquel dose to 250 mg and see how she does Borderline personality disorder F60.3 medication s adjusted Anxiety 62338098 F41.1 will increase ativan dose to 1 mg twice per day [id number] [facility] [address] [facility] [address] [address] 07/21/2021 13:31:49 07/21/2021 15:32:05 Bipolar disorder 84888156 F31.0 will set up for partial programord er already filled out Anxiety 35783193 F41.1 medication adjustment as described in note Postural o rthostatic tachycardia syndrome 551849351 I95.1 hold on adjustment of medication until we stabalize her medication Panic attack 637165606 F 41.0 adjustment of her medication Chronic in terstitial cystitis 491879054 N30.10 suggested diet changes that could be beneficial and aloe supplement s that also work well for symptoms [id number] [facility] [address] [facility], [place] [address] 09/07/2021 14:56:22 09/07/2021 16:12:20 Migraine 56823520 G43.009 will fu with submitting her emgality and see what the pharmacy sends back Borderline personality disorder 75014826 F60.3 medication s adjusted at partial program Anxiety 45898790 F41.1 medication adjustment as described in note Asthma 147490892 J45.20 exercise induced stable currently had reaction to pro-air if she does end up needing inhaler will discuss options that may work better Bipolar disorder 1899168 4 F31.0 stable currentlyw ill be adjusting medication did intake today for [facility] , expected first session is in 4 to 6 weeks Postural o rthostatic tachycardia syndrome 451504392 I95.1 hold on adjustment of medication until we stabilize her medication could be beneficial for her to use clonidine Posttrauma tic stress disorder 82136710 F43.12 will monitor her symptoms the patient can fu with me with psych list if she would like as well [id number] [facility] [address] [facility], [place] [address] 12/07/2021 09:59:05 12/07/2021 13:38:27 Menstrual migraine 63959665 G43.831 will trial one month course of lo lo estrin, if not effective or causes too many side effects will discuss next treatment option Anxiety 09170484 F41.1 medication stable [id number] [facility] [address] [facility] [address] [place] [address] 02/02/2022 10:18:59 02/02/2022 11:24:10 Anxiety 27167873 F41.1 medication stable Asthma 170712923 J45.20 stable Migraine 64718984 G43.00 9 will fu with submitting her emgality and see what the pharmacy sends back Bipolar disorder 6171540 4 F31.0 will adjust dose of lamictal Borderline personality disorder 37060899 F60.3 medication s adjusted at partial program [id number] [facility] [address] [facility] [address] [place] [address] 02/23/2022 11:22:50 02/25/2022 12:53:21 Insomnia 545458420 G47.09 will add lunesta to her medication s for the sleepshe is averaging one hour of sleep per day with small naps in-between Bipolar disorder 4665910 4 F31.2 may need addition of Haldol for more severe psychotic features Postural o rthostatic tachycardia syndrome 077112166 I95.1 will schedule patient for a 3 day holter [id number] [facility] [address] [facility] [address] [address] 05/06/2022 08:53:41 05/06/2022 10:00:19 Migraine 26197299 G43.009 will fu with submitting her emgality and see what the pharmacy sends back Anxiety 56168246 F41.1 medication stable Bipolar disorder 9913605 4 F31.2 may need addition of Haldol for more severe psychotic features Borderline personality disorder 13996384 F60.3 medication s adjusted at partial program Acute otitis media 86357 03 H65.03 will start on abx [id number] [facility] [address] [facility] [address] [address] 06/10/2022 09:22:33 06/10/2022 10:08:47 Migraine 84317118 G43.009 will fu with submitting her emgality and see what the pharmacy sends back Bipolar disorder 5463495 4 F31.2 may need addition of Haldol for more severe psychotic features Borderline personality disorder F60.3 medication s adjusted at partial program Asthma 343326426 J45.20 stable Acute urin luna tract infection 924962247 N10 will f/u with US pelvis Constipation 22761493 K5 9.09 will have patient [id number] DAMIÁN OZUNA [facility] [address] [facility] [address] [place] [address] 09/14/2022 11:34:58 09/14/2022 14:05:52 Bipolar disorder 32290255 F31.2 take 100 mg of lamictal every other day; take 50 mg in-between every other day to see if it works betterif no change will try that same on the seroquelpa tient agrees to plan Borderline personality disorder F60.3 stable currentlyw ill see if we can lessen the fatigue/la ck of emotional response Kidney stone 46351375 N2 0.0 agreed to f/u CT prior to uro appt in October Health Concerns Section Related Observation LastModified by Organization Detai ls LastModified Time None Recorded Concern Status LastModified by Organization Details LastModified Time None Recorded Advance Directives Directive None Recorded Payers Encounter Date Sequence Insurance Name Policy Number Policy Liang Covered Member ID Liang Member ID Guarantor Name 02/02/2022 1 [facility] [employer] TYPE I (HMO) [id number] [facility] [id number] 2 [facility]ry [facility] 02/23/2022 1 [facility] [employer] TYPE I (HMO) [id number] [facility]ry [facility] [id number] 2 [employer] [facility] 05/06/2022 1 [facility] [employer] TYPE I (HMO) [id number] Corry [facility] [id number] 2 [employer]ry [facility] [employer] 06/10/2022 1 [facility] [employer] TYPE I (HMO) [id number] [facility] [id number] 2 [facility] 09/14/2022 1 [facility] TYPE I (HMO) [id number] Coryr Rodgers-Maria Isabel illips [id number] 2 Corry [facility] lips Notes Date Note [...] BPPD: stable, will adjust medication DAMIÁN OZUNA [address] [place] [address], [address], [facility] 02/02/2022 11:18:05 2 text/html f/u video call for bipolar with manic episode with psychotic features the appointment was performed via [employer] Platform for a telemed appt with realtime [...] be the best optionshe [place] with her who is monitoring her closely [...] most recent office notes DAMIÁN OZUNA [address] [place], [address], [facility] 02/23/2022 18:31:04 2 text/html 3 [...] presentation of her migraines DAMIÁN OZUNA [address] [place], [address], [facility] 05/06/2022 09:30:47 3 text/html f/u medication check bipolar: discussed adjustment medication plan to lessen her symptomsdosing schedule for lamictal; lower dose every other day borderline personality disorder: doing well kidney stone: repeat CTrestart flomax DAMIÁN OZUNA [address] [place], [address], [facility] 09/14/2022 12:33:57 OBGyn Episode No OBEpisode recorded.
[2024-08-16 08:46] LABS: MANUAL DIFF FLAG NO
[2024-08-16 09:03] LABS: Ammonia 33 umol/L (13-55)
[2024-08-16 09:12] LABS: Basophils Percent Auto 1.1 % (0-2); Eosinophils Absolute Auto 0.1 X10*3/uL (0.0-0.4); Hematocrit 40.1 % (37.0-47.0); Hemoglobin 13.8 g/dl (12.0-16.0); Imm Gran Abs Auto 0.01 X10*3/uL (0.00-0.03); Imm Gran Pct Auto 0.3 % (0.0-0.4); Lymphocytes Absolute Auto 1.7 X10*3/uL (1.2-4.9); Lymphocytes Percent Auto 47.3 % (20-40); Mean Corpuscular HGB Conc 34.4 g/dl (31.0-35.0); Mean Corpuscular Hemoglobin 30.7 pg (27.0-33.0); Mean Corpuscular Volume 89.1 fL (80.0-98.0); Mean Platelet Volume 9.6 fL (9.4-12.3); Monocytes Absolute Auto 0.3 X10*3/uL (0.1-1.2); Monocytes Percent Auto 7.1 % (2-11); Neutrophils Absolute Auto 1.4 x10*3/uL (2.0-8.3); Neutrophils Percent Auto 40.2 % (45-73); Platelet Count 220 X10*3/uL (160-400); Red Cell Distribution Width 13.3 % (11.0-16.0); White Blood Count 3.5 X10*3/uL (4.8-10.8)
[2024-08-16 09:31] LABS: Estimated Average Glucose 105 mg/dL; Hemoglobin A1c % 5.3 % (<6.0)
[2024-08-16 10:05] LABS: Erythrocyte Sedimentation Rate 1 MM/HR (0-20)
[2024-08-16 10:23] LABS: Alanine Aminotransferase 20 U/L (0-31); Albumin Level 4.6 g/dL (3.5-5.0); Alkaline Phosphatase 65 U/L (39-117); Anion Gap 10 (12-20); Aspartate Amino Transferase 20 U/L (5-31); Bilirubin Total 0.5 mg/dL (0.0-1.0); Blood Urea Nitrogen 11 mg/dL (9-16); C Reactive Protein < 0.04 mg/dL (< or = 0.50); Calcium 8.9 mg/dL (8.4-10.2); Carbon Dioxide 24 mmol/L (22-29); Chloride 110 mmol/L (96-108); Cholesterol 225 mg/dL (<200); Estimated Glomerular Filt Rate > 60; Glucose Fasting 93 mg/dL (60-99); HDL Cholesterol 68 mg/dL (>40); Iron 74 mcg/dL (30-160); LDL Cholesterol Calculated 148 mg/dL (<100); Magnesium 2.1 mg/dL (1.6-2.6); Percent Iron Saturation 26 % (15-50); Phosphorus 3.7 mg/dL (2.7-4.5); Sodium 140 mmol/L (135-145); Total Iron Binding Capacity 282 mcg/dL (228-428); Total Protein 7.3 g/dL (6.5-8.0); Triglycerides 46 mg/dL (<150); Unsaturated Iron Binding 208 ug/dL
[2024-08-16 10:27] LABS: Parathyroid Hormone Intact 56.9 pg/mL (8.7-77.1)
[2024-08-16 10:44] LABS: Folate 8.2 ng/mL (> or = 4.0); Vitamin B12 552 pg/mL (200-900)
[2024-08-16 10:47] LABS: Ferritin 30 ng/mL (10-122); Free T4 (Free Thyroxine) 0.82 ng/dL (0.71-1.85); Thyroid Stimulating Hormone 1.49 uIU/mL (0.32-4.0); Vitamin D 25-OH Total 20.9 ng/mL (>30)
--- NOTE | 2024-08-16 15:18 | ECG_ITS ---
Test Reason : f31.3 f07.81 Blood Pressure : */* mmHG Vent. Rate : 67 BPM Atrial Rate : 67 BPM P-R Int : 160 ms QRS Dur : 102 ms QT Int : 404 ms P-R-T Axes : 48 29 50 degrees QTcB Int : 426 ms Normal sinus rhythm with sinus arrhythmia Incomplete right bundle branch block Borderline ECG No previous ECGs available Referred By: Hafsa Hanson Electronically Signed By: TREV BRAXTON
[2024-08-17 18:13] LABS: Prolactin 48.7 ng/mL
[2024-08-19 16:34] LABS: Homocysteine 9.3 umol/L (<10.4)
[2024-08-21 11:19] LABS: Methylmalonic Acid 104 nmol/L (55-335)
[2024-08-25 11:44] LABS: Vitamin B1 15 nmol/L (8-30)
== END 2024-08-16 08:05 | disposition home or self-care (01) ==
LOC: HO.LAB 08:04
PROVIDERS: Visit Provider Psychiatry & Neurology Psychiatry
DX: F31.30 Bipolar disorder, current episode depressed, mild or moderate severity, unspecified (principal); F07.81 Postconcussional syndrome; Z13.1 Encounter for screening for diabetes mellitus
CPT/HCPCS: 36415; 80053; 80061; 82140; 82306; 82607; 82728; 82746; 83036; 83090; 83540; 83735; 83921; 83970; 84100; 84146; 84425; 84439; 84443; 85025; 85652; 86140; 93005

== ENCOUNTER → 2024-08-16 15:18 | Outpatient (BNV) | payer BC, SELFPAY | PROVIDERS: Visit Provider Internal Medicine | DX: I45.10 Unspecified right bundle-branch block (principal); I49.9 Cardiac arrhythmia, unspecified | CPT/HCPCS: 93010 ==

== ENCOUNTER → 2024-08-20 10:45 | Outpatient (BNV) | payer BC, SELFPAY | PROVIDERS: Visit Provider Psychiatry & Neurology Psychiatry | DX: F31.30 Bipolar disorder, current episode depressed, mild or moderate severity, unspecified (principal); F43.10 Post-traumatic stress disorder, unspecified; F07.81 Postconcussional syndrome; F13.20 Sedative, hypnotic or anxiolytic dependence, uncomplicated | CPT/HCPCS: 90792; 99213; 99214 ==

== ENCOUNTER 2024-08-26 11:15 | Outpatient (RCR) | payer BC, SELFPAY ==
[2024-08-09 11:00] VITALS: BMI 19.9
[2024-08-09 11:03] VITALS: BP 118/70; PULSE 60; TEMP 36.8
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
--- NOTE | 2024-08-14 16:02 | HO.PHP ---
A referral for OP therapy services and a recovery advocate was faxed to [facility] today for Corry Vallejo.
--- NOTE | 2024-08-15 15:23 | HO.PHP ---
Pt's case has been opened and reviewed in treatment team.
--- NOTE | 2024-08-16 13:32 | HO.PHPPROGNO ---
Subjective Subjective Date of Service: 08/16/24 Reason For Visit: bipolar,PTSD Interim History: Patient seen for follow-up. ?I am usually a very bubbly person. Seems I just do not want to engage with people now. At times I feel little disconnected or maybe dissociated.? They say it is difficult to tell what the source of the struggle is. Have been more isolative, difficulty with focus and concentration as well as other mental tasks, decision-making, prioritization, multi-tasking and other executive dysfunction since head injury. They have been less talkative and is not sure if this is stemming from low mood or difficulty articulating their thoughts. Describes some deficits in their fine motor skills, with ?spilling shit all the time, or being able to pinch things or read?. Mood tends towards the low side, ?stuck in my head? which they note is unusual for them as historically they oscillate between ar and euthymia. They continue on gabapentin 100 mg 3 times a day. They find that the 100 mg dose in the evening lingers into the morning and they feel particularly tired. During the day 100 mg is well tolerated and is felt to be helpful with anxiety. And also feels is helping more modestly with pain. Medication Compliance: Yes Side effects from medications: No Attending Groups: Yes Review of Systems Acute medical concerns: No Mental Status Exam Mental Status Exam Narrative: Alert, oriented, in no acute distress. Calm, cooperative, engaged. No psychomotor agitation or neurovegetative retardation. Eye contact maintained. Mood anxious, affect variable, mood congruent. Speech normal. Thought process linear, coherent. Thought content related to stressors, denies any hopelessness or SI. Denies any aggressive ideation or HI. No paranoia or delusional content elicited. No evidence of psychosis. Insight and judgment - fair but adequate. Diagnostics Vital Signs (24Hr): BMI result Body Mass Index 19.9 Assessment & Plan Assessment & Plan (1) Bipolar affective disorder, depressed: Status: Acute Code(s): F31.30 - Bipolar disorder, current episode depressed, mild or moderate severity, unspecified (2) Complex posttraumatic stress disorder: Status: Acute Code(s): F43.10 - Post-traumatic stress disorder, unspecified (3) Post concussive syndrome: Status: Acute Code(s): F07.81 - Postconcussional syndrome (4) Benzodiazepine dependence, continuous: Status: Acute Code(s): F13.20 - Sedative, hypnotic or anxiolytic dependence, uncomplicated Assessment and Plan: (iatrogenic) physiological dependence without BUD, BZD misuse or abuse disorder Plan Continue in PHP start Vyvanse 10 mg qam (hold Wellbutrin for now) increase gabapentin from 100 to 200 mg TID continue lamotrigine 25 mg qd (eventually taper off) lithium 150 mg qhs not started (pt preference, has been on lithium in past) continue quetiapine 400 gm qhs continue alprazolam 0.5-1 mg qhs (once gabapentin established/tolerated, we may initiate gradual taper) continue other regular medications: fludrocortisone 0.2 mg qd, omeprazole 10 mg, sumatriptan Routine lab work ordered as indicated EKG, routine for baseline QTc for medication considerations as indicated UDS as indicated Continue to monitor Patient educated on: diagnosis, medication risk/benefits and medical condition Informed Consent: understands Reason for contiued partial hosp. stay Substantial Risk for: inability to function, rapid decompensation and med/psych decompensation Certification I certify that partial hospital treatment is medically necessary due to the symptoms and problems resulting from the patient's mental illness and the failure to treat the patient at the partial hospital level of care would likely result in the patient requiring inpatient psychiatric care which could not be prevented at a less intensive level of care. Total time managing care of this patient today __30__ minutes. Discharge Plan Discharge Attending provider: Hafsa Hanson Medications: New lamotrigine 25 mg tablet 25 mg PO DAILY Qty: 30 0RF Vraylar 1.5 mg capsule 1.5 mg PO DAILY Qty: 14 0RF No Action fludrocortisone 0.1 mg Tablet 0.2 mg PO DAILY sumatriptan succinate 100 mg Tablet See Rx Instructions .ROUTE .COMPLEX PRN (Reason: Migraine Headache) Rx Instructions: Take on tab as needed. May repeat in 2 hours if ineffective. Do not exceed 2 doses per 24 hrs alprazolam [Xanax] 0.5 mg Tablet 0.5 - 1 mg PO BEDTIME PRN (Reason: Anxiety) Rx Instructions: Filled 08/03/21 for 30 day supply. lamotrigine 100 mg tablet 50 mg PO DAILY Rx Instructions: Patient has been taking 1/2 a tab daily. lithium carbonate 150 mg Capsule 150 mg PO DAILY Patient Comments: Patient has not stated this medication. Rx Instructions: Patient prescribed in 07/17/24. Reports she has not started this medication yet. omeprazole 10 mg Capsule,Delayed Release(Dr/Ec) 10 mg PO DAILY quetiapine 400 mg Tablet 400 mg PO BEDTIME gabapentin 100 mg Capsule 100 mg PO TID Patient Comments: New Medication prescribed by outpatient provider. lisdexamfetamine 10 mg capsule 10 mg PO QAM Qty: 14 0RF Rx Instructions: Partial Fill upon patient request. Stand Alone Forms: Patient Portal Discharge page Print Language: Swedish
--- NOTE | 2024-08-20 12:29 | HO.PHPPROGNO ---
Subjective Subjective Date of Service: 08/20/24 Reason For Visit: bipolar,PTSD Interim History: Patient seen for follow-up. She reportedly had not notice any difference on the Vyvanse 10 mg Monday morning she did proceed to take with food and follow through with instructions. On Monday she titrated dose to 20 mg with breakfast and found that this in fact was very good dose. She was able to walk around and engage with her sister in town felt much more calm relaxed and less intrusive thoughts also reports improved functionality. However upon repeating her dose of 20 mg on Monday she noted feeling ?a little more jittery and possibly manic. She says she has been manic in past in it with this was in keeping noticing decreased need for sleep actively trying to connect with old friends that she had not seen in a long time and getting lost in chills of thought.. She has not started on the lithium yet as she is really adverse to starting on this and would prefer other options. She has been on lithium in the past but due to her history of recurrent kidney stones she would prefer to avoid this medication altogether. She is open to trialing Vraylar socially since her moods tend to be euphoric or elevated rather than depressed.She denies SI/SIB, HI, AH, VH. Reality testing is intact. She reports sleeping for a couple of hours has not gone completely without sleep but does feel internal restlessness that persists throughout the day and difficulty concentrating. She has a history of manic episodes where she can go days and up to week with minimal sleep no symptoms suggestive of aberrant thinking delusions or disorganized thoughts. Namely Mental Status Exam Mental Status Exam Narrative: Alert, oriented, in no acute distress. Calm, cooperative, engaged. No psychomotor agitation or neurovegetative retardation. Eye contact maintained. Mood anxious, affect variable, mood congruent. Speech normal. Thought process linear, coherent. Thought content related to stressors, denies any hopelessness or SI. Denies any aggressive ideation or HI. No paranoia or delusional content elicited. No evidence of psychosis. Insight and judgment - fair but adequate. Diagnostics Vital Signs (24Hr): Vital Signs - 24 hr 08/20/24 14:22 Pulse Rate 64 Blood Pressure 124/80 BMI result Body Mass Index 19.9 Assessment & Plan Assessment & Plan (1) Bipolar affective disorder, depressed: Status: Acute Code(s): F31.30 - Bipolar disorder, current episode depressed, mild or moderate severity, unspecified (2) Complex posttraumatic stress disorder: Status: Acute Code(s): F43.10 - Post-traumatic stress disorder, unspecified (3) Post concussive syndrome: Status: Acute Code(s): F07.81 - Postconcussional syndrome (4) Benzodiazepine dependence, continuous: Status: Acute Code(s): F13.20 - Sedative, hypnotic or anxiolytic dependence, uncomplicated Assessment and Plan: (iatrogenic) physiological dependence without BUD, BZD misuse or abuse disorder Plan Continue in PHP start cariprazine 1.5 mg qhs continue gabapentin at 100-200 mg TID co.tinue lamotrigine 25 mg qd (eventually taper off) lithium 150 mg qhs not started continue quetiapine 400 gm qhs continue alprazolam 0.5-1 mg qhs (once gabapentin established/tolerated, we may initiate gradual taper) continue other regular medications: fludrocortisone 0.2 mg qd, omeprazole 10 mg, sumatriptan Routine lab work ordered as indicated EKG, routine for baseline QTc for medication considerations as indicated UDS as indicated Continue to monitor Patient educated on: diagnosis, medication risk/benefits and medical condition Informed Consent: understands Reason for contiued partial hosp. stay Substantial Risk for: inability to function, rapid decompensation and med/psych decompensation Certification I certify that partial hospital treatment is medically necessary due to the symptoms and problems resulting from the patient's mental illness and the failure to treat the patient at the partial hospital level of care would likely result in the patient requiring inpatient psychiatric care which could not be prevented at a less intensive level of care. Total time managing care of this patient today __30__ minutes. Discharge Plan Discharge Attending provider: Hafsa Hanson Medications: New lamotrigine 25 mg tablet 25 mg PO DAILY Qty: 30 0RF Vraylar 1.5 mg capsule 1.5 mg PO DAILY Qty: 14 0RF No Action fludrocortisone 0.1 mg Tablet 0.2 mg PO DAILY sumatriptan succinate 100 mg Tablet See Rx Instructions .ROUTE .COMPLEX PRN (Reason: Migraine Headache) Rx Instructions: Take on tab as needed. May repeat in 2 hours if ineffective. Do not exceed 2 doses per 24 hrs alprazolam [Xanax] 0.5 mg Tablet 0.5 - 1 mg PO BEDTIME PRN (Reason: Anxiety) Rx Instructions: Filled 08/03/21 for 30 day supply. lamotrigine 100 mg tablet 50 mg PO DAILY Rx Instructions: Patient has been taking 1/2 a tab daily. lithium carbonate 150 mg Capsule 150 mg PO DAILY Patient Comments: Patient has not stated this medication. Rx Instructions: Patient prescribed in 07/17/24. Reports she has not started this medication yet. omeprazole 10 mg Capsule,Delayed Release(Dr/Ec) 10 mg PO DAILY quetiapine 400 mg Tablet 400 mg PO BEDTIME gabapentin 100 mg Capsule 100 mg PO TID Patient Comments: New Medication prescribed by outpatient provider. lisdexamfetamine 10 mg capsule 10 mg PO QAM Qty: 14 0RF Rx Instructions: Partial Fill upon patient request. Stand Alone Forms: Patient Portal Discharge page Print Language: Luxembourgish
--- NOTE | 2024-08-20 13:46 | HO.PHP ---
[facility] staff member met with Corry due to her leaving the last group of the day. [facility] staff member explored with Corry what is occurring. Corry noted that she is feeling manic today. [facility] staff member asked her to provide clarification around what she means by manic. Corry noted that she has a fuzzy brain but had a challenging time trying to express what that meant. Corry voiced that she is struggling with focusing and is feeling more irritable as well. Corry noted that she met with Dr. Hanson today and she feels that it is due to a stimulant that she started that they are going to now discontinue. Corry expressed that Dr. Hanson would like more time with her because she is making medication changes. Corry mentioned that she is supposed to start work on Monday. Corry said if she goes back to feeling the way she was prior to starting the stimulant because she was starting to feel her depression improving, she will be ready to return to work on Monday and would be okay with discharging on Monday. Corry stated that she nows Dr. Hanson wants to try her on the stimulant again at a lower dose because it was helping. [facility] staff member was receptive and stated that we will meet as a team to review what we feel would be the most appropriate thing for discharge based off her presentation. Corry appeared receptive. Corry also talked about lab results that brought up some concerns around her health, which has been an additional stressor. [facility] staff member was actively listening to Corry and providing support as needed. Corry shared her plans for after program, which is to spend time with her parents. Corry was able to regulate and found the conversation to be helpful. Annabella then returned to the last group of the day, which was a resources/structure group.
[2024-08-20 14:22] VITALS: BP 124/80; PULSE 64
--- NOTE | 2024-08-21 15:42 | HO.PHP ---
Corry (Mei) received their new follow-up OP therapy appt with [facility], the appt is as follows: 0:00 AM - 11:00 AM [facility] Adult Comprehensive Assessment Prog: Outpatient Site: [facility] Staff: Myra Tony
--- NOTE | 2024-08-26 14:53 | P.PNPSP_ITS ---
Subjective Subjective Date of Service: 08/26/24 Reason For Visit: bipolar,PTSD Diagnostics Vital Signs (24Hr): BMI result Body Mass Index 19.9 Assessment & Plan Certification I certify that partial hospital treatment is medically necessary due to the symptoms and problems resulting from the patient's mental illness and the failure to treat the patient at the partial hospital level of care would likely result in the patient requiring inpatient psychiatric care which could not be prevented at a less intensive level of care. Total time managing care of this patient today ____ minutes. Discharge Plan Discharge Attending provider: Hafsa Hanson Medications: New cariprazine 3 mg capsule 3 mg PO DAILY Qty: 14 0RF gabapentin 300 mg capsule 300 mg PO BEDTIME Qty: 14 0RF alprazolam 0.5 mg tablet 0.5 - 1 mg PO BEDTIME PRN (Reason: anxiety) 15 Days Qty: 30 0RF ergocalciferol (vitamin D2) [Vitamin D2] 1,250 mcg (50,000 unit) capsule 1,250 mcg PO QWEEK Qty: 8 0RF quetiapine 300 mg tablet 300 mg PO BEDTIME Qty: 14 0RF Continued fludrocortisone 0.1 mg Tablet 0.2 mg PO DAILY sumatriptan succinate 100 mg Tablet See Rx Instructions .ROUTE .COMPLEX PRN (Reason: Migraine Headache) Rx Instructions: Take on tab as needed. May repeat in 2 hours if ineffective. Do not exceed 2 doses per 24 hrs omeprazole 10 mg Capsule,Delayed Release(Dr/Ec) 10 mg PO DAILY gabapentin 100 mg capsule 100 - 200 mg PO BID Qty: 60 0RF Rx Instructions: in AM and afternoon lisdexamfetamine 10 mg capsule 10 mg PO QAM Qty: 14 0RF Rx Instructions: take no more than 3 times a week ( or less) preferably not more frequent than q other day. Partial Fill upon patient request. Discontinued alprazolam [Xanax] 0.5 mg Tablet 0.5 - 1 mg PO BEDTIME PRN (Reason: Anxiety) Rx Instructions: Filled 08/03/21 for 30 day supply. lamotrigine 100 mg tablet 50 mg PO DAILY Rx Instructions: Patient has been taking 1/2 a tab daily. lithium carbonate 150 mg Capsule 150 mg PO DAILY Patient Comments: Patient has not stated this medication. Rx Instructions: Patient prescribed in 07/17/24. Reports she has not started this medication yet. quetiapine 400 mg Tablet 400 mg PO BEDTIME gabapentin 100 mg Capsule 100 mg PO TID Patient Comments: New Medication prescribed by outpatient provider. Stand Alone Forms: Patient Portal Discharge page Patient Education: Bipolar Disorder (ED), Bipolar Disorder (DC), Cognitive Disorders after Traumatic Brain Injury (ED), Cognitive Disorders after Traumatic Brain Injury (DC) Print Language: Turkmen
== END 2024-08-26 23:59 | disposition home or self-care (01) ==
LOC: HO.PHPA 11:15
PROVIDERS: Visit Provider Psychiatry & Neurology Psychiatry
DX: F31.30 Bipolar disorder, current episode depressed, mild or moderate severity, unspecified (principal); F43.10 Post-traumatic stress disorder, unspecified; F07.81 Postconcussional syndrome; F13.20 Sedative, hypnotic or anxiolytic dependence, uncomplicated; Z79.899 Other long term (current) drug therapy
CPT/HCPCS: 90853

== ENCOUNTER → 2024-10-11 11:15 | Outpatient (BNV) | payer BC, SELFPAY | PROVIDERS: Visit Provider Psychiatry & Neurology Psychiatry | DX: F43.10 Post-traumatic stress disorder, unspecified (principal); S06.9XAS Unspecified intracranial injury with loss of consciousness status unknown, sequela; F06.70 Mild neurocognitive disorder due to known physiological condition without behavioral disturbance; F31.30 Bipolar disorder, current episode depressed, mild or moderate severity, unspecified | CPT/HCPCS: 90792; 99214 ==

== ENCOUNTER 2024-10-25 14:20 | Emergency (ER) | payer BC, SELFPAY ==
--- NOTE | ~2024-10-25 | XR_ITS ---
CLINICAL HISTORY: abd discomfort 2 view chest x-ray Comparison: None Findings: The lungs are clear. Normal size heart. No acute fracture. Fixation hardware in the left clavicle. IMPRESSION: 1. No acute findings. This document has been electronically signed by: Branden Arzate MD on 10/25/2024 18:05:21
[2024-10-25 14:22] VITALS: BP 137/102; PULSE 86; RESP 18; TEMP 36.3; O2SAT 99; BMI 17.4
--- NOTE | 2024-10-25 14:23 | ED_ITS ---
HPI - General Adult General Chief complaint: General Medical Stated complaint: Work Up For Nutrition Time Seen by Provider: 10/25/24 16:11 History of Present Illness ED Provider: Art Krishnan MD HPI narrative: [age] female bipolar, TBI, PTSD with weight loss had a partial program. In August the patient weighed 130+ currently 105. Feels early satiety and upper abdominal discomfort fullness after eating. No clear reflux symptoms. No nausea or vomiting. Patient has stopped the prescribed amphetamine for 4 days no change in the symptoms. No skin changes mild abdominal discomfort diffusely an upper. Moving her bowels. Related Data Home Medications ?Medication ?Instructions ?Recorded ?Confirmed fludrocortisone 0.1 mg tablet 0.2 mg PO DAILY 08/03/21 10/11/24 sumatriptan succinate 100 mg tablet See Rx Instructions .Route 08/03/21 10/11/24 .COMPLEX PRN Migraine Headache omeprazole 10 mg capsule,delayed 10 mg PO DAILY 08/09/24 10/11/24 release Previous Rx's ?Medication ?Instructions ?Recorded ergocalciferol (vitamin D2) 1,250 1,250 mcg PO QWEEK #8 caps 08/26/24 mcg (50,000 unit) capsule (Vitamin D2) gabapentin 100 mg capsule 100 - 200 mg (1 - 2 x 100 mg) PO 08/26/24 BID #60 caps quetiapine 300 mg tablet 300 mg PO BEDTIME #14 tabs 08/26/24 lisdexamfetamine 10 mg capsule 10 mg PO QAM #30 caps 10/11/24 clonazepam 0.5 mg tablet 0.25 - 0.5 mg (0.5 - 1 x 0.5 mg) 10/16/24 PO DAILY #10 tabs memantine 7 mg capsule 7 mg PO .qhs #30 ea 10/16/24 sprinkle,extended release 24hr gabapentin 300 mg capsule 300 mg PO BEDTIME #14 caps 10/18/24 alprazolam 0.25 mg tablet (Xanax) 0.25 mg PO BEDTIME 14 days #14 tabs 10/25/24 aripiprazole 2 mg tablet 4 mg (2 x 2 mg) PO BEDTIME 14 days 10/25/24 #28 tabs lamotrigine 25 mg tablet 50 mg (2 x 25 mg) PO DAILY 14 days 10/25/24 #28 tabs Allergies Allergy/AdvReac Type Severity Reaction Status Date / Time topiramate [From Topamax] AdvReac Leukopenia Verified 10/25/24 14:24 [facility] Past Medical History Medical History (Updated 10/26/24 @ 00:00 by Background Daemon) Hyperlipidemia Pineal gland cyst Syncope History of seizure Clavicle fracture TBI (traumatic brain injury) Maxillary sinus fracture Orbital fracture Fracture of hand Fracture, clavicle History of recurrent miscarriages Migraine Asthma Postural orthostatic tachycardia syndrome Social History Social History Household Members: Spouse Comment: DC 08/26/24 Patient Tobacco Use Status: Never used Tobacco Substance Use Type: Marijuana Physical Exam ED Vital Signs: Vital Signs - 24 hr 10/25/24 14:22 10/25/24 15:54 10/25/24 18:01 Temperature 97.4 F 98.7 F 98.2 F Pulse Rate 86 61 67 Respiratory Rate 18 16 16 Blood Pressure 137/102 H 140/89 H 126/95 H Pulse Oximetry 99 98 97 Oxygen Delivery Method Room Air Room Air Room Air BMI result Body Mass Index 17.4 Const Other: EXAM: Gen: Alert, awake, well appearing, well hydrated. Thin but not cachectic. Not ill or toxic looking Head: Atraumatic Eyes: Anicteric, Normal conjunctiva. ENT: Moist mucosa, no pallor. ? Neck: Supple. Respiratory: Breathing comfortably, No distress.Clear to auscultation bilaterally, symmetric chest expansion, No wheeze, rales, ronchi. Cardiovascular: Regular rate and rhythm. No murmurs or rub. Well perfused periphery, warm extremities. No edema. ? Abdominal: Soft, no objective distension. No palpable masses or obvious organomegaly. Mild epigastric tenderness, no guarding, no rebound tenderness or other peritoneal findings. : No flank tenderness. Neuro: Alert. Gross movement of all extremities intact. ? Vital signs: See flowsheet Course Course Course Narrative: RME, this is a rapid medical exam performed by Pino Peñaloza please refer to primary provider for complete H&P- 28 year old female presents for evaluation of postprandial abdominal pain. She reports 2 months of poor PO intake and an approximately 20 pound weight loss in the last month. She also has had several syncopal episodes, most recently yesterday. Plan for labs, UA, EKG Medical Decision Making Medical Decision Making [facility] Narrative: This is 28-year-old who is currently in partial psychiatric treatment with multiple new psychotropic medications introduced in the past weeks. Early satiety weight loss abdominal discomfort. Biliary ultrasound is normal and reassuring. No significant evidence of cachexia, severe nutritional or hydration deficiency. No indication for admission. Orally hydrating. ECG reassuring as well. No clinical orthostasis. At 06:20 I myself repeated her standing BP which was 130 systolic, heart rate mid 90s regular. She does have a history of POTS which may be in combination with mild dehydration reason for syncopal episode. Yesterday. No clinical symptomatology to suggest DVT doubt PE. Most likely weight loss secondary to recent psychiatric medication, polypharmacy. Additional etiologies may need to be elucidated as an outpatient including swallow study or other GI evaluation. Lab Data [facility] Lab Attestation statement: I reviewed the patient's lab results. 10/25/24 14:54 10/25/24 14:54 Labs: Lab Results 10/25/24 10/25/24 Range/Units 14:54 16:35 WBC 5.0 (4.8-10.8) X10*3/uL RBC 4.48 (4.20-5.50) X10*6/uL Hgb 14.1 (12.0-16.0) g/dl Hct 40.1 (37.0-47.0) % MCV 89.5 (80.0-98.0) fL MCH 31.5 (27.0-33.0) pg MCHC 35.2 H (31.0-35.0) g/dl RDW 12.5 (11.0-16.0) % Plt Count 225 (160-400) X10*3/uL MPV 9.4 (9.4-12.3) fL Immature Gran % (Auto) 0.2 (0.0-0.4) % Neut % (Auto) 51.0 (45-73) % Lymph % (Auto) 40.5 H (20-40) % [place] % (Auto) 6.3 (2-11) % Eos % (Auto) 1.0 (0-4) % Baso % (Auto) 1.0 (0-2) % Lymph # (Auto) 2.0 (1.2-4.9) X10*3/uL [place] # (Auto) 0.3 (0.1-1.2) X10*3/uL Eos # (Auto) 0.1 (0.0-0.4) X10*3/uL Baso # (Auto) 0.1 (0.0-0.2) X10*3/uL Abs Immat Gran (auto) 0.01 (0.00-0.03) X10*3/uL Absolute Neuts (auto) 2.5 (2.0-8.3) x10*3/uL Absolute Nucleated RBC 0.000 (0.0-0.012) X10*3/uL Nucleated RBC % (auto) 0.0 (0.0-0.2) /100WBC Sodium 144 (135-145) mmol/L Potassium 3.5 (3.3-5.1) mmol/L Chloride 109 H (96-108) mmol/L Carbon Dioxide 29 (22-29) mmol/L Anion Gap 10 L (12-20) BUN 9 (9-16) mg/dL Creatinine 0.70 (0.5-1.4) mg/dL Estim Creat Clear Calc 90.9 Estimated GFR > 60 Random Glucose 100 (60-115) mg/dL Calcium 9.4 (8.4-10.2) mg/dL Magnesium 2.2 (1.6-2.6) mg/dL Total Bilirubin 0.5 (0.0-1.0) mg/dL Direct Bilirubin 0.2 (0.0-0.5) mg/dL AST 17 (5-31) U/L ALT 11 (0-31) U/L Alkaline Phosphatase 62 (39-117) U/L Troponin I High Sens < 2.7 (<3.5-17.0) ng/L Total Protein 6.9 (6.5-8.0) g/dL Albumin 4.8 (3.5-5.0) g/dL Lipase 35 (8-78) U/L Beta HCG, Quant < 2 mIU/mL Urine Color Yellow Urine Appearance Turbid Urine pH 7.5 (5.0-9.0) Ur Specific [place] 1.015 (1.005-1.025) Urine Protein Negative (Neg-Trace) mg/dL Urine Glucose (UA) Negative (Negative) mg/dL Urine Ketones Negative (Negative) mg/dL Urine Blood Negative (Negative) Urine Nitrite Negative (Negative) Ur Leukocyte Esterase Small (1+) H (Negative) Urine RBC 0-2 (0-2) /HPF Urine WBC 21-50 H (0-5) /HPF Ur Squamous Epith Cells 11-20 (0-2) /HPF Urine Bacteria 3+ (None Seen) Hyaline Casts 0-2 (0-2) /LPF Independent Interpretation I performed an independent interpretation of an: EKG (Sinus rhythm rate 67 QTC 431. Incomplete right bundle. No acute ischemic changes. No ectopy ) Discharge Plan Discharge Clinical Impression: Syncope Patient Disposition: Home, Self-Care Instructions: Syncope (ED) Additional Instructions: _ DISCHARGE DIAGNOSES: Syncopal or passing out episode of unclear cause. Perhaps mild dehydration decreased appetite unclear etiology HISTORY OF PRESENTATION: ?Passing out weight loss over several weeks to months. Chronic early satiety decreased appetite EMERGENCY DEPARTMENT COURSE,TESTS, TREATMENTS: While in the ED today you had a blood tests which were reassuring including electrolytes. EKG, this was normal and reassuring, you were able to hydrate orally which was reassuring. You had an ultrasound of your right upper quadrant which showed no signs of acute biliary pathology or gallstone issues. Your blood pressure was normal on repeat including standing. DISCHARGE MEDICATIONS: ?[We have made no changes to your regular medication regimen] FOLLOW-UP: ?Call your primary or general physician soon as possible to discuss your symptoms, your ED visit and to discuss follow up plans Discussed with your psychiatry team and primary physician for possible outpatient follow up for further elucidation or testing of your chronic weight loss and appetite issues INSTRUCTIONS ?& RETURN PRECAUTIONS: If any symptoms change first call your primary physician, if it is after-hours your primary doctors office should have a provider press set up person you can speak with. If the symptoms are severe or very concerning to you then call 911 or return to the ED. Art Krishnan MD Emergency Physician [facility] Prescriptions: No Action fludrocortisone 0.1 mg Tablet 0.2 mg PO DAILY sumatriptan succinate 100 mg Tablet See Rx Instructions .ROUTE .COMPLEX PRN (Reason: Migraine Headache) Rx Instructions: Take on tab as needed. May repeat in 2 hours if ineffective. Do not exceed 2 doses per 24 hrs omeprazole 10 mg Capsule,Delayed Release(Dr/Ec) 10 mg PO DAILY Patient Comments: Patient aware to take this medication an hour prior to taking other medications and prior to eating. gabapentin 100 mg capsule 100 - 200 mg PO BID Qty: 60 0RF Patient Comments: Patient stated she has not been taking this. Rx Instructions: in AM and afternoon ergocalciferol (vitamin D2) [Vitamin D2] 1,250 mcg (50,000 unit) capsule 1,250 mcg PO QWEEK Qty: 8 0RF Rx Instructions: Take once a week. quetiapine 300 mg tablet 300 mg PO BEDTIME Qty: 14 0RF lisdexamfetamine 10 mg capsule 10 mg PO QAM Qty: 30 0RF Rx Instructions: take no more than 3 times a week ( or less) preferably not more frequent than q other day. Partial Fill upon patient request. clonazepam 0.5 mg tablet 0.25 - 0.5 mg PO DAILY Qty: 10 0RF memantine 7 mg capsule,sprinkle,ER 24hr 7 mg PO .qhs Qty: 30 0RF gabapentin 300 mg capsule 300 mg PO BEDTIME Qty: 14 0RF lamotrigine 25 mg tablet 50 mg PO DAILY 14 Days Qty: 28 0RF aripiprazole 2 mg tablet 4 mg PO BEDTIME 14 Days Qty: 28 0RF alprazolam [Xanax] 0.25 mg Tablet 0.25 mg PO BEDTIME 14 Days Qty: 14 0RF Interventions: ED Discharge Assessment Last Done: 10/25/24 19:03 Discharge Date/Time: 10/25/24 19:04 Print Language: Urdu
--- NOTE | 2024-10-25 14:24 | ECG_ITS ---
Test Reason : Weakness Blood Pressure : */* mmHG Vent. Rate : 85 BPM Atrial Rate : 85 BPM P-R Int : 164 ms QRS Dur : 96 ms QT Int : 416 ms P-R-T Axes : 70 59 66 degrees QTcB Int : 495 ms Poor data quality Sinus rhythm Normal ECG When compared with ECG of 16-Aug-2024 15:15, No significant changes seen Referred By: Jerry Peñaloza Electronically Signed By: Zachariah Knox
[2024-10-25 14:59] LABS: MANUAL DIFF FLAG NO
[2024-10-25 15:05] LABS: Basophils Absolute Auto 0.1 X10*3/uL (0.0-0.2); Eosinophils Absolute Auto 0.1 X10*3/uL (0.0-0.4); Hematocrit 40.1 % (37.0-47.0); Hemoglobin 14.1 g/dl (12.0-16.0); Imm Gran Abs Auto 0.01 X10*3/uL (0.00-0.03); Imm Gran Pct Auto 0.2 % (0.0-0.4); Lymphocytes Percent Auto 40.5 % (20-40); Mean Corpuscular HGB Conc 35.2 g/dl (31.0-35.0); Mean Corpuscular Hemoglobin 31.5 pg (27.0-33.0); Mean Corpuscular Volume 89.5 fL (80.0-98.0); Mean Platelet Volume 9.4 fL (9.4-12.3); Monocytes Absolute Auto 0.3 X10*3/uL (0.1-1.2); Monocytes Percent Auto 6.3 % (2-11); Neutrophils Absolute Auto 2.5 x10*3/uL (2.0-8.3); Platelet Count 225 X10*3/uL (160-400); Red Blood Count 4.48 X10*6/uL (4.20-5.50); Red Cell Distribution Width 12.5 % (11.0-16.0)
[2024-10-25 15:20] LABS: Alanine Aminotransferase 11 U/L (0-31); Albumin Level 4.8 g/dL (3.5-5.0); Alkaline Phosphatase 62 U/L (39-117); Anion Gap 10 (12-20); Aspartate Amino Transferase 17 U/L (5-31); Bilirubin Direct 0.2 mg/dL (0.0-0.5); Bilirubin Total 0.5 mg/dL (0.0-1.0); Blood Urea Nitrogen 9 mg/dL (9-16); Calcium 9.4 mg/dL (8.4-10.2); Carbon Dioxide 29 mmol/L (22-29); Chloride 109 mmol/L (96-108); Creatinine Clr Calc Pharmacy 90.9; Estimated Glomerular Filt Rate > 60; Glucose Random 100 mg/dL (60-115); Lipase 35 U/L (8-78); Potassium 3.5 mmol/L (3.3-5.1); Sodium 144 mmol/L (135-145); Total Protein 6.9 g/dL (6.5-8.0)
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
[2024-10-25 15:28] LABS: HCG Quantitative < 2 mIU/mL; Troponin-I High Sensitivity < 2.7 ng/L (<3.5-17.0)
[2024-10-25 15:54] VITALS: BP 140/89; PULSE 61; RESP 16; TEMP 37.1; O2SAT 98
--- NOTE | 2024-10-25 16:31 | PC.NURSE ---
Pt is calm. explaining exterminator helper decreased PO intake d/t abd pain with trials. Has been in partial programs x 2 since august and has undergone mult med changes. moist mm.
[2024-10-25 16:42] LABS: Appearance Urine Turbid; Color Urine Yellow; Glucose Urine UA Negative (Negative); Leukocyte Esterase Urine Small (1+) (Negative); Nitrite Urine Negative (Negative); PH 7.5 (5.0-9.0); Specific Gravity - Urine 1.015 (1.005-1.025); UMIC TRIGGER UACC YES; Urine Blood Negative (Negative); Urine Ketones Negative (Negative); Urine Protein Negative (Neg-Trace)
[2024-10-25 16:45] LABS: Bacteria Urine 3+ (None Seen); Hyaline Casts Urine 0-2 /LPF (0-2); RBC Urine 0-2 /HPF (0-2); UACC Culture Trigger YES; WBC Urine 21-50 /HPF (0-5)
[2024-10-25 17:20] LABS: Magnesium 2.2 mg/dL (1.6-2.6)
[2024-10-25 18:01] VITALS: BP 126/95; PULSE 67; RESP 16; TEMP 36.8; O2SAT 97
--- NOTE | 2024-10-25 18:11 | PC.NURSE ---
[facility], patient's , asking if patient can receive nutritional IV while in ED.
[2024-10-25 19:03] VITALS: BP 126/95; PULSE 67; RESP 16; TEMP 36.8; O2SAT 97
== END 2024-10-25 19:04 | disposition home or self-care (01) ==
PROVIDERS: Physician Assistant; Emergency Provider Emergency Medicine
DX: R55 Syncope and collapse (principal); R53.1 Weakness; R10.2 Pelvic and perineal pain; Z79.899 Other long term (current) drug therapy
CPT/HCPCS: 36415; 71046; 80048; 80076; 81001; 83690; 83735; 84484; 84702; 85025; 87086; 93005; 99283; 99284

== ENCOUNTER → 2024-10-25 14:24 | Outpatient (BNV) | payer BC, SELFPAY | PROVIDERS: Emergency Provider Emergency Medicine; Visit Provider Internal Medicine Cardiovascular Disease | DX: R53.1 Weakness (principal) | CPT/HCPCS: 93010 ==

== ENCOUNTER → 2024-10-25 17:02 | Outpatient (BNV) | payer BC, SELFPAY | PROVIDERS: Emergency Provider Emergency Medicine; Visit Provider Radiology Diagnostic Radiology | DX: R10.9 Unspecified abdominal pain (principal) | CPT/HCPCS: 71046 ==

== ENCOUNTER 2024-11-01 08:19 | Outpatient (REF) | payer BC, SELFPAY ==
--- OUTSIDE RECORDS SUMMARY | 2024-11-01 08:22 | XMS_ITS | Patient Health Record ---
Author Organization [employer] [facility] Address [address] [place] [address] Care Team Providers Care Financial Counselor Name Role Phone BOBJORY Neri Primary Care Provider Shelly Beal Unavailable [phone] Reason For Referral No Information Medications Medication SIG (Take, Route, Frequency, Duration) Notes Start Date End Date Status Fludrocortisone Acetate .5mg 2 tabs Active [place] 400MG Active SEROquel 200MG Active Social History AUDIT-C (Standard) Question Answer Notes Did you have a drink containing alcohol in the p ast year? No Points 0 Interpretation Negative Problems Problem Type SNOMED Code ICD Code Onset Dates Problem Status W/U Status Risk Notes Problem Excessive and frequent menstruation (514374195) Excessive and frequent menstruation with regular cycle (N92.0) Active confirmed Problem Bipolar disorder (65958886) Bipolar disorder, unspecified (F31.9) Active confirmed Problem Anxiety disorder (683904380) Anxiety disorder, unspecified (F41.9) Active confirmed Problem Post-traumatic stress disorder, unspecified (F43.10) Active confirmed Problem Irregular Menstruation (20715523) Other specified irregular menstruation (N92.5) Active confirmed Plan Of Treatment Pending Test Test Name Order Date TSH 06/23/2017 PT AND PTT 06/23/2017 von Willebrand Factor (vWF) Ag 8 THIN PREP,HPV IF ASCUS, CT/GC (21-29YR) 06/23/2017 Next Appt Details Provider Name:Shelly mesa, 04/24/2025 09:40:00 AM, [address], [address], [place], [address], Insurance Providers Payer Name Payer Address Payer Phone Subscriber Number Group Number Insured Name Patient Relationship to Insured Coverage Start Date Coverage End Date [place] [address] [place] [address] JOHNSON CARNEY Self - patient is the [...]
--- NOTE | 2024-11-01 08:24 | ECG_ITS ---
Test Reason : e22.1 Blood Pressure : */* mmHG Vent. Rate : 69 BPM Atrial Rate : 69 BPM P-R Int : 160 ms QRS Dur : 102 ms QT Int : 396 ms P-R-T Axes : 56 23 40 degrees QTcB Int : 424 ms Normal sinus rhythm with sinus arrhythmia Incomplete right bundle branch block Borderline ECG When compared with ECG of 25-Oct-2024 14:41, Premature ventricular complexes are no longer Present Incomplete right bundle branch block is now Present Referred By: Hafsa Hanson Electronically Signed By: IAN ULLOA MD
[2024-11-01 08:32] LABS: MANUAL DIFF FLAG NO
[2024-11-01 09:04] LABS: Basophils Percent Auto 0.6 % (0-2); Eosinophils Absolute Auto 0.1 X10*3/uL (0.0-0.4); Eosinophils Percent Auto 1.9 % (0-4); Hemoglobin 13.8 g/dl (12.0-16.0); Imm Gran Abs Auto 0.01 X10*3/uL (0.00-0.03); Imm Gran Pct Auto 0.3 % (0.0-0.4); Lymphocytes Absolute Auto 1.4 X10*3/uL (1.2-4.9); Lymphocytes Percent Auto 44.6 % (20-40); Mean Corpuscular HGB Conc 33.7 g/dl (31.0-35.0); Mean Corpuscular Hemoglobin 30.6 pg (27.0-33.0); Mean Corpuscular Volume 90.9 fL (80.0-98.0); Mean Platelet Volume 9.9 fL (9.4-12.3); Monocytes Absolute Auto 0.3 X10*3/uL (0.1-1.2); Monocytes Percent Auto 9.9 % (2-11); Neutrophils Absolute Auto 1.3 x10*3/uL (2.0-8.3); Neutrophils Percent Auto 42.7 % (45-73); Platelet Count 183 X10*3/uL (160-400); Red Blood Count 4.51 X10*6/uL (4.20-5.50); Red Cell Distribution Width 12.5 % (11.0-16.0); White Blood Count 3.1 X10*3/uL (4.8-10.8)
[2024-11-01 09:40] LABS: Anion Gap 12 (12-20); Blood Urea Nitrogen 9 mg/dL (9-16); C Reactive Protein < 0.04 mg/dL (< or = 0.50); Carbon Dioxide 24 mmol/L (22-29); Chloride 111 mmol/L (96-108); Estimated Glomerular Filt Rate > 60; Glucose Fasting 101 mg/dL (60-99); Sodium 143 mmol/L (135-145)
[2024-11-01 10:00] LABS: Free T4 (Free Thyroxine) 0.81 ng/dL (0.71-1.85); Thyroid Stimulating Hormone 1.18 uIU/mL (0.32-4.0)
[2024-11-02 09:08] LABS: Follicle Stimulating Hormone 7.2 mIU/mL; Lutenizing Hormone 11.1 mIU/mL; Prolactin 17.6 ng/mL
[2024-11-06 17:24] LABS: Prolactin Monomeric 14.4 ng/mL (3.2-25.2); Prolactin, Total 17.8 ng/mL
== END 2024-11-01 08:20 | disposition home or self-care (01) ==
LOC: HO.LAB 08:19
PROVIDERS: Visit Provider Psychiatry & Neurology Psychiatry
DX: E22.1 Hyperprolactinemia (principal); F50.9 Eating disorder, unspecified
CPT/HCPCS: 36415; 80048; 82550; 83001; 83002; 84146; 84439; 84443; 85025; 86140; 93005

== ENCOUNTER → 2024-11-01 08:24 | Outpatient (BNV) | payer BC, SELFPAY | PROVIDERS: Visit Provider Internal Medicine Cardiovascular Disease | DX: I45.10 Unspecified right bundle-branch block (principal); I49.9 Cardiac arrhythmia, unspecified | CPT/HCPCS: 93010 ==

== ENCOUNTER 2024-11-14 12:19 | Outpatient (REF) | payer BC, SELFPAY ==
--- OUTSIDE RECORDS SUMMARY | 2024-11-14 14:17 | XMS_ITS | Patient Health Record ---
[facility] Address [address] [place] [address] Care Team Providers Care Exhaust And Muffler Fitter Name Role Phone BOBJORY Neri Primary Care Provider Shelly Beal Unavailable [phone] Reason For Referral No Information Medications Medication SIG (Take, Route, Frequency, Duration) Notes Start Date End Date Status Fludrocortisone Acetate .5mg 2 tabs Active [place] 400MG Active SEROquel 200MG Active Social History AUDIT-C (Standard) Question Answer Notes Did you have a drink containing alcohol in the p ast year? No Points 0 Interpretation Negative Problems Problem Type SNOMED Code ICD Code Onset Dates Problem Status W/U Status Risk Notes Problem Excessive and frequent menstruation (692136580) Excessive and frequent menstruation with regular cycle (N92.0) Active confirmed Problem Bipolar disorder (42736613) Bipolar disorder, unspecified (F31.9) Active confirmed Problem Anxiety disorder (873637616) Anxiety disorder, unspecified (F41.9) Active confirmed Problem Post-traumatic stress disorder (07148228) Post-traumatic stress disorder, unspecified (F43.10) Active confirmed Problem Irregular Menstruation (97126304) Other specified irregular menstruation (N92.5) Active confirmed Plan Of Treatment Pending Test Test Name Order Date TSH 06/23/2017 PT AND PTT 06/23/2017 von Willebrand Factor (vWF) Ag 8 THIN PREP,HPV IF ASCUS, CT/GC (21-29YR) 06/23/2017 Next Appt Details Provider Name:Shelly mesa, 04/24/2025 09:40:00 AM, [address], [address], [place], [address], Insurance Providers Payer Name Payer Address Payer Phone Subscriber Number Group Number Insured Name Patient Relationship to Insured Coverage Start Date Coverage End Date [employer] [address] [place] [address] [phone] ROMMEL JOHNSON Self - patient is the insured Medical [...]
== END 2024-11-14 12:20 | disposition home or self-care (01) ==
LOC: HO.LAB 12:19
PROVIDERS: Visit Provider Psychiatry & Neurology Psychiatry
DX: Z13.89 Encounter for screening for other disorder (principal)

== ENCOUNTER 2024-11-15 07:58 | Outpatient (REF) | payer BC, SELFPAY ==
--- NOTE | 2024-11-15 | ECG_ITS ---
Test Reason : qtc prolongation Blood Pressure : */* mmHG Vent. Rate : 63 BPM Atrial Rate : 63 BPM P-R Int : 170 ms QRS Dur : 104 ms QT Int : 414 ms P-R-T Axes : 62 29 58 degrees QTcB Int : 423 ms Normal sinus rhythm Incomplete right bundle branch block Borderline ECG When compared with ECG of 01-Nov-2024 08:35, No significant change was found Referred By: Hafsa Hanson Electronically Signed By: IAN ULLOA MD
--- OUTSIDE RECORDS SUMMARY | 2024-11-15 08:01 | XMS_ITS | Patient Health Record ---
Author Organization [employer] Address [address] [place] [address] Care Team Providers Care Physician Office Rep Name Role Phone BOBJORY Neri Primary Care Provider Shelly Beal Unavailable [phone] Reason For Referral No Information Medications Medication SIG (Take, Route, Frequency, Duration) Notes Start Date End Date Status Fludrocortisone Acetate .5mg 2 tabs Active [place] 400MG Active SEROquel 200MG Active Social History AUDIT-C (Standard) Question Answer Notes Did you have a drink containing alcohol in the p ast year? No Points 0 Interpretation Negative Problems Problem Type SNOMED Code ICD Code Onset Dates Problem Status W/U Status Risk Notes Problem Excessive and frequent menstruation (819612768) Excessive and frequent menstruation with regular cycle (N92.0) Active confirmed Problem Bipolar disorder (67886347) Bipolar disorder, unspecified (F31.9) Active confirmed Problem Anxiety disorder (108980728) Anxiety disorder, unspecified (F41.9) Active confirmed Problem Post-traumatic stress disorder (90386810) Post-traumatic stress disorder, unspecified (F43.10) Active confirmed Problem Irregular Menstruation (89514459) Other specified irregular menstruation (N92.5) Active confirmed Plan Of Treatment Pending Test Test Name Order Date TSH 06/23/2017 PT AND PTT 06/23/2017 von Willebrand Factor (vWF) Ag 8 THIN PREP,HPV IF ASCUS, CT/GC (21-29YR) 06/23/2017 Next Appt Details Provider Name:Shelly mesa, 04/24/2025 09:40:00 AM, [address], [address], [place], [address], Insurance Providers Payer Name Payer Address Payer Phone Subscriber Number Group Number Insured Name Patient Relationship to Insured Coverage Start Date Coverage End Date [employer] [place] [address] [place] [address] ROMMEL JOHNSON Self - patient is the [...]
[2024-11-15 08:13] LABS: MANUAL DIFF FLAG NO
[2024-11-15 08:48] LABS: Basophils Percent Auto 0.9 % (0-2); Eosinophils Absolute Auto 0.2 X10*3/uL (0.0-0.4); Eosinophils Percent Auto 3.5 % (0-4); Hematocrit 41.2 % (37.0-47.0); Imm Gran Abs Auto 0.01 X10*3/uL (0.00-0.03); Imm Gran Pct Auto 0.2 % (0.0-0.4); Lymphocytes Absolute Auto 1.9 X10*3/uL (1.2-4.9); Lymphocytes Percent Auto 44.3 % (20-40); Mean Corpuscular Hemoglobin 30.9 pg (27.0-33.0); Mean Corpuscular Volume 90.9 fL (80.0-98.0); Mean Platelet Volume 9.6 fL (9.4-12.3); Monocytes Absolute Auto 0.4 X10*3/uL (0.1-1.2); Monocytes Percent Auto 9.7 % (2-11); Neutrophils Absolute Auto 1.8 x10*3/uL (2.0-8.3); Neutrophils Percent Auto 41.4 % (45-73); Platelet Count 240 X10*3/uL (160-400); Red Blood Count 4.53 X10*6/uL (4.20-5.50); Red Cell Distribution Width 12.3 % (11.0-16.0); White Blood Count 4.3 X10*3/uL (4.8-10.8)
[2024-11-15 09:15] LABS: Lactate Dehydrogenase 154 U/L (122-220)
== END 2024-11-15 07:59 | disposition home or self-care (01) ==
LOC: HO.LAB 07:58
PROVIDERS: Visit Provider Psychiatry & Neurology Psychiatry
DX: D70.9 Neutropenia, unspecified (principal)
CPT/HCPCS: 36415; 82232; 83615; 85025; 93005

== ENCOUNTER → 2024-11-15 08:18 | Outpatient (BNV) | payer BC, SELFPAY | PROVIDERS: Visit Provider Internal Medicine Cardiovascular Disease | DX: I45.10 Unspecified right bundle-branch block (principal) | CPT/HCPCS: 93010 ==

== ENCOUNTER 2024-11-15 10:45 | Outpatient (RCR) | payer BC, SELFPAY ==
[2024-10-11 13:07] VITALS: BMI 18.1
[2024-10-11 13:08] VITALS: BP 127/82; PULSE 56; TEMP 36.5
--- NOTE | 2024-10-11 14:10 | HO.PHP ---
This clinician was informed that the patient reported SI with a plan. At the time that this clinician was going to pull the client to assess her the doctor from the Program called her and this clinician informed the doctor about the SI with the plan and intent, so she can addressed it during her session. The doctor agreed.
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
--- NOTE | 2024-10-14 13:10 | HO.PHP ---
This clinician met with Corry Khan) after she reported during the third group that was feeling in crisis. The clinician assessed her and she reported to be going through a manic episode but to have a lot of protective factors in place already such as staying with her parents instead of been alone (reported that his will be working at night) and to be utilizing some fidgets to address her anxiety. She refused to be evaluated by Crisis and indicated that her mother saw her and noticed that she was not doing well and indicated that definitely she will not be alone tonight.
--- NOTE | 2024-10-16 15:02 | HO.PHP ---
During group at roughly 12:00, Corry (uses they/their pronouns) reported thoughts of suicide with a plan but denied intent. Bill Poster Installer checked in with pt after group to assess for safety, Corry reported they are struggling with SI and will getting fleeting thoughts to use the gun owned by her [id number]. Stated they know they do not have access to the gun and they do not want to act on the thoughts because of how it would hurt Corry's partner and Corry's mother. Corry expressed insight into their current symptoms, stated they feel they are currently in a manic bipolar, feels shaky inside , feel they are internalizing it can not relax. Reports the intrusive thought of the gun feels obsessive and the image pops into my mind when feeling down. Reported a decreased appetite, struggling to sit still, mixed with feeling stuck and unable to do simple things like move or brush teeth. Stated they have a safety plan in place that Corry's partner Betty put in place that includes Corry's parents. The plan is to prevent Corry from being alone and has details of who Corry will be with each evening until Corry's partner gets home. Corry reports feeling safe when with family, with partner Betty and when at [facility]. Reports they have been inpatient before and wonders if they may need to go inpatient next week when Corry's parents are out of town. Corry reports they text the crisis number occasionally when their SI increases and reports it as helpful. Corry was also open to knowing more about respite and was provided with info by this blurb writer. Corry stated they spoke with PHP provider today and Corry has a plan to start new meds tonight. Pt was able to to verbalize several coping tools and supports they will utilize if SI increases when not in PHP. Pt denied intent and means to act on SI thoughts. Tonight pt plans to have dinner with parents and watch the hockey game then spend the night with their partner. Reports they will not be alone.
--- NOTE | 2024-10-17 08:34 | HO.PHP ---
Addendum entered by Ohpelia Chao [facility] 10/17/24 08:36: Reviewed on 10/10/24 Original Note: This case was opened and review on treatment teams.
--- NOTE | 2024-10-17 15:56 | HO.PHP ---
This case was opened and reviewed on treatment teams.
--- NOTE | 2024-10-17 18:09 | HO.PHPPROGNO ---
Subjective Subjective Date of Service: 10/16/24 Reason For Visit: bipolar,PTSD Interim History: Patient requesting to be seen by provider. Starting on Latuda in the evening, they will fall asleep as usual at 8pm but then finds themselves up by 10pm. ?I am tired but my brain is not tired?. They report waking feeling shaky and anxious, racing thoughts, distracted. But says later in the morning this does get worse. All morning I am internally shaking and distracted . He also complains of ?just physically staring out space And feeling detached, often lost in thoughts, or able to access their thoughts. They report issues with paranoia, mood fluctuations, unpredictability, ?take everything super personal and not feeling trusting of others?. Reports a lot of mood lability, with crying and laughing episodes laughing lasting a few minutes at a time. They feel they spend most or a majority of their time in a hypomanic, state. They relays some issues with disorganized eating behaviors small part of behaviors being purging, the overwhelming majority of their eating habits appear to be related to lack of appetite and possible neuro divergent/sensory issues and preferences. Denies current SI, HI, AH, VH. Medication Compliance: Yes Side effects from medications: No Attending Groups: Yes Review of Systems Acute medical concerns: No Mental Status Exam Mental Status Exam Narrative: Alert, oriented, in no acute distress. Calm, cooperative, engaged, well-related.No psychomotor agitation or neurovegetative retardation. Eye contact intense, decreased blinking. Mood depressed, affect constricted but brighter than expected, some incongruency. Speech normal. Thought process logical, linear, coherent. Thought content related to stressors, transient hopelessness, denies current SI. No HI. No paranoia or delusional content elicited. No evidence of psychosis. Insight and judgment - fair but adequate. Diagnostics Vital Signs (24Hr): BMI result Body Mass Index 18.1 Assessment & Plan Assessment & Plan (1) Bipolar affective disorder, depressed: Status: Acute Code(s): F31.30 - Bipolar disorder, current episode depressed, mild or moderate severity, unspecified (2) Mild neurocognitive disorder due to traumatic brain injury: Status: Acute Code(s): S06.9XAS - Unspecified intracranial injury with loss of consciousness status unknown, sequela; F06.70 - Mild neurocognitive disorder due to known physiological condition without behavioral disturbance (3) Complex posttraumatic stress disorder: Status: Acute Code(s): F43.10 - Post-traumatic stress disorder, unspecified Plan Continue PHP hold Latuda start Abilify 2 mg qhs start lamotrigine 25 mg qd switch off Xanax (0.25 mg qhs) and start clonazepam 0.25-0.5 mg qhs start memantine ER 7 mg qhs for treating traumatic brain injury (as nootropic for cognitive enhancing effects, neuroprotective agent) continue Seroquel 300 mg qhs continue other regular medications? Routine lab work ordered as indicated EKG, routine for baseline QTc for medication considerations as indicated UDS as indicated VS reviewed: afebrile, BP 127/82;?56 bpm Continue to monitor as per protocol Patient educated on: diagnosis and medication risk/benefits Informed Consent: understands Reason for contiued partial hosp. stay Substantial Risk for: inability to function, rapid decompensation and med/psych decompensation Certification I certify that partial hospital treatment is medically necessary due to the symptoms and problems resulting from the patient's mental illness and the failure to treat the patient at the partial hospital level of care would likely result in the patient requiring inpatient psychiatric care which could not be prevented at a less intensive level of care. Total time managing care of this patient today __30__ minutes. Discharge Plan Discharge Attending provider: Hafsa Hanson Medications: New lurasidone 20 mg tablet 20 mg PO QPM Qty: 30 0RF Rx Instructions: must administer with food (at least 350 calories) clonazepam 0.5 mg tablet 0.25 - 0.5 mg PO DAILY Qty: 10 0RF memantine 7 mg capsule,sprinkle,ER 24hr 7 mg PO .qhs Qty: 30 0RF aripiprazole 2 mg tablet 2 mg PO BEDTIME Qty: 14 0RF lamotrigine 25 mg tablet 25 mg PO DAILY 14 Days Qty: 14 0RF Continued fludrocortisone 0.1 mg Tablet 0.2 mg PO DAILY sumatriptan succinate 100 mg Tablet See Rx Instructions .ROUTE .COMPLEX PRN (Reason: Migraine Headache) Rx Instructions: Take on tab as needed. May repeat in 2 hours if ineffective. Do not exceed 2 doses per 24 hrs omeprazole 10 mg Capsule,Delayed Release(Dr/Ec) 10 mg PO DAILY Patient Comments: Patient aware to take this medication an hour prior to taking other medications and prior to eating. gabapentin 300 mg capsule 300 mg PO BEDTIME Qty: 14 0RF ergocalciferol (vitamin D2) [Vitamin D2] 1,250 mcg (50,000 unit) capsule 1,250 mcg PO QWEEK Qty: 8 0RF Rx Instructions: Take once a week. quetiapine 300 mg tablet 300 mg PO BEDTIME Qty: 14 0RF alprazolam [Xanax] 0.25 mg Tablet 0.25 mg PO BEDTIME lisdexamfetamine 10 mg capsule 10 mg PO QAM Qty: 30 0RF Rx Instructions: take no more than 3 times a week ( or less) preferably not more frequent than q other day. Partial Fill upon patient request. No Action gabapentin 100 mg capsule 100 - 200 mg PO BID Qty: 60 0RF Patient Comments: Patient stated she has not been taking this. Rx Instructions: in AM and afternoon Print Language: [place] Islander
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
--- NOTE | 2024-10-21 10:15 | P.PNPSP_ITS ---
Subjective Subjective Date of Service: 10/21/24 Reason For Visit: bipolar,PTSD Interim History: Checking in about problems with ongoing med changes and labile mood- loss of effect of vyvanse since med changes lost 7lb since 10/10 eats a meal day- No ongoing crying since Monday-but thinks could happen again deep depression and numbness back- SI- has plan but no intent- no change to intent- and no accesiblity to plan am meds interfering with being awake/tired latuda /lamotrigine Reviewed with nursing and clinician- Medication Compliance: Yes Side effects from medications: Yes (unclear what is doing what- or having what e ffect) Attending Groups: Yes Review of Systems Acute medical concerns: No Medical Review of Systems: changed Review of Systems: more fatigued- lessened effect reported of vyvanse Mental Status Exam Mental Status Exam Patient Appearance: Well Grooomed and Appropriate Patient Orientation: Person, Place, Time and Situation Level of Consciousness: Awake and Appropriate Patient Behavior: Appropriate, Cooperative and Good Eye Contact Mood Description: Calm Affect Description: Blunted Ability to Follow Directions: Good Speech Pattern: Clear and Appropriate Perceptual Disturbances: Derealization Thought Process: Intact and Goal Oriented Thought Content: positive for Intact, positive for Goal Oriented and positive for Suicidal Ideation (no intent, no access to plan) Depressive Symptoms: Significant Weight Loss Judgement: Good Diagnostics Vital Signs (24Hr): BMI result Body Mass Index 18.1 Assessment & Plan Assessment & Plan (1) Complex posttraumatic stress disorder: Status: Acute Code(s): F43.10 - Post-traumatic stress disorder, unspecified (2) Mild neurocognitive disorder due to traumatic brain injury: Status: Acute Code(s): S06.9XAS - Unspecified intracranial injury with loss of consciousness status unknown, sequela; F06.70 - Mild neurocognitive disorder due to known physiological condition without behavioral disturbance (3) Bipolar affective disorder, depressed: Status: Acute Code(s): F31.30 - Bipolar disorder, current episode depressed, mild or moderate severity, unspecified Plan move lamotrigine to hs and latuda to dinner- continue other meds as per dr Hanson plan- unclear goals of plan to this provider or to patient who can't always retain information verbally due to TBI Patient educated on: medication risk/benefits Informed Consent: understands Reason for contiued partial hosp. stay Substantial Risk for: harm to self and rapid decompensation Certification I certify that partial hospital treatment is medically necessary due to the symptoms and problems resulting from the patient's mental illness and the failure to treat the patient at the partial hospital level of care would likely result in the patient requiring inpatient psychiatric care which could not be prevented at a less intensive level of care. Total time managing care of this patient today ____ minutes. Discharge Plan Discharge Attending provider: Hafsa Hanson Medications: New lurasidone 20 mg tablet 20 mg PO QPM Qty: 30 0RF Rx Instructions: must administer with food (at least 350 calories) clonazepam 0.5 mg tablet 0.25 - 0.5 mg PO DAILY Qty: 10 0RF memantine 7 mg capsule,sprinkle,ER 24hr 7 mg PO .qhs Qty: 30 0RF aripiprazole 2 mg tablet 2 mg PO BEDTIME Qty: 14 0RF lamotrigine 25 mg tablet 25 mg PO DAILY 14 Days Qty: 14 0RF Continued fludrocortisone 0.1 mg Tablet 0.2 mg PO DAILY sumatriptan succinate 100 mg Tablet See Rx Instructions .ROUTE .COMPLEX PRN (Reason: Migraine Headache) Rx Instructions: Take on tab as needed. May repeat in 2 hours if ineffective. Do not exceed 2 doses per 24 hrs omeprazole 10 mg Capsule,Delayed Release(Dr/Ec) 10 mg PO DAILY Patient Comments: Patient aware to take this medication an hour prior to taking other medications and prior to eating. gabapentin 100 mg capsule 100 - 200 mg PO BID Qty: 60 0RF Patient Comments: Patient stated she has not been taking this. Rx Instructions: in AM and afternoon ergocalciferol (vitamin D2) [Vitamin D2] 1,250 mcg (50,000 unit) capsule 1,250 mcg PO QWEEK Qty: 8 0RF Rx Instructions: Take once a week. quetiapine 300 mg tablet 300 mg PO BEDTIME Qty: 14 0RF alprazolam [Xanax] 0.25 mg Tablet 0.25 mg PO BEDTIME lisdexamfetamine 10 mg capsule 10 mg PO QAM Qty: 30 0RF Rx Instructions: take no more than 3 times a week ( or less) preferably not more frequent than q other day. Partial Fill upon patient request. gabapentin 300 mg capsule 300 mg PO BEDTIME Qty: 14 0RF Stand Alone Forms: Patient Portal Discharge page Print Language: Greenlandic
--- NOTE | 2024-10-22 13:53 | HO.PHP ---
[facility] staff member followed up with Corry for a short duration during the last group of the day to assess safety due to them reporting SI with a plan and without intent. Corry disclosed that they have the same plan of utilizing their grandfather's shot gun, although they do not have access to his gun or even know where it is. Corry also voiced that their is no ammunition with it either. Therefor, she has no means to her plan. Corry mentioned lately they have been obsessing over the SI thoughts and have also been thinking because of their weight they probably could drink themselves to . Again, Corry disclosed no intent to act on this plan and stated they are just thoughts. [facility] staff member explored their protective factors which were her , family, and being afraid to get in trouble or disappoint someone. Corry did share that the medications they are on, has also been triggering because it makes them think of overdosing. Corry voiced that they are very open with their and the has most of the medications locked up and they are going to talk to them about locking the remainder up today. Corry shared that her parents are away on vacation for a week, in which they are worried about losing a main support for that long. Corry lastly noted that her is also going to be working 2nd and 3rd shift this week, so they developed plans on ways to keep them safe. Corry reported that her friend is staying over tonight and then the following two nights after that they will be staying with their brother. Corry disclosed overall she is feeling safe.
[2024-10-24 09:16] VITALS: BP 131/89; PULSE 68
--- NOTE | 2024-10-25 11:58 | HO.PHPPROGNO ---
Subjective Subjective Reason For Visit: bipolar,PTSD Diagnostics Vital Signs (24Hr): BMI result Body Mass Index 18.1 Assessment & Plan Certification I certify that partial hospital treatment is medically necessary due to the symptoms and problems resulting from the patient's mental illness and the failure to treat the patient at the partial hospital level of care would likely result in the patient requiring inpatient psychiatric care which could not be prevented at a less intensive level of care. Total time managing care of this patient today ____ minutes. Discharge Plan Discharge Attending provider: Hafsa Hanson Medications: New clonazepam 0.5 mg tablet 0.25 - 0.5 mg PO DAILY Qty: 10 0RF memantine 7 mg capsule,sprinkle,ER 24hr 7 mg PO .qhs Qty: 30 0RF lamotrigine 25 mg tablet 50 mg PO DAILY 14 Days Qty: 28 0RF Continued fludrocortisone 0.1 mg Tablet 0.2 mg PO DAILY sumatriptan succinate 100 mg Tablet See Rx Instructions .ROUTE .COMPLEX PRN (Reason: Migraine Headache) Rx Instructions: Take on tab as needed. May repeat in 2 hours if ineffective. Do not exceed 2 doses per 24 hrs omeprazole 10 mg Capsule,Delayed Release(Dr/Ec) 10 mg PO DAILY Patient Comments: Patient aware to take this medication an hour prior to taking other medications and prior to eating. gabapentin 100 mg capsule 100 - 200 mg PO BID Qty: 60 0RF Patient Comments: Patient stated she has not been taking this. Rx Instructions: in AM and afternoon ergocalciferol (vitamin D2) [Vitamin D2] 1,250 mcg (50,000 unit) capsule 1,250 mcg PO QWEEK Qty: 8 0RF Rx Instructions: Take once a week. quetiapine 300 mg tablet 300 mg PO BEDTIME Qty: 14 0RF lisdexamfetamine 10 mg capsule 10 mg PO QAM Qty: 30 0RF Rx Instructions: take no more than 3 times a week ( or less) preferably not more frequent than q other day. Partial Fill upon patient request. gabapentin 300 mg capsule 300 mg PO BEDTIME Qty: 14 0RF alprazolam [Xanax] 0.25 mg Tablet 0.25 mg PO BEDTIME 14 Days Qty: 14 0RF Changed aripiprazole 2 mg tablet 4 mg PO BEDTIME 14 Days Qty: 28 0RF Stand Alone Forms: Patient Portal Discharge page Print Language: Greenlandic
--- NOTE | 2024-10-25 14:23 | HO.PHP ---
[facility] staff member met with Corry due to them appearing to be dysregulated prior to group two beginning. Corry stated that they are not physically feeling well and are concerned about their health. PHP staff member explored with Corry if they would like to go to the ED to be evaluated medically because the staff heard about her passing out the previous day. Corry disclosed that they will think about it. Corry shared that they are not purposefully restricting food and stated that they received stomach pains and nausea whenever they eat. The med provider, Angelica, came in suggesting that Corry completes a eating disorder inpatient before continuing in treatment here. PHP staff member informed Angelica that they are reporting pain and we were discussing going to the ED for a medical evaluation. When Angelica left, Corry and staff continued to engage in conversation. Corry shared that last year they had a colonoscopy and they had polyps on it and that colon cancer runs in their family. Corry voiced that next week they have a colonoscopy and they were planning on cancelling because of her weight loss. PHP staff member suggested that they talk with their doctor first prior to cancelling to see if they feel that is necessary. Corry appeared receptive. Corry also shared that they spoke with their and they are thinking of doing the inpatient through [facility] and is going to speak with PHP staff member September for a referral. PHP staff member was receptive. Corry was able to regulate and return to group.
--- NOTE | 2024-10-25 15:00 | HO.PHP ---
This writer technical publications brought pt over the the ED from PHP d/t restricting food, lack of nutrition and fluids for multiple days, and passing out on more than once occasion. Pt has had significant weight loss within the past month, experiencing pain when eating, and their partner is working 14 hour days along with family supports being out of town. PHP expressed concern solely for the pt's medical needs and work-up to rule out any abnormal findings d/t the long weekend, the program would not be able to follow-up with immediate needs. Pt expressed no safety concerns, and denies SI, plan, or intent prior to walking over to the ED.
--- NOTE | 2024-10-29 22:56 | P.PNPSP_ITS ---
Subjective Subjective Date of Service: 10/29/24 Reason For Visit: bipolar,PTSD Interim History: Patient currently tolerating increase in Lamictal to 50 continues on Abilify at 2 mg, memantine 7, gabapentin 300, Seroquel 300. She has not been taking gabapentin 100s but does feel she needs the 300 mg for sleep she has also transitioned well she feels to clonazepam from Xanax she feels it is helpful taking it at night feels it helps asleep. Going concerns around her eating, restricting and coming to terms with disorganized eating behaviors that have been longstanding, related to both body dysmorphia, control issues as well as or appetite loss of hunger cues. She complains of stomachaches mild nausea I suggest this fact could be her hunger Q but does not feel credibly compelled to eat clinician is currently helping her with a referral to [facility]. She states she has taken Vyvanse but every other day and not on weekends she took it this morning she does not feel that it influences her appetite or eating the hat patterns she feels in fact her eating behaviors or no better when she is not on a stimulant as she will sometimes forget to eat. He is due for lab work and will be checked for elevated prolactin level quetiapine usually not considered to be as problematic as other antidepressants but nonetheless she is on 300 mg she endorses vision changes especially in her right eye more than left with blurred vision that has been going on for at least a number of months if not longer. Still struggling with focused concentration ?I really have a lot of difficulty engaging conversation my 9 in blanked. It is hard to tell depression from just this blank feeling, anhedonia just hard caring about things in general. She suspects that her cognitive issues might be the cause what she is perceiving as depression Vyvanse is of limited benefit. She has not been ever 10 mg I have due to eating habits not be practical she increased she does not feel that holding her Vyvanse she eats any better. She is agreeable to adding mirtazapine on as a PRN for sleep and I suggest she moves clonazepam over to the daytime help manage anxiety. Endorses transient SI thoughts, that she is not currently focused on the she recounts her experience going to the ED on Monday having recent blackouts felt to be due to limitations in her diet. Medication Compliance: Yes Side effects from medications: No Attending Groups: Yes Review of Systems Acute medical concerns: No Mental Status Exam Mental Status Exam Narrative: Alert, oriented, in no acute distress. Calm, cooperative, engaged, well- related.No psychomotor agitation or neurovegetative retardation. Eye contact intense, decreased blinking. Mood depressed, affect constricted but brighter than expected, some incongruency. Speech normal. Thought process logical, linear, coherent. Thought content related to stressors, transient hopelessness, denies current SI. No HI. No paranoia or delusional content elicited. No evidence of psychosis. Insight and judgment - fair but adequate. Diagnostics Vital Signs (24Hr): BMI result Body Mass Index 18.1 Assessment & Plan Assessment & Plan (1) Complex posttraumatic stress disorder: Status: Acute Code(s): F43.10 - Post-traumatic stress disorder, unspecified (2) Mild neurocognitive disorder due to traumatic brain injury: Status: Acute Code(s): S06.9XAS - Unspecified intracranial injury with loss of consciousness status unknown, sequela; F06.70 - Mild neurocognitive disorder due to known physiological condition without behavioral disturbance (3) Bipolar affective disorder, depressed: Status: Acute Code(s): F31.30 - Bipolar disorder, current episode depressed, mild or moderate severity, unspecified Plan continue PHP start mirtazapine 7.5 mg qhs move clonazepam 0.25-0.5 mg from night, to day time to target anxiety continue Abilify 2 mg qhs continue lamotrigine to 50 mg qd continue gabapentin 300 mg qhs patient does not utilize 100 mg doses (will discont) continue memantine ER 7 mg qhs for treating traumatic brain injury decrease Seroquel to 250 mg qhs continue other regular medications? Routine lab work ordered as indicated - will recheck prolactin (consider SGA AE >> other medical causes) EKG, routine for baseline QTc for medication considerations as indicated UDS as indicated VS reviewed: afebrile, BP 127/82;?56 bpm Continue to monitor Patient educated on: diagnosis, medication risk/benefits and medical condition Informed Consent: understands Reason for contiued partial hosp. stay Substantial Risk for: med/psych decompensation Certification I certify that partial hospital treatment is medically necessary due to the symptoms and problems resulting from the patient's mental illness and the failure to treat the patient at the partial hospital level of care would likely result in the patient requiring inpatient psychiatric care which could not be prevented at a less intensive level of care. Total time managing care of this patient today _30___ minutes. Discharge Plan Discharge Attending provider: Hafsa Hanson Medications: New memantine 7 mg capsule,sprinkle,ER 24hr 7 mg PO .qhs Qty: 30 0RF lamotrigine 25 mg tablet 50 mg PO DAILY 14 Days Qty: 28 0RF mirtazapine 7.5 mg tablet 7.5 mg PO BEDTIME Qty: 20 0RF quetiapine 100 mg tablet 100 mg PO BID Qty: 30 0RF Continued fludrocortisone 0.1 mg Tablet 0.2 mg PO DAILY sumatriptan succinate 100 mg Tablet See Rx Instructions .ROUTE .COMPLEX PRN (Reason: Migraine Headache) Rx Instructions: Take on tab as needed. May repeat in 2 hours if ineffective. Do not exceed 2 doses per 24 hrs omeprazole 10 mg Capsule,Delayed Release(Dr/Ec) 10 mg PO DAILY Patient Comments: Patient aware to take this medication an hour prior to taking other medications and prior to eating. ergocalciferol (vitamin D2) [Vitamin D2] 1,250 mcg (50,000 unit) capsule 1,250 mcg PO QWEEK Qty: 8 0RF Rx Instructions: Take once a week. quetiapine 300 mg tablet 300 mg PO BEDTIME Qty: 14 0RF lisdexamfetamine 10 mg capsule 10 mg PO QAM Qty: 30 0RF Rx Instructions: take no more than 3 times a week ( or less) preferably not more frequent than q other day. Partial Fill upon patient request. gabapentin 300 mg capsule 300 mg PO BEDTIME Qty: 14 0RF clonazepam 0.5 mg tablet 0.25 - 0.5 mg PO DAILY Qty: 20 0RF Changed aripiprazole 2 mg tablet 4 mg PO BEDTIME 14 Days Qty: 28 0RF Discontinued gabapentin 100 mg capsule 100 - 200 mg PO BID Qty: 60 0RF Patient Comments: Patient stated she has not been taking this. Rx Instructions: in AM and afternoon alprazolam [Xanax] 0.25 mg Tablet 0.25 mg PO BEDTIME Stand Alone Forms: Patient Portal Discharge page Print Language: Slovenian
--- NOTE | 2024-11-04 15:16 | HO.PHP ---
PHP staff member met with Corry to develop a relapse prevention plan. Corry noted some signs that they may use are isolation, depression, and being around certain family members who utilize substances. Corry voiced the people they could reach out to are her , brother, sisters, and two friends. Corry voiced five ways that they can get their mind off of using is birding, going for a drive, play video games, drink non alcoholic seltzers, and watch a movie.
--- NOTE | 2024-11-06 22:28 | P.PNPSP_ITS ---
Subjective Subjective Date of Service: 11/04/24 Reason For Visit: bipolar,PTSD Diagnostics Vital Signs (24Hr): BMI result Body Mass Index 18.1 Assessment & Plan Certification I certify that partial hospital treatment is medically necessary due to the symptoms and problems resulting from the patient's mental illness and the failure to treat the patient at the partial hospital level of care would likely result in the patient requiring inpatient psychiatric care which could not be prevented at a less intensive level of care. Total time managing care of this patient today ____ minutes. Discharge Plan Discharge Attending provider: Hafsa Hanson Medications: New memantine 7 mg capsule,sprinkle,ER 24hr 7 mg PO .qhs Qty: 30 0RF lamotrigine 25 mg tablet 50 mg PO DAILY 14 Days Qty: 28 0RF mirtazapine 7.5 mg tablet 7.5 mg PO BEDTIME Qty: 20 0RF quetiapine 100 mg tablet 100 mg PO BID Qty: 30 0RF aripiprazole 2 mg tablet 2 mg PO DAILY Qty: 30 0RF aripiprazole 5 mg film 5 mg PO DAILY Qty: 30 0RF Continued fludrocortisone 0.1 mg Tablet 0.2 mg PO DAILY sumatriptan succinate 100 mg Tablet See Rx Instructions .ROUTE .COMPLEX PRN (Reason: Migraine Headache) Rx Instructions: Take on tab as needed. May repeat in 2 hours if ineffective. Do not exceed 2 doses per 24 hrs omeprazole 10 mg Capsule,Delayed Release(Dr/Ec) 10 mg PO DAILY Patient Comments: Patient aware to take this medication an hour prior to taking other medications and prior to eating. ergocalciferol (vitamin D2) [Vitamin D2] 1,250 mcg (50,000 unit) capsule 1,250 mcg PO QWEEK Qty: 8 0RF Rx Instructions: Take once a week. quetiapine 300 mg tablet 300 mg PO BEDTIME Qty: 14 0RF lisdexamfetamine 10 mg capsule 10 mg PO QAM Qty: 30 0RF Rx Instructions: take no more than 3 times a week ( or less) preferably not more frequent than q other day. Partial Fill upon patient request. gabapentin 300 mg capsule 300 mg PO BEDTIME Qty: 14 0RF Changed aripiprazole 2 mg tablet 4 mg PO BEDTIME 14 Days Qty: 28 0RF clonazepam 0.5 mg tablet 0.5 mg PO DAILY Qty: 20 0RF Discontinued gabapentin 100 mg capsule 100 - 200 mg PO BID Qty: 60 0RF Patient Comments: Patient stated she has not been taking this. Rx Instructions: in AM and afternoon alprazolam [Xanax] 0.25 mg Tablet 0.25 mg PO BEDTIME Stand Alone Forms: Patient Portal Discharge page Print Language: Cape Verdean
--- NOTE | 2024-11-08 12:43 | HO.PHPPROGNO ---
Subjective Subjective Date of Service: 11/08/24 Reason For Visit: bipolar,PTSD Diagnostics Vital Signs (24Hr): BMI result Body Mass Index 18.1 Assessment & Plan Certification I certify that partial hospital treatment is medically necessary due to the symptoms and problems resulting from the patient's mental illness and the failure to treat the patient at the partial hospital level of care would likely result in the patient requiring inpatient psychiatric care which could not be prevented at a less intensive level of care. Total time managing care of this patient today ____ minutes. Discharge Plan Discharge Attending provider: Hafsa Hanson Medications: New memantine 7 mg capsule,sprinkle,ER 24hr 7 mg PO .qhs Qty: 30 0RF lamotrigine 25 mg tablet 50 mg PO DAILY 14 Days Qty: 28 0RF mirtazapine 7.5 mg tablet 7.5 mg PO BEDTIME Qty: 20 0RF quetiapine 100 mg tablet 100 mg PO BID Qty: 30 0RF aripiprazole 2 mg tablet 2 mg PO DAILY Qty: 30 0RF aripiprazole 5 mg film 5 mg PO DAILY Qty: 30 0RF naltrexone 50 mg tablet 25 - 50 mg PO BEDTIME Qty: 20 0RF Continued fludrocortisone 0.1 mg Tablet 0.2 mg PO DAILY sumatriptan succinate 100 mg Tablet See Rx Instructions .ROUTE .COMPLEX PRN (Reason: Migraine Headache) Rx Instructions: Take on tab as needed. May repeat in 2 hours if ineffective. Do not exceed 2 doses per 24 hrs omeprazole 10 mg Capsule,Delayed Release(Dr/Ec) 10 mg PO DAILY Patient Comments: Patient aware to take this medication an hour prior to taking other medications and prior to eating. ergocalciferol (vitamin D2) [Vitamin D2] 1,250 mcg (50,000 unit) capsule 1,250 mcg PO QWEEK Qty: 8 0RF Rx Instructions: Take once a week. quetiapine 300 mg tablet 300 mg PO BEDTIME Qty: 14 0RF lisdexamfetamine 10 mg capsule 10 mg PO QAM Qty: 30 0RF Rx Instructions: take no more than 3 times a week ( or less) preferably not more frequent than q other day. Partial Fill upon patient request. gabapentin 300 mg capsule 300 mg PO BEDTIME Qty: 14 0RF Changed aripiprazole 2 mg tablet 4 mg PO BEDTIME 14 Days Qty: 28 0RF clonazepam 0.5 mg tablet 0.5 mg PO DAILY Qty: 20 0RF Discontinued gabapentin 100 mg capsule 100 - 200 mg PO BID Qty: 60 0RF Patient Comments: Patient stated she has not been taking this. Rx Instructions: in AM and afternoon alprazolam [Xanax] 0.25 mg Tablet 0.25 mg PO BEDTIME Stand Alone Forms: Patient Portal Discharge page Print Language: Gambian
--- NOTE | 2024-11-11 22:54 | P.PNPSP_ITS ---
Subjective Subjective Date of Service: 11/11/24 Reason For Visit: bipolar,PTSD Interim History: Still struggling with po intake, feels they are not recognizing hunger cues (even as stomach growls, states they dont feel hungry). Food at times can be repulsive. Has struggled in the past with bouts of weight loss although this might be worst. Questions if it related to concussion, since feels problem predates their medications. (Pt admitted with these issues and was on Seroquel 300). Seroquel now at 200 with Abilify at 5 mg. Headache reportedly resolved since increasing dose. Feeling emotionally more even . Has been able to eat a meal more regularly in evening, feels mirtazapine 15 mg helping with that (although takes mirtazapine HS - and unable to eat throughout day until evening). A little less sedating at 15 vs 7.5. Has been slepeing well with gabapentin but ran out last night so didn't sleep as well. Amidst intake process at [facility], patient fully engaged and anticipating treatment. Neurology appointment in January. Medication Compliance: Yes Side effects from medications: No Attending Groups: Yes Review of Systems Acute medical concerns: Yes Disorganized eating behaviors/restricting vs low appetite vs hunger cue dysfx Mental Status Exam Mental Status Exam Narrative: Alert, oriented, in no acute distress. Calm, cooperative, engaged, well- related.No psychomotor agitation or neurovegetative retardation. Eye contact int ense, decreased blinking. Mood less depressed, affect less constricted, more range of affect, some incongruency, no lability noted. Speech normal. Thought process logical, linear, coherent. Thought content related to stressors, helpleness, denies current SI. No HI. No paranoia or delusional content elicited. No evidence of psychosis. Insight and judgment - fair but adequate. Patient Appearance: Well Grooomed and Appropriate Patient Orientation: Person, Place, Time and Situation Level of Consciousness: Awake and Appropriate Patient Behavior: Appropriate, Cooperative and Good Eye Contact Mood Description: Calm Affect Description: Blunted Patient Cognition Impaired: Yes Ability to Follow Directions: Good Speech Pattern: Clear and Appropriate Diagnostics Vital Signs (24Hr): BMI result Body Mass Index 18.1 Assessment & Plan Assessment & Plan (1) Complex posttraumatic stress disorder: Status: Acute Code(s): F43.10 - Post-traumatic stress disorder, unspecified (2) Mild neurocognitive disorder due to traumatic brain injury: Status: Acute Code(s): S06.9XAS - Unspecified intracranial injury with loss of consciousness status unknown, sequela; F06.70 - Mild neurocognitive disorder due to known physiological condition without behavioral disturbance (3) Bipolar affective disorder, depressed: Status: Acute Code(s): F31.30 - Bipolar disorder, current episode depressed, mild or moderate severity, unspecified Plan continue PHP continue mirtazapine 15 mg qhs continue Abilify 5 mg qhs will take Seroquel 100 mg qhs to see if affects appetite (otherwise continue with cross titration to Abilify) continue naltrexone 25 mg qhs continue lamotrigine 50 mg qd continue gabapentin 300 mg qhs increase memantine ER to 14 mg qhs for treating traumatic brain injury continue clonazepam 0.25-0.5 mg qd continue other regular medications? Routine lab work ordered as indicated - will recheck prolactin (consider SGA AE >> other medical causes) EKG, routine for baseline QTc for medication considerations as indicated UDS as indicated VS reviewed: afebrile, BP 127/82;?56 bpm Continue to monitor Patient educated on: diagnosis and medication risk/benefits Informed Consent: understands Reason for contiued partial hosp. stay Substantial Risk for: harm to self (?eating behaviors), inability to function, rapid decompensation and med/psych decompensation Certification I certify that partial hospital treatment is medically necessary due to the symptoms and problems resulting from the patient's mental illness and the failure to treat the patient at the partial hospital level of care would likely result in the patient requiring inpatient psychiatric care which could not be prevented at a less intensive level of care. Total time managing care of this patient today __40__ minutes. Discharge Plan Discharge Attending provider: Hafsa Hanson Medications: New memantine 7 mg capsule,sprinkle,ER 24hr 7 mg PO .qhs Qty: 30 0RF lamotrigine 25 mg tablet 50 mg PO DAILY 14 Days Qty: 28 0RF mirtazapine 7.5 mg tablet 7.5 mg PO BEDTIME Qty: 20 0RF quetiapine 100 mg tablet 100 mg PO BID Qty: 30 0RF aripiprazole 2 mg tablet 2 mg PO DAILY Qty: 30 0RF aripiprazole 5 mg film 5 mg PO DAILY Qty: 30 0RF naltrexone 50 mg tablet 25 - 50 mg PO BEDTIME Qty: 20 0RF memantine 14 mg capsule,sprinkle,ER 24hr 14 mg PO DAILY Qty: 30 0RF Continued fludrocortisone 0.1 mg Tablet 0.2 mg PO DAILY sumatriptan succinate 100 mg Tablet See Rx Instructions .ROUTE .COMPLEX PRN (Reason: Migraine Headache) Rx Instructions: Take on tab as needed. May repeat in 2 hours if ineffective. Do not exceed 2 doses per 24 hrs omeprazole 10 mg Capsule,Delayed Release(Dr/Ec) 10 mg PO DAILY Patient Comments: Patient aware to take this medication an hour prior to taking other medications and prior to eating. ergocalciferol (vitamin D2) [Vitamin D2] 1,250 mcg (50,000 unit) capsule 1,250 mcg PO QWEEK Qty: 8 0RF Rx Instructions: Take once a week. quetiapine 300 mg tablet 300 mg PO BEDTIME Qty: 14 0RF lisdexamfetamine 10 mg capsule 10 mg PO QAM Qty: 30 0RF Rx Instructions: take no more than 3 times a week ( or less) preferably not more frequent than q other day. Partial Fill upon patient request. gabapentin 300 mg capsule 300 mg PO BEDTIME Qty: 30 0RF Changed aripiprazole 2 mg tablet 4 mg PO BEDTIME 14 Days Qty: 28 0RF clonazepam 0.5 mg tablet 0.5 mg PO DAILY Qty: 20 0RF Discontinued gabapentin 100 mg capsule 100 - 200 mg PO BID Qty: 60 0RF Patient Comments: Patient stated she has not been taking this. Rx Instructions: in AM and afternoon alprazolam [Xanax] 0.25 mg Tablet 0.25 mg PO BEDTIME Stand Alone Forms: Patient Portal Discharge page Print Language: Togolese
--- NOTE | 2024-11-15 17:52 | HO.PHPPROGNO ---
Subjective Subjective Date of Service: 11/14/24 Reason For Visit: bipolar,PTSD Diagnostics Vital Signs (24Hr): BMI result Body Mass Index 18.1 Assessment & Plan Certification I certify that partial hospital treatment is medically necessary due to the symptoms and problems resulting from the patient's mental illness and the failure to treat the patient at the partial hospital level of care would likely result in the patient requiring inpatient psychiatric care which could not be prevented at a less intensive level of care. Total time managing care of this patient today ____ minutes. Discharge Plan Discharge Attending provider: Hafsa Hanson Medications: New lamotrigine 25 mg tablet 50 mg PO DAILY 14 Days Qty: 28 0RF aripiprazole 5 mg film 5 mg PO DAILY Qty: 30 0RF memantine 14 mg capsule,sprinkle,ER 24hr 14 mg PO DAILY Qty: 30 0RF gabapentin 400 mg capsule 400 mg PO BEDTIME PRN (Reason: insomnia) Qty: 30 0RF Continued fludrocortisone 0.1 mg Tablet 0.2 mg PO DAILY sumatriptan succinate 100 mg Tablet See Rx Instructions .ROUTE .COMPLEX PRN (Reason: Migraine Headache) Rx Instructions: Take on tab as needed. May repeat in 2 hours if ineffective. Do not exceed 2 doses per 24 hrs omeprazole 10 mg Capsule,Delayed Release(Dr/Ec) 10 mg PO DAILY Patient Comments: Patient aware to take this medication an hour prior to taking other medications and prior to eating. ergocalciferol (vitamin D2) [Vitamin D2] 1,250 mcg (50,000 unit) capsule 1,250 mcg PO QWEEK Qty: 8 0RF Rx Instructions: Take once a week. Changed quetiapine 100 mg tablet 100 mg PO BEDTIME Qty: 30 0RF mirtazapine 15 mg tablet 15 mg PO BEDTIME PRN (Reason: sleep, appetite) Qty: 30 0RF clonazepam 0.5 mg tablet 0.5 mg PO DAILY PRN (Reason: Anxiety) Qty: 20 0RF Discontinued gabapentin 300 mg capsule 300 mg PO BEDTIME Qty: 14 0RF gabapentin 100 mg capsule 100 - 200 mg PO BID Qty: 60 0RF Patient Comments: Patient stated she has not been taking this. Rx Instructions: in AM and afternoon lisdexamfetamine 10 mg capsule 10 mg PO QAM Qty: 14 0RF Rx Instructions: take no more than 3 times a week ( or less) preferably not more frequent than q other day. Partial Fill upon patient request. quetiapine 300 mg tablet 300 mg PO BEDTIME Qty: 14 0RF alprazolam [Xanax] 0.25 mg Tablet 0.25 mg PO BEDTIME Stand Alone Forms: Patient Portal Discharge page Patient Education: Bipolar Disorder (ED), Bipolar Disorder (DC), Anorexia (DC), Anorexia (GEN) Print Language: Citizen Of [place]
== END 2024-11-15 23:59 | disposition home or self-care (01) ==
LOC: HO.PHPA 10:45
PROVIDERS: Visit Provider Psychiatry & Neurology Psychiatry
DX: F31.30 Bipolar disorder, current episode depressed, mild or moderate severity, unspecified (principal); F06.70 Mild neurocognitive disorder due to known physiological condition without behavioral disturbance; S06.9XAS Unspecified intracranial injury with loss of consciousness status unknown, sequela; F43.10 Post-traumatic stress disorder, unspecified; Z79.899 Other long term (current) drug therapy
CPT/HCPCS: 90791; 90853